=== PATIENT | female | born 1945 | race Caucasian/White ===

== ENCOUNTER → 2017-05-26 09:46 | Outpatient (CLI) | payer SELFPAY ==
[2017-05-26 12:04] LABS: Absolute Lymphocyte Count 2.91 X10^3/ul (0.83-4.51); Absolute Neutrophil Count 4.9 X10^3/uL (2.0-7.7); Basophil# 0.02 X10^3/uL; Basophil% 0.2 % (0-1); Eosinophil# 0.17 X10^3/uL; Hematocrit 36.2 % (37-47); Hemoglobin 11.6 g/dl (12.0-15.0); Lymphocyte # 2.91 X10^3/ul (4.0); Lymphocyte % 33.4 % (19-41); Mean Corpuscular Hgb 28.1 pg (27.0-32.0); Mean Corpuscular Volume 87.7 fL (81-99); Mean Platelet Vol. 11.2 fl (6.2-12.0); Monocyte# 0.65 X10^3/uL; Monocyte% 7.5 % (0-10); Neutrophil # 4.94 X10^3/uL (2.7-7.7); Neutrophil % 56.8 % (47-70); Platelet Count 274 K/mm3 (150-450); RBC Distribution Width CV 14.6 % (11.6-14.6); RBC Distribution Width SD 46.4 fl (35.1-43.9); Red Blood Count 4.13 M/mm3 (4.2-5.4); White Blood Count 8.7 K/mm3 (4.4-11.0)
[2017-05-26 12:21] LABS: POSITIVE COUNT NO; POSITIVE DIFFERENTIAL NO; POSITIVE MORPHOLOGY NO
[2017-05-26 12:23] LABS: Vitamin B12 834 pg/mL (211-911); Vitamin D,25 Hydroxy 16.8 ng/mL (29.95-100.01)
[2017-05-26 12:29] LABS: AST(SGOT) 24 U/L (15-37); Alanine Aminotransfer ALT/SGPT 29 U/L (13-56); Alkaline Phosphatase 101 U/L (45-117); Anion Gap 9 (5-15); BUN 17 mg/dL (7-18); BUN/Creat Ratio 18.8 RATIO (10-20); CRP < 2.90 mg/L (0.0-3.0); Calcium,Total 9.2 mg/dL (8.5-10.1); Chloride 105 mmol/L (98-107); EST Glomerular Filtration Rate 66 mL/min (>60); Est Glom Filt Rate - Afr Amer 79 mL/min (>60); Ferritin 76 ng/mL (8-252); Glucose 90 mg/dL (74-106); Magnesium 2.1 mg/dL (1.6-2.6); Potassium 4.5 mmol/L (3.5-5.1); Sodium Level 138 mmol/L (136-145); Thyroid Stim Hormone (TSH) 0.72 uIU/mL (0.358-3.74)
== END ==
PROVIDERS: Family Provider Family Medicine; PCP Family Medicine; Visit Provider Family Medicine
DX: K50.80 Crohn's disease of both small and large intestine without complications (principal); D53.9 Nutritional anemia, unspecified
CPT/HCPCS: 36415; 80053; 82306; 82607; 82728; 82746; 83735; 84443; 85025; 86140

== ENCOUNTER → 2017-08-26 10:00 | Outpatient (CLI) | payer MEDICARE, BC, SELFPAY ==
[2017-08-26 12:04] LABS: Absolute Lymphocyte Count 1.75 X10^3/ul (0.83-4.51); Absolute Neutrophil Count 4.5 X10^3/uL (2.0-7.7); Basophil# 0.02 X10^3/uL; Basophil% 0.3 % (0-1); Eosinophils% 2.9 % (0-5); Hematocrit 36.2 % (37-47); Hemoglobin 11.3 g/dl (12.0-15.0); Lymphocyte # 1.75 X10^3/ul (4.0); Lymphocyte % 25.7 % (19-41); Mean Corp Hgb Conc 31.2 g/gl (32-36); Mean Corpuscular Volume 89.6 fL (81-99); Mean Platelet Vol. 11.1 fl (6.2-12.0); Monocyte# 0.33 X10^3/uL; Monocyte% 4.9 % (0-10); Neutrophil # 4.49 X10^3/uL (2.7-7.7); Neutrophil % 66.1 % (47-70); Platelet Count 257 K/mm3 (150-450); RBC Distribution Width CV 13.7 % (11.6-14.6); RBC Distribution Width SD 45.4 fl (35.1-43.9); Red Blood Count 4.04 M/mm3 (4.2-5.4); White Blood Count 6.8 K/mm3 (4.4-11.0)
[2017-08-26 12:06] LABS: POSITIVE COUNT NO; POSITIVE DIFFERENTIAL NO; POSITIVE MORPHOLOGY NO
[2017-08-26 12:30] LABS: AST(SGOT) 30 U/L (15-37); Alanine Aminotransfer ALT/SGPT 29 U/L (13-56); Alkaline Phosphatase 99 U/L (45-117); Anion Gap 7 (5-15); BUN 15 mg/dL (7-18); CRP 5.31 mg/L (0.0-3.0); Calcium,Total 9.1 mg/dL (8.5-10.1); Chloride 106 mmol/L (98-107); Creatinine, Serum 0.84 mg/dL (0.55-1.02); EST Glomerular Filtration Rate 72 mL/min (>60); Est Glom Filt Rate - Afr Amer 87 mL/min (>60); Ferritin 54 ng/mL (8-252); Glucose 100 mg/dL (74-106); Hemoglobin A1c 5.8 % (4.2-6.3); Magnesium 2.3 mg/dL (1.6-2.6); Potassium 4.4 mmol/L (3.5-5.1); Sodium Level 138 mmol/L (136-145)
== END ==
PROVIDERS: Family Provider Family Medicine; PCP Family Medicine; Visit Provider Family Medicine
DX: K50.80 Crohn's disease of both small and large intestine without complications (principal); E11.9 Type 2 diabetes mellitus without complications; M79.7 Fibromyalgia
CPT/HCPCS: 36415; 80053; 82728; 83036; 83735; 85025; 86140

== ENCOUNTER → 2018-01-03 09:41 | Outpatient (CLI) | payer MEDICARE, BC, SELFPAY ==
--- NOTE | 2018-01-03 09:43 | ECHOD_ITS ---
Reason For Study: MURMUR Procedure This was a 2D Doppler, Color Flow transthoracic echocardiogram. Exam performed in department. Left Ventricle Normal LV size. Left ventricular systolic function is normal. The estimated ejection fraction is 68 %. Stage 1 diastolic dysfunction. No regional wall motion abnormalities noted. Right Ventricle Normal RV size. Normal systolic function. Atria Normal left atrium. Normal right atrium. Mitral Valve There is mild mitral annular calcification. Tricuspid Valve Normal tricuspid valve. Aortic Valve Trisinus/trileaflet aortic valve. Mild focal aortic valve calcification. Mild to moderate aortic stenosis. Peak aortic valve gradient 29 mmHg. Mean aortic valve gradient 18 mmHg. Calculated aortic valve area (continuity equation) is 1.1 cm2. Pulmonic Valve Normal pulmonic valve. Great Vessels Normal aortic root. The pulmonary artery is normal size. Normal inferior vena cava. Pericardium/Pleural No pericardial effusion. MMode/2D Measurements & Calculations LVIDd: 4.1 cm IVSd: 1.2 cm LVOT diam: 2.0 cm LVIDs: 2.9 cm LVPWd: 1.1 cm LVOT area: 3.1 cm2 RVDd: 3.1 cm FS: 30.5 % Ao root diam: 3.3 cm LAV(MOD-bp): 41.4 ml LVAd ap4: 24.8 cm2 LA dimension: 4.0 cm LAV(MOD-bp) Indexed: 21.9 ml/m2 EDV(MOD-sp4): 61.4 ml LAV(MOD-sp2): 46.8 ml EDV(sp4-el): 64.8 ml LAV(MOD-sp4): 32.9 ml LVAs ap4: 11.3 cm2 ESV(MOD-sp4): 18.3 ml ESV(sp4-el): 18.2 ml EF(MOD-sp4): 70.2 % EF(sp4-el): 71.9 % SV(MOD-sp4): 43.1 ml SV(sp4-el): 46.6 ml Aortic Valve Planimetry: 1.2 cm2 LA A4 area: 13.2 cm2 LA dimension(2D): 4.0 cm RA A4 area: 9.9 cm2 Time Measurements MV dec time: 0.24 sec Doppler Measurements & Calculations MV E max garret: 99.9 cm/sec Lat Peak E' Garret: 7.4 cm/sec Med Peak E' Garret: 7.9 cm/sec MV A max garret: 119.8 cm/sec E/E' lat: 13.5 E/E' med: 12.6 MV E/A: 0.83 MV V2 max: 125.7 cm/sec Ao V2 max: 271.9 cm/sec LV V1 max: 101.1 cm/sec MV max P.3 mmHg Ao max P.6 mmHg LV V1 max P.1 mmHg MV V2 mean: 78.1 cm/sec Ao V2 mean: 201.2 cm/sec LV V1 mean P.2 mmHg MV mean P.7 mmHg Ao mean P.8 mmHg LV V1 mean: 70.4 cm/sec MV V2 VTI: 32.1 cm Ao V2 VTI: 57.4 cm LV V1 VTI: 22.9 cm MVA(VTI): 2.2 cm2 KAMLESH(I,D): 1.2 cm2 KAMLESH(V,D): 1.1 cm2 SV(LVOT): 70.0 ml PA V2 max: 119.6 cm/sec TR max garret: 203.6 cm/sec TR max P.6 mmHg MV P1/2t-pr_phl: 78.1 msec Interpretation Summary Normal LV size. Left ventricular systolic function is normal. The estimated ejection fraction is 68 %. Stage 1 diastolic dysfunction. Mild to moderate aortic stenosis. Calculated aortic valve area (continuity equation) is 1.1 cm2. Ordering Physician: Shaun Del Valle Referring Physician: JAMIE FUENTES Performed By: Ghazala Espinoza, LORRIE, RVT
== END ==
PROVIDERS: Family Provider Family Medicine; PCP Family Medicine; Referring Provider Internal Medicine Cardiovascular Disease; Visit Provider Internal Medicine Cardiovascular Disease
DX: I35.0 Nonrheumatic aortic (valve) stenosis (principal)
CPT/HCPCS: 93306

== ENCOUNTER → 2018-01-05 08:52 | Outpatient (CLI) | payer MEDICARE, BC, SELFPAY ==
[2018-01-05 10:19] LABS: Absolute Lymphocyte Count 1.62 X10^3/ul (0.83-4.51); Absolute Neutrophil Count 3.8 X10^3/uL (2.0-7.7); Basophil# 0.02 X10^3/uL; Basophil% 0.3 % (0-1); Eosinophil# 0.17 X10^3/uL; Eosinophils% 2.8 % (0-5); Hematocrit 35.3 % (37-47); Lymphocyte # 1.62 X10^3/ul (4.0); Lymphocyte % 26.9 % (19-41); Mean Corp Hgb Conc 31.2 g/gl (32-36); Mean Corpuscular Hgb 27.2 pg (27.0-32.0); Mean Corpuscular Volume 87.2 fL (81-99); Mean Platelet Vol. 10.4 fl (6.2-12.0); Monocyte# 0.44 X10^3/uL; Monocyte% 7.3 % (0-10); Neutrophil # 3.77 X10^3/uL (2.7-7.7); Neutrophil % 62.5 % (47-70); Platelet Count 278 K/mm3 (150-450); RBC Distribution Width CV 15.1 % (11.6-14.6); RBC Distribution Width SD 48.6 fl (35.1-43.9); Red Blood Count 4.05 M/mm3 (4.2-5.4)
[2018-01-05 10:21] LABS: POSITIVE COUNT NO; POSITIVE DIFFERENTIAL NO; POSITIVE MORPHOLOGY NO
[2018-01-05 10:28] LABS: Erythrocyte Sedimentation Rate 41 mm/hr (0-30)
[2018-01-05 10:53] LABS: Ferritin 40 ng/mL (8-252); Thyroid Stim Hormone (TSH) 0.59 uIU/mL (0.358-3.74)
[2018-01-05 11:34] LABS: Vitamin D,25 Hydroxy 31.6 ng/mL (29.95-100.01)
[2018-01-06 11:12] LABS: Vitamin B12 441 pg/mL (211-911)
[2018-01-10 11:53] LABS: Zinc, Plasma or Serum 75 ug/dL (56-134)
== END ==
PROVIDERS: Family Provider Family Medicine; PCP Family Medicine; Visit Provider Family Medicine
DX: R53.83 Other fatigue (principal); K50.80 Crohn's disease of both small and large intestine without complications; E11.9 Type 2 diabetes mellitus without complications; K13.0 Diseases of lips
CPT/HCPCS: 36415; 82306; 82607; 82728; 82746; 84443; 84630; 85025; 85652

== ENCOUNTER → 2018-02-24 09:52 | Outpatient (CLI) | payer MEDICARE, BC, SELFPAY ==
[2018-02-24 12:22] LABS: Absolute Lymphocyte Count 1.76 X10^3/ul (0.83-4.51); Absolute Neutrophil Count 3.5 X10^3/uL (2.0-7.7); Basophil# 0.01 X10^3/uL; Basophil% 0.2 % (0-1); Eosinophil# 0.14 X10^3/uL; Eosinophils% 2.4 % (0-5); Hematocrit 36.3 % (37-47); Hemoglobin 11.4 g/dl (12.0-15.0); Lymphocyte # 1.76 X10^3/ul (4.0); Lymphocyte % 30.6 % (19-41); Mean Corp Hgb Conc 31.4 g/gl (32-36); Mean Corpuscular Hgb 26.7 pg (27.0-32.0); Mean Platelet Vol. 11.1 fl (6.2-12.0); Monocyte# 0.35 X10^3/uL; Monocyte% 6.1 % (0-10); Neutrophil % 60.7 % (47-70); Platelet Count 229 K/mm3 (150-450); RBC Distribution Width CV 14.4 % (11.6-14.6); RBC Distribution Width SD 44.5 fl (35.1-43.9); Red Blood Count 4.27 M/mm3 (4.2-5.4); White Blood Count 5.8 K/mm3 (4.4-11.0)
[2018-02-24 12:27] LABS: POSITIVE COUNT NO; POSITIVE DIFFERENTIAL NO; POSITIVE MORPHOLOGY NO
[2018-02-24 12:40] LABS: Erythrocyte Sedimentation Rate 36 mm/hr (0-30)
[2018-02-24 12:41] LABS: Vitamin B12 478 pg/mL (211-911); Vitamin D,25 Hydroxy 25.9 ng/mL (29.95-100.01)
[2018-02-24 12:44] LABS: AST(SGOT) 29 U/L (15-37); Alanine Aminotransfer ALT/SGPT 32 U/L (13-56); Albumin, Serum 3.9 g/dL (3.2-5.0); Alkaline Phosphatase 103 U/L (45-117); Anion Gap 10 (5-15); BUN 12 mg/dL (7-18); BUN/Creat Ratio 15.1 RATIO (10-20); Calcium,Total 8.9 mg/dL (8.5-10.1); Chloride 106 mmol/L (98-107); EST Glomerular Filtration Rate 76 mL/min (>60); Est Glom Filt Rate - Afr Amer 92 mL/min (>60); Ferritin 36 ng/mL (8-252); Globulin 4.1 g/dL (2.2-4.2); Glucose 75 mg/dL (74-106); Magnesium 2.2 mg/dL (1.6-2.6); Potassium 4.1 mmol/L (3.5-5.1); Sodium Level 140 mmol/L (136-145); Thyroid Stim Hormone (TSH) 0.68 uIU/mL (0.358-3.74)
== END ==
PROVIDERS: Family Provider Family Medicine; PCP Family Medicine; Visit Provider Family Medicine
DX: K50.80 Crohn's disease of both small and large intestine without complications (principal)
CPT/HCPCS: 36415; 80053; 82306; 82607; 82728; 82746; 83735; 84443; 85025; 85652

== ENCOUNTER → 2018-03-29 08:09 | Outpatient (CLI) | payer MEDICARE, BC, SELFPAY ==
--- NOTE | 2018-03-29 08:14 | BI_ITS ---
MAMMOGRAPHY - BILATERAL SCREENING REASON FOR EXAM: Female, 72 years old. Routine annual screening examination. PERTINENT HISTORY: Non-contributory. TECHNIQUE: Digital bilateral breast joslyn (3D mammographic acquisition) in the CC and MLO projections. 2-D mediolateral oblique (MLO) and craniocaudad (CC) views of both breasts were obtained. CAD: Full Field Digital Mammography with Computer Added Detection was performed. COMPARISON: Comparison is made with prior study dated October 15, 2016 and April 17, 2015. FINDINGS: Breast Composition: The breasts are heterogeneously dense, which may obscure small masses. There are no dominant masses or suspicious calcifications. Stable benign-appearing bilateral axillary lymph nodes. No other significant abnormalities are identified. There has been no significant change since the prior study. BI/SCREENING MAMM (CAD), BILAT IMPRESSION: Stable bilateral screening mammogram. Yearly follow-up mammogram recommended. (A) ASSESSMENT CATEGORY: BIRADS Category 2: Benign. A letter regarding these results will be sent to the patient by the facility within 30 days. Approximately 10% of breast cancers are not detected by mammography. A normal mammogram should not delay biopsy of a clinically suspicious abnormality. [id number] Electronically Signed: Rohit Bryant MD at 9:51 EST Tel [phone], Service support ,
--- OUTSIDE RECORDS SUMMARY | 2018-05-31 08:49 | XMS RPT_ITS ---
:1945 Author Organization OHIP Support Name Relationship Address Phone DARNELL PENNINGTON Unavailable [address] + [place] [address] R Unavailable Unavailable Unavailable TRISTON DAVIS Unavailable [address] + [place] [address] GORGE, DARNELL Unavailable [address] + [place] [address] R Unavailable Unavailable Unavailable DAVISTRISTON Unavailable [address] + [place] [address] GORGE, DARNELL Unavailable [address] + [place] [address] R Unavailable Unavailable Unavailable TRISTON DAVIS Unavailable [address] + [place] [address] GORGE, DARNELL Unavailable [address] + [place] [address] R Unavailable Unavailable Unavailable TRISTON DAVIS Unavailable [address] + [place] [address] GORGE, DARNELL Unavailable [address] + [place] [address] R Unavailable Unavailable Unavailable TRISTON DAVIS Unavailable [address] + [place] [address] GORGE, DARNELL Unavailable [address] + [place] [address] R Unavailable Unavailable Unavailable DAVISTRISTON Unavailable [address] + [place] [address] GORGE, DARNELL Unavailable [address] + [place] [address] R Unavailable Unavailable Unavailable DAVISTRISTON Unavailable [address] + [place] [address] GORGE, DARNELL Unavailable [address] + [place] [address] R Unavailable Unavailable Unavailable TRISTON DAVIS Unavailable [address] + [place] [address] Care Team Providers Name Role Phone CORNELIUS, ESSENCE NABI Attending Unavailable CORNELIUS, ESSENCE NABI Referring Unavailable CORNELIUS, ESSENCE NABI Attending Unavailable CORNELIUS, ESSENCE NABI Referring Unavailable Ta, Jamie Attending Unavailable Ta, Jamie Primary Care Unavailable CORNELIUS, ESSENCE Consulting Unavailable Ta, Jamie Attending Unavailable Ta, Jamie Referring Unavailable Ta, Jamie Primary Care Unavailable Ta, Jamie Attending Unavailable Ta, Jamie Primary Care Unavailable CORNELIUS, ESSENCE Consulting Unavailable Ta, Jamie Attending Unavailable Ta, Jamie Primary Care Unavailable Eligio, Vinem[place] Attending Unavailable Ta, Jamie Referring Unavailable Eligio, Shaun Attending Unavailable Ta, Jamie Primary Care Unavailable Eligio, Shaun Referring Unavailable Eligio, Vinem[place] Attending Unavailable Eligio, [place] Referring Unavailable Ta, Jamie Primary Care Unavailable Eligio, [place] Consulting Unavailable Ta, Jamie Attending Unavailable Ta, Jamie Primary Care Unavailable PROBLEMS PROBLEMS DATE TYPE CONDITION / CODE ATTENDING STATUS SOURCE 02/24/2018 Unknown K50.80 - Crohn's Jamie Ta Active [place] disease of both Community small and large Hospital intestine without Repository complications / K50.80(ICD-10) 01/17/2018 Unknown R53.83 - Other Jamie Ta Active [place] fatigue / Community R53.83(ICD-10) Hospital Repository 01/05/2018 Unknown I35.0 - Eligio, Shaun Active [place] Nonrheumatic aortic Community (valve) stenosis / Hospital I35.0(ICD-10) Repository 12/23/2017 Unknown I10 - Essential Eligio, Shaun Active [place] (primary) Community hypertension / Hospital I10(ICD-10) Repository 08/26/2017 Unknown M79.7 - Jamie Ta Active [place] Fibromyalgia / Community M79.7(ICD-10) Hospital Repository PROCEDURES PROCEDURES No Procedure Records FoundRESULTS RESULTS SCREENING MAMM (CAD), Observed: 03/29/2018 Status: F Source: [place] 8:14 AM [facility] REPOSITORY [facility] Imaging Services [address] [place] [address] SCREENING MAMM (CAD), BILAT MR#: [id number] Acct: [id number] Name: FRANCINE DAVIS I Rep #: [id number] : 1945 F 72 From: Rohit Bryant MD PCP: Jamie Ta MD Status: REG CLI Study: SCREENING MAMM (CAD), BILAT Date of Exam: 03/29/18 Exam# [id number] Ordering Dr: Jamie Ta MD MAMMOGRAPHY - BILATERAL SCREENING REASON FOR EXAM: Female, 72 years old. Routine annual screening examination. PERTINENT HISTORY: Non-contributory. TECHNIQUE: Digital bilateral breast joslyn (3D mammographic acquisition) in the CC and MLO projections. 2-D mediolateral oblique (MLO) and craniocaudad (CC) views of both breasts were obtained. CAD: Full Field Digital Mammography with Computer Added Detection was performed. COMPARISON: Comparison is made with prior study dated October 15, 2016 and April 17, 2015. FINDINGS: Breast Composition: The breasts are heterogeneously dense, which may obscure small masses. There are no dominant masses or suspicious calcifications. Stable benign-appearing bilateral axillary lymph nodes. No other significant abnormalities are identified. There has been no significant change since the prior study. BI/SCREENING MAMM (CAD), BILAT IMPRESSION: Stable bilateral screening mammogram. Yearly follow-up mammogram recommended. (A) ASSESSMENT CATEGORY: BIRADS Category 2: Benign. A letter regarding these results will be sent to the patient by the facility within 30 days. Approximately 10% of breast cancers are not detected by mammography. A normal mammogram should not delay biopsy of a clinically suspicious abnormality. [id number] Electronically Signed: Rohit Bryant MD at 9:51 EST Tel [phone], Service support , CC: Jamie Ta MD Welder Machine Operator: Signed CBC W/DIFF, AUTOMATED Collected: 02/24/2018 Status: F Source: [place] 9:55 AM [facility] REPOSITORY TYPE CODE TESTS RESULT OUT OF RANGE REFERENCE UNITS LAB L100.1000 4.4-11.0 K/mm3 Normal WBC 5.8 LAB L100.1200 4.2-5.4 M/mm3 Normal RBC 4.27 LAB L100.1300 12.0-15.0 g/dl Low HGB 11.4 LAB L100.1400 37-47 % Low HCT 36.3 LAB L100.1500 81-99 fL Normal MCV 85.0 LAB L100.1600 27.0-32.0 pg Low MCH 26.7 LAB L100.1700 32-36 g/gl Low MCHC 31.4 LAB L100.1810 11.6-14.6 % Normal RDW CV 14.4 LAB L100.1820 35.1-43.9 fl High RDW SD 44.5 LAB L100.1900 150-450 K/mm3 Normal PLT 229 LAB L100.2000 6.2-12.0 fl Normal MPV 11.1 LAB L100.2100 47-70 % Normal NEUT% 60.7 LAB L100.2200 19-41 % Normal LY% 30.6 LAB L100.2300 0-10 % Normal MONO% 6.1 LAB L100.2400 0-5 % Normal EO% 2.4 LAB L100.2500 0-1 % Normal BASO% 0.2 LAB L100.2550 0.0-0.9 % Normal IM GRAN % 0.000 Result Comment: IG% - Immature Granulocytes (promyelocytes, myelocytes and metamyelocytes) > 1% indicates that a LEFT SHIFT is Present. LAB L100.2620 2.0-7.7 X10 3/uL Normal Absolute Neut 3.5 LAB L100.2720 0.83-4.51 X10 3/ul Normal Absolute Lymph 1.76 Performed By: #### L100.0100, L101.9900 #### [facility] [address] [place], [place], [id number] ERYTHROCYTE SED RATE Collected: 02/24/2018 Status: F Source: [place] 9:55 AM [facility] REPOSITORY TYPE CODE TESTS RESULT OUT OF RANGE REFERENCE UNITS LAB L102.0000 0-30 mm/hr High SED RATE 36 Performed By: #### L100.0100, L101.9900 #### [facility] [address] [place], [address] VITAMIN B12 Collected: 02/24/2018 Status: F Source: [place] 9:55 AM [facility] REPOSITORY TYPE CODE TESTS RESULT OUT OF RANGE REFERENCE UNITS LAB L503.0105 211-911 pg/mL Normal Vitamin B12 478 Performed By: #### L503.0105, L506.1000 #### [facility] [address] [place], [address] VITAMIN D,25 HYDROXY Collected: 02/24/2018 Status: F Source: [place] 9:55 AM [facility] REPOSITORY TYPE CODE TESTS RESULT OUT OF REFERENCE UNITS RANGE LAB L506.1000 29.95-100.01 ng/mL Low Vitamin D 25.9 25-OH Result Comment: Vitamin D 25(OH) Status Range Deficiency <20 ng/mL (50nmol/L) Insuffciency 20 - 30 ng/mL (50 - 75 nmol/L) Sufficiency 30 - 100 ng/mL (75 - 250 nmol/L) Toxicity >100 ng/mL (>250 nmol/L) Performed By: #### L503.0105, L506.1000 #### [facility] [address] [place], [address] COMPREHENSIVE METABOLIC Collected: 02/24/2018 Status: F Source: [facility] 9:55 AM [facility] REPOSITORY Order Comment: Is Patient Taking Vitamins or Folic Acid Supplements? N TYPE CODE TESTS RESULT OUT OF RANGE REFERENCE UNITS LAB L501.0100 74-106 mg/dL Normal GLU 75 Result Comment: Please note revised GLUCOSE reference range effective 2017. LAB L501.1000 7-18 mg/dL Normal BUN 12 LAB L501.1100 0.55-1.02 mg/dL Normal CREAT,SERUM 0.80 Result Comment: The validity of the calculated GFR AND GFRAA in patients over 70 years has not been determined. Clinical correlation is essential. LAB L501.1110 >60 mL/min Normal EST GFR 76 Result Comment: Non- GFR Calc LAB L501.1115 >60 mL/min Normal EST GFR - AA 92 Result Comment: GFR Calc LAB L501.1300 10-20 RATIO Normal BUN/CRE 15.1 LAB L501.1500 6.4-8.2 g/dL T Normal PROT 8.0 LAB L501.1800 3.2-5.0 g/dL Normal ALB 3.9 LAB L501.1950 2.2-4.2 g/dL Normal GLOB 4.1 LAB L501.2000 0.9-2.4 RATIO Normal A/G 1.0 LAB L501.2200 8.5-10.1 mg/dL CA Normal 8.9 LAB L501.4100 15-37 U/L Normal AST 29 LAB L501.4305 45-117 U/L Normal ALK P 103 LAB L501.4405 13-56 U/L Normal ALT 32 LAB L501.4600 0.20-1.00 mg/dL T Normal BILI 0.30 LAB L501.5300 136-145 mmol/L NA Normal 140 LAB L501.5600 3.5-5.1 mmol/L K Normal 4.1 LAB L501.5900 98-107 mmol/L CL Normal 106 LAB L501.6100 21.0-32.0 mmol/L Normal CO2 24.0 LAB L501.6200 5-15 Normal GAP 10 Performed By: #### L500.4050, L501.5200, L501.9520, L503.6550, L506.0250 #### [facility] [address] [facility] [place], [place], [address] MAGNESIUM Collected: 02/24/2018 Status: F Source: [place] 9:55 AM [facility] REPOSITORY Order Comment: Is Patient Taking Vitamins or Folic Acid Supplements? N TYPE CODE TESTS RESULT OUT OF RANGE REFERENCE UNITS LAB L501.5200 1.6-2.6 mg/dL Normal MG 2.2 Performed By: #### L500.4050, L501.5200, L501.9520, L503.6550, L506.0250 #### [facility] [address] [facility] [place], [address] THYROID STIM HORMONE Collected: 02/24/2018 Status: F Source: [place] ([place]) 9:55 AM [facility] REPOSITORY Order Comment: Is Patient Taking Vitamins or Folic Acid Supplements? N TYPE CODE TESTS RESULT OUT OF RANGE REFERENCE UNITS LAB L501.9520 0.358-3.74 uIU/mL Normal TSH 0.68 Performed By: #### L500.4050, L501.5200, L501.9520, L503.6550, L506.0250 #### [facility] [address] [place], [address] FERRITIN Collected: 02/24/2018 Status: F Source: [place] 9:55 AM [facility] REPOSITORY Order Comment: Is Patient Taking Vitamins or Folic Acid Supplements? N TYPE CODE TESTS RESULT OUT OF RANGE REFERENCE UNITS LAB L503.6550 8-252 ng/mL Normal FERRITIN 36 Performed By: #### L500.4050, L501.5200, L501.9520, L503.6550, L506.0250 #### [facility] [address] [place], [address] FOLATES, (FOLIC ACID) Collected: 02/24/2018 Status: F Source: [place] 9:55 AM [facility] REPOSITORY Order Comment: Is Patient Taking Vitamins or Folic Acid Supplements? N TYPE CODE TESTS RESULT OUT OF RANGE REFERENCE UNITS LAB L506.0250 3.1-55.4 ng/mL Normal FOLATES 16.70 Result Comment: Slight Hemolysis, Result may be falsely increased. Performed By: #### L500.4050, L501.5200, L501.9520, L503.6550, L506.0250 #### [facility] [address] [place], [address] CBC W/DIFF, AUTOMATED Collected: 01/05/2018 Status: F Source: [place] 8:55 AM [facility] REPOSITORY TYPE CODE TESTS RESULT OUT OF RANGE REFERENCE UNITS LAB L100.1000 4.4-11.0 K/mm3 Normal WBC 6.0 LAB L100.1200 4.2-5.4 M/mm3 Low RBC 4.05 LAB L100.1300 12.0-15.0 g/dl Low HGB 11.0 LAB L100.1400 37-47 % Low HCT 35.3 LAB L100.1500 81-99 fL Normal MCV 87.2 LAB L100.1600 27.0-32.0 pg Normal MCH 27.2 LAB L100.1700 32-36 g/gl Low MCHC 31.2 LAB L100.1810 11.6-14.6 % High RDW CV 15.1 LAB L100.1820 35.1-43.9 fl High RDW SD 48.6 LAB L100.1900 150-450 K/mm3 Normal PLT 278 LAB L100.2000 6.2-12.0 fl Normal MPV 10.4 LAB L100.2100 47-70 % Normal NEUT% 62.5 LAB L100.2200 19-41 % Normal LY% 26.9 LAB L100.2300 0-10 % Normal MONO% 7.3 LAB L100.2400 0-5 % Normal EO% 2.8 LAB L100.2500 0-1 % Normal BASO% 0.3 LAB L100.2550 0.0-0.9 % Normal IM GRAN % 0.200 Result Comment: IG% - Immature Granulocytes (promyelocytes, myelocytes and metamyelocytes) > 1% indicates that a LEFT [place]IFT is Present. LAB L100.2620 2.0-7.7 X10 3/uL Normal Absolute Neut 3.8 LAB L100.2720 0.83-4.51 X10 3/ul Normal Absolute Lymph 1.62 Performed By: #### L100.0100, L101.9900 #### [facility] [address] [facility] [place], [place], [address] ERYTHROCYTE SED RATE Collected: 01/05/2018 Status: F Source: [place] 8:55 AM [facility] REPOSITORY TYPE CODE TESTS RESULT OUT OF RANGE REFERENCE UNITS LAB L102.0000 0-30 mm/hr High SED RATE 41 Performed By: #### L100.0100, L101.9900 #### [facility] [address] [place], [place], [id number] THYROID STIM HORMONE Collected: 01/05/2018 Status: F Source: [place] ([place]) 8:55 AM [facility] REPOSITORY Order Comment: Comments: [id number] VIT A AND VIT E SERUM ROOM TEMP Is Patient Taking Vitamins or Folic Acid Supplements? N TYPE CODE TESTS RESULT OUT OF RANGE REFERENCE UNITS LAB L501.9520 0.358-3.74 uIU/mL Normal TSH 0.59 Performed By: #### L501.9520, L503.6550, L506.0250 #### [facility] [address] [place], [address] FERRITIN Collected: 01/05/2018 Status: F Source: [place] 8:55 AM [facility] REPOSITORY Order Comment: Comments: [id number] VIT A AND VIT E SERUM ROOM TEMP Is Patient Taking Vitamins or Folic Acid Supplements? N TYPE CODE TESTS RESULT OUT OF RANGE REFERENCE UNITS LAB L503.6550 8-252 ng/mL Normal FERRITIN 40 Performed By: #### L501.9520, L503.6550, L506.0250 #### [facility] [address] [place], [address] FOLATES, (FOLIC ACID) Collected: 01/05/2018 Status: F Source: [place] 8:55 AM [facility] REPOSITORY Order Comment: Comments: [id number] VIT A AND VIT E SERUM ROOM TEMP Is Patient Taking Vitamins or Folic Acid Supplements? N TYPE CODE TESTS RESULT OUT OF RANGE REFERENCE UNITS LAB L506.0250 3.1-55.4 ng/mL Normal FOLATES 14.50 Performed By: #### L501.9520, L503.6550, L506.0250 #### [facility] [address] [place], [place], [address] VITAMIN D,25 HYDROXY Collected: 01/05/2018 Status: F Source: [place] 8:55 AM [facility] REPOSITORY Order Comment: PLEASE ADD B12 TO BLOOD FROM 01-05-18 WG3 2 M TYPE CODE TESTS RESULT OUT OF RANGE REFERENCE UNITS LAB L506.1000 29.95-100.01 ng/mL Normal Vitamin D 31.6 25-OH Result Comment: Vitamin D 25(OH) Status Range Deficiency <20 ng/mL (50nmol/L) Insuffciency 20 - 30 ng/mL (50 - 75 nmol/L) Sufficiency 30 - 100 ng/mL (75 - 250 nmol/L) Toxicity >100 ng/mL (>250 nmol/L) Performed By: #### L506.1000, L503.0105 #### [facility] [address] [place], [address] VITAMIN B12 Collected: 01/05/2018 Status: F Source: [place] 8:55 AM [facility] REPOSITORY Order Comment: PLEASE ADD B12 TO BLOOD FROM 01-05-18 WG3 2 M TYPE CODE TESTS RESULT OUT OF RANGE REFERENCE UNITS LAB L503.0105 211-911 pg/mL Normal Vitamin B12 441 Performed By: #### L506.1000, L503.0105 #### [facility] [address] [facility] [place], [address] ZINC, PLASMA OR Collected: 01/05/2018 Status: F Source: [place] 8:55 AM [facility] REPOSITORY TYPE CODE TESTS RESULT OUT OF RANGE REFERENCE UNITS LAB L3300.9900 56-134 ug/dL Normal ZINC 75 Plasma/Ser Result Comment: Detection Limit = 5 Performed at: [facility] [address] [id number] Controller Mechanic: Danette Hodgson MD, Phone: [phone] Performed By: #### L3300.9900 #### [facility] (refer to report for specific site) refer to report for address and phone number MISCELLANEOUS LAB Collected: 01/05/2018 Status: F Source: [place]ED[place] 8:55 AM [facility] REPOSITORY Order Comment: Comments: [id number] VIT A AND VIT E SERUM ROOM TEMP Test(s) Ordered: [id number] VIT A AND VIT E SERUM ROOM TEMP TYPE CODE TESTS RESULT OUT OF RANGE REFERENCE UNITS LAB L801.1541 Normal [facility] LAB TEST Result Comment: TEST RESULT UNITS REFERENCE INTERVAL Vitamin A and E Vitamin A 39.8 ug/dL 36.4 - 108.0 Reference intervals for vitamin A determined from National Health and Nutrition Examination Survey, 5941-5168. Individuals with vitamin A less than 20 ug/dL are considered vitamin A deficient and those with serum concentrations less than 10 ug/dL are considered severely deficient. This test was developed and its performance characteristics determined by [facility]. It has not been cleared or approved by the Food and Drug Administration. Vitamin E(Alpha Tocopherol) 14.2 mg/L 9.0 - 29.0 Vitamin E(Gamma Tocopherol) 1.2 mg/L 0.5 - 4.9 Reference intervals for alpha and gamma-tocopherol determined from National Health and Nutrition Examination Survey, 5273-0779. Individuals with alpha-tocopherol levels less than 5.0 mg/L are considered vitamin E deficient. This test was developed and its performance characteristics determined by [facility]. It has not been cleared or approved by the Food and Drug Administration. TESTING PERFORMED AT [facility]. ORIGINAL REPORT ON FILE IN LAB CONTAINS ADDITIONAL TEST SITE INFORMATION. Performed By: #### L801.1541 #### [facility] [address] [facility] [place], [address] ECHOCARDIOGRAM COMPLETE Observed: 01/05/2018 Status: F Source: [place] 7:06 AM [facility] REPOSITORY [facility] Cardiovascular Services [address] [place] [address] Echo Complete 01/03/18 1001 MR#: [id number] Acct: [id number] Name: FRANCINE DAVIS I Rep #: [id number] : 1945 72 From: Shaun Del Valle MD Attending Dr: Shaun Del Valle MD Status: REG CLI Ordering Dr: Shaun Del Valle MD Date: 01/03/18 Location: [facility] Sex: F C Admitted: Reason For Study: MURMUR Procedure This was a 2D Doppler, Color Flow transthoracic echocardiogram. Exam performed in department. Left Ventricle Normal LV size. Left ventricular systolic function is normal. The estimated ejection fraction is 68 %. Stage 1 diastolic dysfunction. No regional wall motion abnormalities noted. Right Ventricle Normal RV size. Normal systolic function. Atria Normal left atrium. Normal right atrium. Mitral Valve There is mild mitral annular calcification. Tricuspid Valve Normal tricuspid valve. Aortic Valve Trisinus/trileaflet aortic valve. Mild focal aortic valve calcification. Mild to moderate aortic stenosis. Peak aortic valve gradient 29 mmHg. Mean aortic valve gradient 18 mmHg. Calculated aortic valve area (continuity equation) is 1.1 cm2. Pulmonic Valve Normal pulmonic valve. Great Vessels Normal aortic root. The pulmonary artery is normal size. Normal inferior vena cava. Pericardium/Pleural No pericardial effusion. MMode/2D Measurements AND Calculations LVIDd: 4.1 cm IVSd: 1.2 cm LVOT diam: 2.0 cm LVIDs: 2.9 cm LVPWd: 1.1 cm LVOT area: 3.1 cm2 RVDd: 3.1 cm FS: 30.5 % Ao root diam: 3.3 cm LAV(MOD-bp): 41.4 ml LVAd ap4: 24.8 cm2 LA dimension: 4.0 cm LAV(MOD-bp) Indexed: 21.9 ml/m2 EDV(MOD-sp4): 61.4 ml LAV(MOD-sp2): 46.8 ml EDV(sp4-el): 64.8 ml LAV(MOD-sp4): 32.9 ml LVAs ap4: 11.3 cm2 ESV(MOD-sp4): 18.3 ml ESV(sp4-el): 18.2 ml EF(MOD-sp4): 70.2 % EF(sp4-el): 71.9 % SV(MOD-sp4): 43.1 ml SV(sp4-el): 46.6 ml Aortic Valve Planimetry: 1.2 cm2 LA A4 area: 13.2 cm2 LA dimension(2D): 4.0 cm RA A4 area: 9.9 cm2 Time Measurements MV dec time: 0.24 sec Doppler Measurements AND Calculations MV E max garret: 99.9 cm/sec Lat Peak E' Garret: 7.4 cm/sec Med Peak E' Garret: 7.9 cm/sec MV A max garret: 119.8 cm/sec E/E' lat: 13.5 E/E' med: 12.6 MV E/A: 0.83 MV V2 max: 125.7 cm/sec Ao V2 max: 271.9 cm/sec LV V1 max: 101.1 cm/sec MV max P.3 mmHg Ao max P.6 mmHg LV V1 max P.1 mmHg MV V2 mean: 78.1 cm/sec Ao V2 mean: 201.2 cm/sec LV V1 mean P.2 mmHg MV mean P.7 mmHg Ao mean P.8 mmHg LV V1 mean: 70.4 cm/sec MV V2 VTI: 32.1 cm Ao V2 VTI: 57.4 cm LV V1 VTI: 22.9 cm MVA(VTI): 2.2 cm2 KAMLESH(I,D): 1.2 cm2 KAMLESH(V,D): 1.1 cm2 SV(LVOT): 70.0 ml PA V2 max: 119.6 cm/sec TR max garret: 203.6 cm/sec TR max P.6 mmHg MV P1/2t-pr_phl: 78.1 msec Interpretation Summary Normal LV size. Left ventricular systolic function is normal. The estimated ejection fraction is 68 %. Stage 1 diastolic dysfunction. Mild to moderate aortic stenosis. Calculated aortic valve area (continuity equation) is 1.1 cm2. Ordering Physician: Shaun Del Valle Referring Physician: JAMIE TA Performed By: Ghazala Espinoza, LORRIE, RVT 01/05/18 0705 Date Shaun Del Valle MD CC: Shaun Del Valle MD; Jamie Ta MD Date Dictated: 10/29/18 1001 Date Transcribed: 01/05/18704 Welder Machine Operator: Signed CARDIOLOGY VISIT Observed: 12/23/2017 Status: F Source: [place] REPORT 11:27 AM [facility] REPOSITORY [place] [facility] [address] [place] [address] OFFICE VISIT Date of Service: 12/23/17 MR#: [id number] Acct: [id number] Name: FRANCINE DAVIS I Rep #: [id number] : 1945 Provider: Shaun Del Valle MD Age/Sex: 72/F Location: [facility] Status: Signed HPI HPI Chief Complaint: Follow up Details: FRANCINE DAVIS, is a 72 F who presents to the office today for a follow-up visit. She is a pleasant lady with a history of aortic stenosis which is noted to be mild. She denies any chest pain or shortness breath or paroxysmal nocturnal dyspnea pedal edema she has not had any neck arm or jaw discomfort to suggest angina. She is been compliant with her medications. She says she had a knee replacement which was uneventful. She denies any dizziness near syncope or syncope. Her physical exam demonstrates clear lung gonzalez regular rate and rhythm, a 2/6 systolic harsh murmur noted left sternal border radiating to the carotids no pedal edema is noted her blood pressure is under excellent control. Intake Vital Signs12/23/17 Height 5 ft 6 in 12/23/17 Weight: 179 lb 12/23/17 Body Mass Index (BMI) 28.8 12/23/17 Blood Pressure 118/60 12/23/17 Respiratory Rate 18 12/23/17 Pulse Rate 76 Intake Visit Reasons: 1 Y FU Allergies azathioprine [From Azasan] Allergy (Verified 02/24/17 13:10) Anaphylaxis codeine Adverse Reaction (Verified 02/24/17 13:10) Vomiting naproxen [From Naprosyn] Adverse Reaction (Verified 02/24/17 13:10) Upset Stomach Medications Cholecalciferol (Vitamin D3) [Vitamin D3] 1 tab PO QHS 02/26/13 [History Confirmed 12/23/17] Fluticasone 0.05% [Flonase Nasal [place]] 1 spray NASAL DAILY PRN 02/26/13 [History Confirmed 12/23/17] Ipratropium [place] 0.06% [ATROVENT NASAL SPRAY] 2 spray NASAL 4X/DAY PRN 02/26/13 [History Confirmed 12/23/17] Levothyroxine [Synthroid] 150 mcg PO QHS 02/26/13 [History Confirmed 12/23/17] Metformin HCl [Glucophage] 1,000 mg PO QHS 02/26/13 [History Confirmed 12/23/17] Sertraline HCl [Zoloft] 75 mg PO QHS 02/26/13 [History Confirmed 02/24/17] Insulin Detemir [Levemir FlexPen] 30 units SUBCUT QHS 07/05/13 [History Confirmed 12/23/17] Lansoprazole [Prevacid] 30 mg PO QHS 03/04/15 [History Confirmed 12/23/17] Liraglutide [Victoza] 1.2 mg SQ DAILY 03/04/15 [History Confirmed 12/23/17] Magnesium Oxide [Mag-Ox 400] 400 mg PO QHS 03/04/15 [History Confirmed 12/23/17] Pioglitazone [Actos] 30 mg PO QHS 03/04/15 [History Confirmed 12/23/17] Mesalamine [Apriso] 4 tab PO DAILY 02/24/17 [History Confirmed 12/23/17] Acetaminophen [Tylenol] 1,000 mg PO Q8 #90 tab 03/11/17 [Rx Confirmed 12/23/17] Senna/Docusate Sodium [Senokot-S] 2 tab PO BID #20 tab 03/11/17 [Rx] losartan 100 mg tablet 100 mg PO DAILY 12/23/17 [History Confirmed 12/23/17] metronidazole 500 mg tablet 500 mg PO TID 12/23/17 [History Confirmed 12/23/17] PFSH Medical History Non-rheumatic aortic stenosis (Chronic) Diabetes mellitus, type II (Chronic) Anemia (Chronic) Anxiety and depression (Chronic) Crohn disease (Chronic) GI bleed (Chronic 03/10/17) Hypothyroidism (Chronic) Obstructive sleep apnea (Chronic) Osteoarthritis (Chronic) Surgical History History of knee replacement, total (Suspected) History of cataract surgery (Resolved) History of hysterectomy (Resolved) Hx of cholecystectomy (Resolved) Family History Mother CAD (coronary artery disease) Father CAD (coronary artery disease) Hypertension Cancer Social History Smoking Status: Never smoker ROS Const Const: Positive for fatigue (GI Bleed in March. Now feels fatigue and weak) and weakness; negative for night sweats, excessive sweating, frequent falls, headache(s) or daytime sleepiness Eyes Eyes: Negative for loss of peripheral vision, transient loss of vision, blind spots, double vision or blurry vision ENT ENT: Positive for dizziness (Last 2 weeks, resolved with prednisone); negative for headache(s), balance problems, Nosebleed/epistaxis, tongue swelling or lip swelling Cardio Chest Pain: No Palpitations: No Edema: None Muscle aches with walking: None Resp Respiratory: Negative for SOB at rest, SOB orthopnea\SOB lying down, Cough, paroxysmal nocturnal dyspnea or SOB with activity GI GI: Negative nausea, vomiting, heartburn, black,tarry stools or bright, red blood in stools : Negative for hematuria Musc Musc: Positive for joint pain (Knee pain); negative for balance problems, muscle aches/ myalgia or muscle weakness Skin Skin: Negative non-healing lesions, unusual bruising or rash Neuro Neuro: Positive for weakness and dizziness (Last 2 weeks, resolved with prednisone); negative for frequent falls, headache(s), double vision, lightheadedness, orthostatic symptoms, blurry vision or lack of coordination José Miguel Hematologic/Lymphatic: Negative for easy bruising or easy bleeding Endo Endo: Positive for fatigue (GI Bleed in March. Now feels fatigue and weak); negative for excessive sweating, cold intolerance, heat intolerance, increased thirst/drinking or hair loss Psych Psych: Negative for anxiety or depression Allergy Allergy/Immunology: Negative for throat swelling, Negative for tongue swelling, Negative for hives, Negative for rash, Negative for lip swelling Cardiology Exam Const Appearance: cooperative, healthy appearing, well developed, well groomed and no acute distress Nutritional Appearance: well nourished and average body habitus Orientation: alert, awake and oriented x3 Head Head: normal to inspection, normocephalic and atraumatic Ears: hearing grossly normal bilaterally and external ears normal Nose: external nose normal, nasal mucous membranes and turbinates normal, nares normal, septum normal, no nasal discharge Face and Sinus: face symmetric Mouth: oral mucosae normal, tongue normal, oropharynx normal and moist mucous membranes Teeth and gingiva: dentition normal Throat: posterior oropharynx normal, tonsils normal and uvula midline Eyes General: appearance normal, both eyes and all related structures Eyelids: eyelids normal Conjunctivae: conjunctivae normal Pupils: PERRL, normal by confrontation and accommodation normal EOM: EOM intact bilaterally Neck Neck: normal visual inspection, trachea midline and no JVD JVD: +5 Carotids: normal carotid upstroke and bounding pulses Chest Chest inspection: normal inspection of the chest, symmetric chest movement and normal respiratory effort Auscultation: Bilateral: Clear to Auscultation Cardio Palpation: normal PMI Rate: regular rate Rhythm: regular rhythm Heart sounds: S1 normal and S2 normal Murmur: Grade 2/6, early systolic and LLSB GI GI: normal to inspection, soft, no hepatosplenomegaly and bowel sounds present Neuro General: alert, awake, oriented x3, no focal sensory deficit, gait normal and moves all extremities Skin Skin: no rashes or lesions noted Extremities Pulses: Normal: Right Femoral Pulse, Left Femoral Pulse, Right Dorsalis Pedis Pulse, Left Dorsalis Pedis Pulse, Right Posterior Tibial Pulse, Left Posterior Tibial Pulse, Right Radial Pulse, Left Radial Pulse Lower Extremity Edema: None: Bilateral Musculoskel Musculoskeletal: No joint tenderness Psych Psychological: normal affect Assessment AND Plan 1. Non-rheumatic aortic stenosis I35.0 Plan She has a history of aortic stenosis we does not appear to be significant at this time and is asymptomatic. My recommendation is to continue observing her and obtain an echocardiogram to assess her left ventricular function. We will also measure the gradient across the aortic valve. No further recommendations will be made regarding the above. Orders Orders: 2. Essential hypertension I10 Plan She does have a history of benign essential hypertension which is under good control. She did have some diastolic dysfunction as well. She complains of lack of energy and says that she would be requesting a blood work profile through your outfit. With regard to her medications I would not suggest any changes at this time. Thank you for allowing me to participate in the care of your patient. 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) Coding Level of Care Code Off vis,est,level 3 Diagnoses Non-rheumatic aortic stenosis I35.0 Essential hypertension I10 Hypertension type: essential hypertension Coding Level of Care Code Off vis,est,level 3 Diagnoses Non-rheumatic aortic stenosis I35.0 Essential hypertension I10 Hypertension type: essential hypertension 12/23/17 1127 <Electronically signed by Shaun Del Valle MD> Date Shaun Del Valle MD Cosigner Signature: Date (if applicable) CC: Jamie Ta MD PROGRESS Observed: 10/04/2017 Status: COMPLETED Source: [place] 2:29 PM [facility] [place] REPOSITORY HNO ID: [id number] Author: Essence Shields Service: (none) Author Type: Physician Type: Progress Notes Filed: 10/04/2017 3:20 PM Note Text: Crohn's disease HPI Francine Davis is a 72 year old female here today for Crohn's disease. Feeling extremely tired, wanting to sleep all day. Diarrhea is better, only once evie while.- usually one or two a day. Not losing wt. Rt. Knee replaced and doing well. Hgb-11.3, WBC-6.8 k, plat-257, Heptic And renal tests are normal, CRP=5.3 Ferritin-54 Hgb A1c-5.8 Current Outpatient Prescriptions: RESTASIS MULTIDOSE 0.05 % drop Use 1 Drop in both eyes twice daily. Ipratropium Tuttle (ATROVENT) 0.03 % nasal spray Cholecalciferol, Vitamin D3, (VITAMIN D-3) 2,000 unit cap Take by mouth. promethazine (PHENERGAN) 12.5 mg tablet Take 12.5 mg by mouth every 6 hours as needed. MORPHINE SULFATE/PF (MORPHINE, PF, ORAL) Take by mouth. HUMIRA PEN 40 mg/0.8 mL pnkt LEVEMIR FLEXTOUCH 100 unit/mL (3 mL) inpn injection lansoprazole (PREVACID) 30 mg capsule VICTOZA 2-PRETTY 0.6 mg/0.1 mL (18 mg/3 mL) pnij losartan (COZAAR) 50 mg tablet magnesium oxide (MAG-OX) 400 mg tablet metFORMIN ER (FORTAMET) 1,000 mg 24 hr tablet 800 mg. EASY TOUCH 32 gauge x 16 ndle pioglitazone (ACTOS) 30 mg tablet 15 mg. sertraline (ZOLOFT) 50 mg tablet Take 1 tablet by mouth once daily. levothyroxine (LEVOXYL) 150 mcg tablet Take 1 tablet by mouth once daily. fluticasone 50 mcg/actuation NASAL nasal spray Use 2 Sprays in each nostril twice daily. blood sugar diagnostic (ASCENSIA MICROFILL) Misc test strip Use as instructedTest blood sugar three times daily . Dx. 250.00 Contour. TYLENOL 325MG CAPLET as necessary No current facility-administered medications for this visit. 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 - Cancer (HCC) - Crohn's disease (HCC) - Delayed gastric emptying - Depression - Diabetes mellitus without mention of complication Diabetes mellitus - Diarrhea - Esophageal reflux Gastroesophageal reflux - Hemorrhage of gastrointestinal tract, unspecified - Insomnia with sleep apnea, unspecified CPAP - Iron deficiency anemia, unspecified - Myalgia and myositis, unspecified - Obesity, unspecified - Obstructive sleep apnea - Regional enteritis of large intestine (HCC) - Regional enteritis of small intestine with large intestine (HCC) - Sarcoidosis (HCC) - Unspecified hypothyroidism Hypothyroidism PAST SURGICAL HISTORY Procedure Laterality Date - COLONOSCOPY 06/24/2015 Dr. Essence Shields- mild diverticulosis, results/biopsy compatible with Crohn's disease - COLONOSCOPY 05/25/2012 Dr. Essence Shields- inflammatory polyp, colon results compatible with Crohn's disease - COLONOSCOPY 10/31/2009 Dr. Frederick Bowden- diverticulosis, sm internal hemorrhoids, chronic active colitis - COLONOSCOPY 07/16/2003 Dr. David Cardona- results compatible with Crohn's disease - EGD 08/21/2009 Dr. Andrea Keane- Gastritis, polyps - EGD 07/16/2003 Dr. David Cardona- small gastric nodularties - LIGATE FALLOPIAN TUBE Tubal ligation - PAST SURGICAL HISTORY OF right knee replacment - REMOVAL GALLBLADDER Cholecystectomy - TOTAL ABDOM HYSTERECTOMY 04/12/1979 Hysterectomy, DEEP - carcinoma in situ FAMILY HISTORY Problem Relation Age of Onset - Thyroid Mother - Ischemic Heart Disease Mother - Heart Mother - Ischemic Heart Disease Father - Heart Father - Cancer Sister - Diabetes Maternal Grandfather - Ischemic Heart Disease Brother REVIEW OF SYSTEMS Review of Systems Constitutional: Positive for chills and fatigue. HENT: Positive for hearing loss. Respiratory: Positive for apnea. Gastrointestinal: Gas PHYSICAL EXAM BP 134/70 Pulse 74 Ht 5' 5 (1.65m) Wt 183 lb (83.0kg) SpO2 99% BMI 30.45 kg/(m2). Physical Exam Constitutional: She is oriented to person, place, and time. She appears well-developed and well-nourished. HENT: Head: Normocephalic and atraumatic. Right Ear: External ear normal. Left Ear: External ear normal. Nose: Nose normal. Mouth/Throat: Oropharynx is clear and moist. Eyes: Conjunctivae and EOM are normal. Pupils are equal, round, and reactive to light. Neck: Normal range of motion. Neck supple. Cardiovascular: Normal rate, regular rhythm, normal heart sounds and intact distal pulses. Pulmonary/Chest: Effort normal and breath sounds normal. Abdominal: Soft. Bowel sounds are normal. Musculoskeletal: Normal range of motion. Neurological: She is alert and oriented to person, place, and time. She has normal reflexes. Skin: Skin is warm and dry. Psychiatric: She has a normal mood and affect. Her behavior is normal. Judgment and thought content normal. I have confirmed and edited as necessary, the PFSH, HPI and ROS obtained by others. ASSESSMENT: Crohn's disease of small intestine without complication (hcc) (primary encounter diagnosis) Crohn's disease of both small and large intestine without complication (hcc) Chronic fatigue syndrome PLAN: No orders found for this visit on 10/04/17. Return in about 6 months (around 04/06/2018). Essence Shields MD DATE: 10/04/17 TIME: 2:29 PM CNOV Observed: 10/04/2017 Status: COMPLETED Source: [place] 2:15 PM [facility] REPOSITORY Office Visit ([facility]) FRANCINE DAVIS I ([id number]) 1945 F Date Time Provider Department 10/04/17 2:15 PM ESSENCE SHIELDS [facility] During your visit today, we recorded the following information about you: Pulse Blood pressure Weight Height 74/minute 134/70 83 kg 1.651 m Essence Shields MD 10/04/2017 3:20 PM Signed Crohn's disease HPI Francine Davis is a 72 year old female here today for Crohn's disease. Feeling extremely tired, wanting to sleep all day. Diarrhea is better, only once evie while.- usually one or two a day. Not losing wt. Rt. Knee replaced and doing well. Hgb-11.3, WBC-6.8 k, plat-257, Heptic And renal tests are normal, CRP=5.3 Ferritin-54 Hgb A1c-5.8 Current Outpatient Prescriptions: RESTASIS MULTIDOSE 0.05 % drop Use 1 Drop in both eyes twice daily. Ipratropium Tuttle (ATROVENT) 0.03 % nasal spray Cholecalciferol, Vitamin D3, (VITAMIN D-3) 2,000 unit cap Take by mouth. promethazine (PHENERGAN) 12.5 mg tablet Take 12.5 mg by mouth every 6 hours as needed. MORPHINE SULFATE/PF (MORPHINE, PF, ORAL) Take by mouth. HUMIRA PEN 40 mg/0.8 mL pnkt LEVEMIR FLEXTOUCH 100 unit/mL (3 mL) inpn injection lansoprazole (PREVACID) 30 mg capsule VICTOZA 2-PRETTY 0.6 mg/0.1 mL (18 mg/3 mL) pnij losartan (COZAAR) 50 mg tablet magnesium oxide (MAG-OX) 400 mg tablet metFORMIN ER (FORTAMET) 1,000 mg 24 hr tablet 800 mg. EASY TOUCH 32 gauge x /16 ndle pioglitazone (ACTOS) 30 mg tablet 15 mg. sertraline (ZOLOFT) 50 mg tablet Take 1 tablet by mouth once daily. levothyroxine (LEVOXYL) 150 mcg tablet Take 1 tablet by mouth once daily. fluticasone 50 mcg/actuation NASAL nasal spray Use 2 Sprays in each nostril twice daily. blood sugar diagnostic (ASCENSIA MICROFILL) Misc test strip Use as instructedTest blood sugar three times daily . Dx. 250.00 Contour. TYLENOL 325MG CAPLET as necessary No current facility-administered medications for this visit. 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 - Cancer (HCC) - Crohn's disease (HCC) - Delayed gastric emptying - Depression - Diabetes mellitus without mention of complication Diabetes mellitus - Diarrhea - Esophageal reflux Gastroesophageal reflux - Hemorrhage of gastrointestinal tract, unspecified - Insomnia with sleep apnea, unspecified CPAP - Iron deficiency anemia, unspecified - Myalgia and myositis, unspecified - Obesity, unspecified - Obstructive sleep apnea - Regional enteritis of large intestine (HCC) - Regional enteritis of small intestine with large intestine (HCC) - Sarcoidosis (HCC) - Unspecified hypothyroidism Hypothyroidism PAST SURGICAL HISTORY Procedure Laterality Date - COLONOSCOPY 06/24/2015 Dr. Essence Shields- mild diverticulosis, results/biopsy compatible with Crohn's disease - COLONOSCOPY 05/25/2012 Dr. Essence Shields- inflammatory polyp, colon results compatible with Crohn's disease - COLONOSCOPY 10/31/2009 Dr. Frederick Bowden- diverticulosis, sm internal hemorrhoids, chronic active colitis - COLONOSCOPY 07/16/2003 Dr. David Cardona- results compatible with Crohn's disease - EGD 08/21/2009 Dr. Andrea Keane- Gastritis, polyps - EGD 07/16/2003 Dr. David Cardona- small gastric nodularties - LIGATE FALLOPIAN TUBE Tubal ligation - PAST SURGICAL HISTORY OF right knee replacment - REMOVAL GALLBLADDER Cholecystectomy - TOTAL ABDOM HYSTERECTOMY 04/12/1979 Hysterectomy, DEEP - carcinoma in situ FAMILY HISTORY Problem Relation Age of Onset - Thyroid Mother - Ischemic Heart Disease Mother - Heart Mother - Ischemic Heart Disease Father - Heart Father - Cancer Sister - Diabetes Maternal Grandfather - Ischemic Heart Disease Brother REVIEW OF SYSTEMS Review of Systems Constitutional: Positive for chills and fatigue. HENT: Positive for hearing loss. Respiratory: Positive for apnea. Gastrointestinal: Gas PHYSICAL EXAM BP 134/70 Pulse 74 Ht 5' 5 (1.65m) Wt 183 lb (83.0kg) SpO2 99% BMI 30.45 kg/(m2). Physical Exam Constitutional: She is oriented to person, place, and time. She appears well-developed and well-nourished. HENT: Head: Normocephalic and atraumatic. Right Ear: External ear normal. Left Ear: External ear normal. Nose: Nose normal. Mouth/Throat: Oropharynx is clear and moist. Eyes: Conjunctivae and EOM are normal. Pupils are equal, round, and reactive to light. Neck: Normal range of motion. Neck supple. Cardiovascular: Normal rate, regular rhythm, normal heart sounds and intact distal pulses. Pulmonary/Chest: Effort normal and breath sounds normal. Abdominal: Soft. Bowel sounds are normal. Musculoskeletal: Normal range of motion. Neurological: She is alert and oriented to person, place, and time. She has normal reflexes. Skin: Skin is warm and dry. Psychiatric: She has a normal mood and affect. Her behavior is normal. Judgment and thought content normal. I have confirmed and edited as necessary, the PFSH, HPI and ROS obtained by others. ASSESSMENT: Crohn's disease of small intestine without complication (hcc) (primary encounter diagnosis) Crohn's disease of both small and large intestine without complication (hcc) Chronic fatigue syndrome PLAN: No orders found for this visit on 10/04/17. Return in about 6 months (around 04/06/2018). Essence Shields MD DATE: 10/04/17 TIME: 2:29 PM Referring Provider: ESSENCE SHIELDS [[id number]] Allergies As of Date: 10/04/2017 Noted Allergy Reaction AZATHIOPRINE 08/13/2003 CODEINE 08/13/2003 NSAIDS (NON-STEROIDAL ANTI-INFLAM*08/13/2003 Comments: naprosyn Date Reviewed: 10/04/2017 Reviewed by: Essence Shields - Fully Assessed Reason for Visit: Crohns [292] Primary Visit Diagnosis:Crohn's disease of small intestine without complication (HCC) [K50.00] Other Visit Diagnoses:Crohn's disease of both small and large intestine without complication (HCC) [K50.80] Chronic fatigue syndrome [R53.82] Prescriptions as of 10/04/2017 Sig: RESTASIS MULTIDOSE 0.05 % EYE* Use 1 Drop in both eyes twice* IPRATROPIUM BROMIDE 0.03 % NA* CHOLECALCIFEROL (VITAMIN D3) * Take by mouth. PROMETHAZINE 12.5 MG TABLET Take 12.5 mg by mouth every 6* MORPHINE (PF) ORAL Take by mouth. HUMIRA PEN 40 MG/0.8 ML SUBCU* LEVEMIR FLEXTOUCH U-100 INSUL* LANSOPRAZOLE 30 MG CAPSULE,DE* VICTOZA 2-PRETTY 0.6 MG/0.1 ML (* LOSARTAN 50 MG TABLET MAGNESIUM OXIDE 400 MG TABLET METFORMIN ER 1,000 MG TABLET,* 800 mg. EASY TOUCH 32 GAUGE X 3/16 N* PIOGLITAZONE 30 MG TABLET 15 mg. * SERTRALINE 50 MG TABLET Take 1 tablet by mouth once d* * LEVOTHYROXINE 150 MCG TABLET Take 1 tablet by mouth once d* * FLUTICASONE 50 MCG/ACTUATION * Use 2 Sprays in each nostril * * BLOOD SUGAR DIAGNOSTIC STRIPS Use as instructedTest blood s* * TYLENOL 325 MG TABLET as necessary Problem List As Of Date 10/04/2017 Noted Resolved Regional enteritis of large intestine [K50.10] INVALID FOR* More... CONSTIPATION [564.0] INVALID FOR* ABDOMINAL PAIN UNSPEC SITE [R10.9] INVALID FOR* SARCOIDOSIS [D86.9] INVALID FOR* DIABETES MELLITUS TYPE II-UNCOMPL [E11.9] INVALID FOR* More... OVERWEIGHT [E66.9] ESOPHAGEAL REFLUX [K21.9] More... INSOMNIA W SLEEP APNEA NOS [G47.00, G47.30] More... HYPOTHYROIDISM NOS [E03.9] More... MYALGIA AND MYOSITIS NOS [TKL9301] Benign Neoplasm of Colon [D12.6] More... NONINFEC GASTROENTERIT NEC [K52.9] More... INT HEMORRHOID W/O COMPL [K64.8] HYPERLIPIDEMIA NEC/NOS [E78.5] INVALID FOR* ANEMIA NOS [D64.9] INVALID FOR* More... PERSONAL HISTORY OF MALIGNANCY- CERVIX [Z85.41] INVALID FOR* More... Allergy, Unspecified not Elsewhere Classified [*INVALID FOR* Family History of Malignant Neoplasm of Gastroi*INVALID FOR* Regional Enteritis of Unspecified Site [K50.90] INVALID FOR* Depression [F32.9] INVALID FOR* Insomnia [G47.00] INVALID FOR* Iron Deficiency Anemia [D50.9] INVALID FOR* Acute Gastritis without Mention of Hemorrhage [*INVALID FOR* Delayed Gastric Emptying [K30] INVALID FOR* Unspecified Iron Deficiency Anemia [D50.9] INVALID FOR* Diarrhea [R19.7] INVALID FOR* Unspecified, Hemorrhage of Gastrointestinal Tra*INVALID FOR* Crohn's colitis [K50.10] INVALID FOR* Diabetes mellitus [E11.9] INVALID FOR* Medications Discontinued During This Encounter mesalamine ER (APRISO) 0.375 gram ca* 60 c* 0 04/08/2017 10/04/2017 Route: ORAL Sig: Take 1 capsule by mouth once daily. Patient not taking: Reported on 10/04/2017 Disc: Course of therapy completed mesalamine ER (APRISO) 0.375 gram ca* 120 * 3 04/08/2017 10/04/2017 Sig: Take 4 capsules by mouth in the morning with or without food Patient not taking: Reported on 10/04/2017 Disc: Changing Therapy/Dosage Form rivaroxaban (XARELTO) 10 mg tablet 30 t* 1 03/12/2017 10/04/2017 Route: ORAL Sig: Take 1 tablet by mouth once daily. Patient not taking: Reported on 10/04/2017 Disc: Erroneous entry ketoconazole (NIZORAL) 2 % cream 09/12/2016 10/04/2017 Class: Historical Med Sig: Disc: Discontinued by Patient VITAMIN B COMP AND VIT C NO.6 (VITAM* 10/04/2017 Class: Historical Med Route: ORAL Sig: Take by mouth. Disc: Discontinued by Patient B Complex Vitamins capsule 10/04/2017 Class: Historical Med Route: ORAL Sig: Take 1 capsule by mouth once daily. Disc: Discontinued by Patient oxyCODONE IR (ROXICODONE) 5 mg immed* 03/26/2017 10/04/2017 Class: Historical Med Sig: Disc: Discontinued by another Health Care Provider meclizine (ANTIVERT) 25 mg tab 10/04/2017 Class: Historical Med Route: ORAL Sig: Take 25 mg by mouth three times daily. Disc: Course of therapy completed rivaroxaban (XARELTO) 10 mg tablet 30 t* 0 04/08/2017 10/04/2017 Route: ORAL Sig: Take 1 tablet by mouth once daily. Patient not taking: Reported on 10/04/2017 Disc: Erroneous entry zolpidem (AMBIEN) 10 mg Tab 30 t* 6 07/22/2011 10/04/2017 Class: Print RX Route: ORAL Sig: Take 1 tablet by mouth daily at bedtime. FOR SLEEP Patient not taking: Reported on 10/04/2017 Disc: Discontinued by Patient Disposition: Return in about 6 months (around 04/06/2018). Follow-up and Disposition History Recorded Encounter Status:Closed by ESSENCE SHIELDS MD on 10/04/17 CBC W/DIFF, AUTOMATED Collected: 08/26/2017 Status: F Source: [place] 10:01 AM [facility] [place] REPOSITORY Order Comment: PLEASE SEND COPIES TO [phone] TYPE CODE TESTS RESULT OUT OF RANGE REFERENCE UNITS LAB L100.1000 4.4-11.0 K/mm3 Normal WBC 6.8 LAB L100.1200 4.2-5.4 M/mm3 Low RBC 4.04 LAB L100.1300 12.0-15.0 g/dl Low HGB 11.3 LAB L100.1400 37-47 % Low HCT 36.2 LAB L100.1500 81-99 fL Normal MCV 89.6 LAB L100.1600 27.0-32.0 pg Normal MCH 28.0 LAB L100.1700 32-36 g/gl Low MCHC 31.2 LAB L100.1810 11.6-14.6 % Normal RDW CV 13.7 LAB L100.1820 35.1-43.9 fl High RDW SD 45.4 LAB L100.1900 150-450 K/mm3 Normal PLT 257 LAB L100.2000 6.2-12.0 fl Normal MPV 11.1 LAB L100.2100 47-70 % Normal NEUT% 66.1 LAB L100.2200 19-41 % Normal LY% 25.7 LAB L100.2300 0-10 % Normal MONO% 4.9 LAB L100.2400 0-5 % Normal EO% 2.9 LAB L100.2500 0-1 % Normal BASO% 0.3 LAB L100.2550 0.0-0.9 % Normal IM GRAN % 0.100 Result Comment: IG% - Immature Granulocytes (promyelocytes, myelocytes and metamyelocytes) > 1% indicates that a LEFT SHIFT is Present. LAB L100.2620 2.0-7.7 X10 3/uL Normal Absolute Neut 4.5 LAB L100.2720 0.83-4.51 X10 3/ul Normal Absolute Lymph 1.75 Performed By: #### L100.0100 #### [facility] [address] [place], [address] COMPREHENSIVE METABOLIC Collected: 08/26/2017 Status: F Source: [facility] 10:01 AM [facility] REPOSITORY Order Comment: PLEASE SEND COPIES TO [phone] TYPE CODE TESTS RESULT OUT OF RANGE REFERENCE UNITS LAB L501.0100 74-106 mg/dL Normal GLU 100 Result Comment: Fasting Glucose result from 100 to 125 mg/dL suggests IMPAIRED HOMEOSTASIS per A.D.A. criteria. Please note revised GLUCOSE reference range effective 2017. LAB L501.1000 7-18 mg/dL Normal BUN 15 LAB L501.1100 0.55-1.02 mg/dL Normal CREAT,SERUM 0.84 Result Comment: The validity of the calculated GFR AND GFRAA in patients over 70 years has not been determined. Clinical correlation is essential. LAB L501.1110 >60 mL/min Normal EST GFR 72 Result Comment: Non- GFR Calc LAB L501.1115 >60 mL/min Normal EST GFR - AA 87 Result Comment: GFR Calc LAB L501.1300 10-20 RATIO Normal BUN/CRE 18.0 LAB L501.1500 6.4-8.2 g/dL T Normal PROT 8.0 LAB L501.1800 3.2-5.0 g/dL Normal ALB 4.0 LAB L501.1950 2.2-4.2 g/dL Normal GLOB 4.0 LAB L501.2000 0.9-2.4 RATIO Normal A/G 1.0 LAB L501.2200 8.5-10.1 mg/dL CA Normal 9.1 LAB L501.4100 15-37 U/L Normal AST 30 LAB L501.4305 45-117 U/L Normal ALK P 99 LAB L501.4405 13-56 U/L Normal ALT 29 LAB L501.4600 0.20-1.00 mg/dL T Normal BILI 0.40 LAB L501.5300 136-145 mmol/L NA Normal 138 LAB L501.5600 3.5-5.1 mmol/L K Normal 4.4 LAB L501.5900 98-107 mmol/L CL Normal 106 LAB L501.6100 21.0-32.0 mmol/L Normal CO2 25.0 LAB L501.6200 5-15 Normal GAP 7 Performed By: #### L500.4050, L501.5200, L501.6710, L503.6550 #### [facility] [address] [place], [address] MAGNESIUM Collected: 08/26/2017 Status: F Source: [place] 10:01 [facility] REPOSITORY Order Comment: PLEASE SEND COPIES TO [phone] TYPE CODE TESTS RESULT OUT OF RANGE REFERENCE UNITS LAB L501.5200 1.6-2.6 mg/dL Normal MG 2.3 Performed By: #### L500.4050, L501.5200, L501.6710, L503.6550 #### [facility] [address] [place], [place], [address] CRP Collected: 08/26/2017 Status: F Source: [place] 10:01 [facility] REPOSITORY Order Comment: PLEASE SEND COPIES TO [phone] TYPE CODE TESTS RESULT OUT OF RANGE REFERENCE UNITS LAB L501.6710 0.0-3.0 mg/L High 5.31 C-REACTIVE PROT Result Comment: C-Reactive Protein (CRP) provides useful information for the diagnosis, therapy and monitoring of inflammatory processes and associated diseases. For the evaluation of Relative Risk for Cardiovascular Disease, a High Sensitivity CRP (HSCRP) should be ordered. Performed By: #### L500.4050, L501.5200, L501.6710, L503.6550 #### [facility] [address] [place], [address] FERRITIN Collected: 08/26/2017 Status: F Source: [place] 10:01 AM [facility] REPOSITORY Order Comment: PLEASE SEND COPIES TO [phone] TYPE CODE TESTS RESULT OUT OF RANGE REFERENCE UNITS LAB L503.6550 8-252 ng/mL Normal F[place] 54 Performed By: #### L500.4050, L501.5200, L501.6710, L503.6550 #### [facility] [address] [place], [place], [address] HEMOGLOBIN A1C Collected: 08/26/2017 Status: F Source: [place] 10:01 AM [facility] REPOSITORY Order Comment: PLEASE SEND COPIES TO [phone] TYPE CODE TESTS RESULT OUT OF RANGE REFERENCE UNITS LAB L501.9985 4.2-6.3 % Normal HGB A1C 5.8 Performed By: #### L501.9985 #### [facility] [address] [place], [address] CBC W/DIFF, AUTOMATED Collected: 05/26/2017 Status: F Source: [place] 9:47 AM [facility] REPOSITORY TYPE CODE TESTS RESULT OUT OF RANGE REFERENCE UNITS LAB L100.1000 4.4-11.0 K/mm3 Normal WBC 8.7 LAB L100.1200 4.2-5.4 M/mm3 Low RBC 4.13 LAB L100.1300 12.0-15.0 g/dl Low HGB 11.6 LAB L100.1400 37-47 % Low HCT 36.2 LAB L100.1500 81-99 fL Normal MCV 87.7 LAB L100.1600 27.0-32.0 pg Normal MCH 28.1 LAB L100.1700 32-36 g/gl Normal MCHC 32.0 LAB L100.1810 11.6-14.6 % Normal RDW CV 14.6 LAB L100.1820 35.1-43.9 fl High RDW SD 46.4 LAB L100.1900 150-450 K/mm3 Normal PLT 274 LAB L100.2000 6.2-12.0 fl Normal MPV 11.2 LAB L100.2100 47-70 % Normal NEUT% 56.8 LAB L100.2200 19-41 % Normal LY% 33.4 LAB L100.2300 0-10 % Normal MONO% 7.5 LAB L100.2400 0-5 % Normal EO% 2.0 LAB L100.2500 0-1 % Normal BASO% 0.2 LAB L100.2550 0.0-0.9 % Normal IM GRAN % 0.100 Result Comment: IG% - Immature Granulocytes (promyelocytes, myelocytes and metamyelocytes) > 1% indicates that a LEFT SHIFT is Present. LAB L100.2620 2.0-7.7 X10 3/uL Normal Absolute Neut 4.9 LAB L100.2720 0.83-4.51 X10 3/ul Normal Absolute Lymph 2.91 Performed By: #### L100.0100 #### [facility] [address] [place], [place], [address] VITAMIN B12 Collected: 05/26/2017 Status: F Source: [place] 9:47 AM [facility] REPOSITORY TYPE CODE TESTS RESULT OUT OF RANGE REFERENCE UNITS LAB L503.0105 211-911 pg/mL Normal Vitamin B12 834 Performed By: #### L503.0105, L506.1000 #### [facility] [address] [place], [place], [address] VITAMIN D,25 HYDROXY Collected: 05/26/2017 Status: F Source: [place] 9:47 AM [facility] REPOSITORY TYPE CODE TESTS RESULT OUT OF REFERENCE UNITS RANGE LAB L506.1000 29.95-100.01 ng/mL Low Vitamin D 16.8 25-OH Result Comment: Vitamin D 25(OH) Status Range Deficiency <20 ng/mL (50nmol/L) Insuffciency 20 - 30 ng/mL (50 - 75 nmol/L) Sufficiency 30 - 100 ng/mL (75 - 250 nmol/L) Toxicity >100 ng/mL (>250 nmol/L) Performed By: #### L503.0105, L506.1000 #### [facility] [address] [place], [place], [address] COMPREHENSIVE METABOLIC Collected: 05/26/2017 Status: F Source: [place] 9:47 AM [facility] REPOSITORY Order Comment: Is Patient Taking Vitamins or Folic Acid Supplements? N TYPE CODE TESTS RESULT OUT OF RANGE REFERENCE UNITS LAB L501.0100 74-106 mg/dL Normal GLU 90 Result Comment: Please note revised GLUCOSE reference range effective 2017. LAB L501.1000 7-18 mg/dL Normal BUN 17 LAB L501.1100 0.55-1.02 mg/dL Normal CREAT,SERUM 0.90 Result Comment: The validity of the calculated GFR AND GFRAA in patients over 70 years has not been determined. Clinical correlation is essential. LAB L501.1110 >60 mL/min Normal EST GFR 66 Result Comment: Non- GFR Calc LAB L501.1115 >60 mL/min Normal EST GFR - AA 79 Result Comment: GFR Calc LAB L501.1300 10-20 RATIO Normal BUN/CRE 18.8 LAB L501.1500 6.4-8.2 g/dL T Normal PROT 8.0 LAB L501.1800 3.2-5.0 g/dL Normal ALB 4.0 LAB L501.1950 2.2-4.2 g/dL Normal GLOB 4.0 LAB L501.2000 0.9-2.4 RATIO Normal A/G 1.0 LAB L501.2200 8.5-10.1 mg/dL CA Normal 9.2 LAB L501.4100 15-37 U/L Normal AST 24 LAB L501.4305 45-117 U/L Normal ALK P 101 LAB L501.4405 13-56 U/L Normal ALT 29 Result Comment: Please note revised ALT reference range effective 2017. LAB L501.4600 0.20-1.00 mg/dL Normal T BILI 0.40 LAB L501.5300 136-145 mmol/L Normal NA 138 LAB L501.5600 3.5-5.1 mmol/L Normal K 4.5 LAB L501.5900 98-107 mmol/L Normal CL 105 LAB L501.6100 21.0-32.0 mmol/L Normal CO2 24.0 LAB L501.6200 5-15 Normal GAP 9 Performed By: #### L500.4050, L501.5200, L501.6710, L501.9520, L503.6550, L506.0250 #### [facility] [address] [place], [place], [address] MAGNESIUM Collected: 05/26/2017 Status: F Source: [place] 9:47 AM [facility] REPOSITORY Order Comment: Is Patient Taking Vitamins or Folic Acid Supplements? N TYPE CODE TESTS RESULT OUT OF RANGE REFERENCE UNITS LAB L501.5200 1.6-2.6 mg/dL Normal MG 2.1 Result Comment: Please note revised Magnesium reference range effective 2017. Performed By: #### L500.4050, L501.5200, L501.6710, L501.9520, L503.6550, L506.0250 #### [facility] [address] [place], [place], [address] CRP Collected: 05/26/2017 Status: F Source: [place] 9:47 AM [facility] REPOSITORY Order Comment: Is Patient Taking Vitamins or Folic Acid Supplements? N TYPE CODE TESTS RESULT OUT OF RANGE REFERENCE UNITS LAB L501.6710 0.0-3.0 mg/L Normal < 2.90 C-REACTIVE PROT Result Comment: C-Reactive Protein (CRP) provides useful information for the diagnosis, therapy and monitoring of inflammatory processes and associated diseases. For the evaluation of Relative Risk for Cardiovascular Disease, a High Sensitivity CRP (HSCRP) should be ordered. Performed By: #### L500.4050, L501.5200, L501.6710, L501.9520, L503.6550, L506.0250 #### [facility] [address] [place], [address] THYROID STIM HORMONE Collected: 05/26/2017 Status: F Source: [place] (TSH) 9:47 AM [facility] REPOSITORY Order Comment: Is Patient Taking Vitamins or Folic Acid Supplements? N TYPE CODE TESTS RESULT OUT OF RANGE REFERENCE UNITS LAB L501.9520 0.358-3.74 uIU/mL Normal TSH 0.72 Performed By: #### L500.4050, L501.5200, L501.6710, L501.9520, L503.6550, L506.0250 #### [facility] [address] [place], [address] FERRITIN Collected: 05/26/2017 Status: F Source: [place] 9:47 AM [facility] REPOSITORY Order Comment: Is Patient Taking Vitamins or Folic Acid Supplements? N TYPE CODE TESTS RESULT OUT OF RANGE REFERENCE UNITS LAB L503.6550 8-252 ng/mL Normal FERRITIN 76 Performed By: #### L500.4050, L501.5200, L501.6710, L501.9520, L503.6550, L506.0250 #### [facility] [address] [place], [address] FOLATES, (FOLIC ACID) Collected: 05/26/2017 Status: F Source: [place] 9:47 AM [facility] REPOSITORY Order Comment: Is Patient Taking Vitamins or Folic Acid Supplements? N TYPE CODE TESTS RESULT OUT OF RANGE REFERENCE UNITS LAB L506.0250 3.1-55.4 ng/mL Normal FOLATES 8.80 Performed By: #### L500.4050, L501.5200, L501.6710, L501.9520, L503.6550, L506.0250 #### [facility] [address] [place], [address] PROGRESS Observed: 04/08/2017 Status: COMPLETED Source: [place] 2:32 PM [facility] REPOSITORY HNO ID: [id number] Author: Essence Shields Service: (none) Author Type: Physician Type: Progress Notes Filed: 04/08/2017 3:07 PM Note Text: Crohns HPI:Francine Davis is a 71 year old female who presents for Crohns. Patient states she has been off the Humira since Jan due to knee surgery that she had on Mar 09. She complains of intermittent LLQ abdominal cramping with constipation symptoms followed by diarrhea since she has been taking oxycodone for pain. She complains of nausea prior to BM's at times. She states she had bloody diarrhea while she was hospitalized that has subsided. She complains of being very fatigued. No further GI bleeding or diarrhea. Takes oxycontin for post- op pain for Rt. Knee replacement. Pain slowly improving. Hgb-8 gm on 03/11/17. 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 - Cancer (HCC) - Crohn's disease (HCC) - Delayed gastric emptying - Depression - Diabetes mellitus without mention of complication Diabetes mellitus - Diarrhea - Esophageal reflux Gastroesophageal reflux - Hemorrhage of gastrointestinal tract, unspecified - Insomnia with sleep apnea, unspecified CPAP - Iron deficiency anemia, unspecified - Myalgia and myositis, unspecified - Obesity, unspecified - Obstructive sleep apnea - Regional enteritis of large intestine (HCC) - Regional enteritis of small intestine with large intestine (HCC) - Sarcoidosis (HCC) - Unspecified hypothyroidism Hypothyroidism PAST SURGICAL HISTORY Procedure Laterality Date - COLONOSCOP W/ OR W/O [facility] SPEC 04/11, 07/09, 12/14/2003 Colonoscopy w/ bx. - COLONOSCOP W/ OR W/O [facility] SPEC 11/22/08 Colonoscopy - COLONOSCOPY W/BX 10/30/09 - EGD W/O [facility] SPECIMEN W/BX 08/21/09 Gastritis, polyps, retained food - LIGATE FALLOPIAN TUBE Tubal ligation - REMOVAL GALLBLADDER Cholecystectomy - TOTAL ABDOM HYSTERECTOMY 04/12/1979 Hysterectomy, DEEP - carcinoma in situ Allergies: ALLERGIES Allergen Reactions - Azathioprine - Codeine - Nsaids (Non-Steroid* naprosyn Medications: Ipratropium [place] (ATROVENT) 0.03 % nasal spray oxyCODONE IR (ROXICODONE) 5 mg immediate release tablet Cholecalciferol, Vitamin D3, (VITAMIN D-3) 2,000 unit cap Take by mouth. meclizine (ANTIVERT) 25 mg tab Take 25 mg by mouth three times daily. promethazine (PHENERGAN) 12.5 mg tablet Take 12.5 mg by mouth every 6 hours as needed. MORPHINE SULFATE/PF (MORPHINE, PF, ORAL) Take by mouth. mesalamine ER (APRISO) 0.375 gram capsule Take 4 capsules by mouth in the morning with or without food rivaroxaban (XARELTO) 10 mg tablet Take 1 tablet by mouth once daily. HUMIRA PEN 40 mg/0.8 mL pnkt VITAMIN B COMP AND VIT C NO.6 (VITAMIN B COMP WITH VIT C NO.6 ORAL) Take by mouth. B Complex Vitamins capsule Take 1 capsule by mouth once daily. LEVEMIR FLEXTOUCH 100 unit/mL (3 mL) inpn injection ketoconazole (NIZORAL) 2 % cream lansoprazole (PREVACID) 30 mg capsule VICTOZA 2-PRETTY 0.6 mg/0.1 mL (18 mg/3 mL) pnij losartan (COZAAR) 50 mg tablet magnesium oxide (MAG-OX) 400 mg tablet metFORMIN ER (FORTAMET) 1,000 mg 24 hr tablet EASY TOUCH 32 gauge x 3/16 ndle pioglitazone (ACTOS) 30 mg tablet zolpidem (AMBIEN) 10 mg Tab Take 1 tablet by mouth daily at bedtime. FOR SLEEP sertraline (ZOLOFT) 50 mg tablet Take 1 tablet by mouth once daily. levothyroxine (LEVOXYL) 150 mcg tablet Take 1 tablet by mouth once daily. fluticasone 50 mcg/actuation NASAL nasal spray Use 2 Sprays in each nostril twice daily. blood sugar diagnostic (ASCENSIA MICROFILL) Misc test strip Use as instructedTest blood sugar three times daily . Dx. 250.00 Contour. TYLENOL 325MG CAPLET as necessary mesalamine ER (APRISO) 0.375 gram capsule Take 1 capsule by mouth once daily. rivaroxaban (XARELTO) 10 mg tablet Take 1 tablet by mouth once daily. FAMILY HISTORY Problem Relation Age of Onset - Thyroid Mother - Ischemic Heart Disease Mother - Heart Mother - Ischemic Heart Disease Father - Heart Father - Cancer Sister - Diabetes Maternal Grandfather - Ischemic Heart Disease Brother Employer And Job Title: [employer] (No job title specified) Years Of Education Completed: Not specified Marital Status: to [place] with 2 children Social History Substance Use Topics - Smoking status: Never Smoker - Smokeless tobacco: Never Used - Alcohol use No Review of Systems: Review of Systems Constitutional: Positive for appetite change, fatigue and unexpected weight change. HENT: Positive for rhinorrhea. Gastrointestinal: Change in bowel habits Musculoskeletal: Positive for arthralgias. Joint deformity All other systems reviewed and are negative. Physical Examination: BP 138/62 Pulse 87 Ht 5' 5 (1.65m) Wt 173 lb 8 oz (78.7kg) SpO2 97% BMI 28.87 kg/(m2). Physical Exam Constitutional: She is oriented to person, place, and time. She appears well-developed and well-nourished. HENT: Head: Normocephalic and atraumatic. Right Ear: External ear normal. Left Ear: External ear normal. Nose: Nose normal. Mouth/Throat: Oropharynx is clear and moist. Eyes: Conjunctivae and EOM are normal. Pupils are equal, round, and reactive to light. Neck: Normal range of motion. Neck supple. Cardiovascular: Normal rate, regular rhythm, normal heart sounds and intact distal pulses. Pulmonary/Chest: Effort normal and breath sounds normal. Abdominal: Soft. Bowel sounds are normal. Musculoskeletal: Normal range of motion. Rt. Knee healing well . Neurological: She is alert and oriented to person, place, and time. She has normal reflexes. Skin: Skin is warm and dry. Psychiatric: She has a normal mood and affect. Her behavior is normal. Judgment and thought content normal. ASSESSMENT: Crohn's disease of large intestine without complication (hcc) (primary encounter diagnosis) PLAN: No orders found for this visit on 04/08/17. Return in about 6 months (around 10/06/2017). To start back on kirk Shields MD DATE: 04/08/17 TIME: 3:07 PM ALLERGIES ALLERGIES DATE TYPE / NAME / CODE REACTION SEVERITY SOURCE CODE 02/24/2017 Drug codeine/[id number] Vomiting Unknown [place] Allergy/41 (RXNORM) [facility] [id number]([facility]) Repository 02/24/2017 Drug naproxen/[id number] Upset Stomach Unknown [place] Allergy/41 0(RXNORM) [facility] [id number]([facility]) Repository 02/24/2017 Drug azathioprine/F0060 Anaphylaxis Unknown [place] Allergy/41 67194(RXNORM) [facility] [id number]([facility]) Repository 08/13/2003 DRUG AZATHIOPRINE [place] [address] [address] 3785187([facility] OMED CT) 08/13/2003 DRUG CODEINE [place] [address] [facility]/2003 Drug NSAIDS [facility] Class/4195 (NON-STEROIDAL [place] [address]([facility] ANTI-INFLAMMATORY Repository ED CT) DRUG) ENCOUNTERS ENCOUNTERS ADMIT/DISCHARGE ACCOUNT ADMITTING ENCOUNTER LOCATION SOURCE NUMBER CLASS 03/29/2018 [id number] Ambulatory [facility] ing:OPBI Repository 02/24/2018 [id number] Ambulatory [facility] ing:MFPLAB Repository 01/05/2018 [id number] Ambulatory [facility] ing:MFPLAB Repository 01/03/2018 [id number] Ambulatory BMSBuilding:[place].[facility] Repository 01/03/2018 [id number] Ambulatory [facility] ing:[facility] Repository 12/23/2017/12/24/19 [id number] Ambulatory BMSBuilding:B [place] [address] MS.[facility] Repository 10/04/2017/10/05/19 [id number] Ambulatory [address] Repository 08/26/2017 [id number] Ambulatory [facility] ing:MFPLAB Repository 05/26/2017 [id number] Ambulatory [facility] ing:MFPLAB Repository 04/08/2017/04/08/19 [id number] Ambulatory [address] Repository PAYERS PAYERS ENCOUNTER GUARANTOR PAYER SUBSCRIBER SOURCE 03/29/2018 FRANCINE I Primary FRANCINE Kulkarni [id number] Insurance:MEDICARE WOODWARDDOB: [facility] ELIZABETH DUMONT, PART A BPolicy [id number] [address]Fqk: Number: Repository [id number] (HP) Date:2018-02-04 03/29/2018 Secondary [place] T [place] Insurance:ANTHEMPolic WoodwardDOB: Community y Number: [id number] Hospital [id number] Repository Date:[id number] [address]YZ: 03/29/2018 Tertiary NOT GIVENUNK [place] Insurance:SELF PAY [facility] Number: Effective Repository Date:2018-02-04 02/24/2018 FRANCINE I Primary FRANCINE [id number] Insurance:MEDICARE WOODWARDDOB: [facility] TIM, PART A [facility] [id number] Medical Center [address]Omp: Number: Repository [id number] (HP) Date:2018-02-24 02/24/2018 Secondary [place] T [place] Insurance:ANTHEMPolic WoodwardDOB: Community y Number: [id number] Hospital [id number] Repository Date:3693-86-69BK [address] [place] [address]NO: 02/24/2018 Tertiary NOT GIVENUNK [place] Insurance:SELF PAY [facility] Number: Effective Repository Date:2018-02-24 01/05/2018 FRANCINE I Primary FRANCINE I [place] [id number] Insurance:MEDICARE WOODWARDDOB: Community [facility], PART A [facility] [id number] Medical Center [address]Pso: Number: Repository [id number] (HP) Date:2018-01-05 01/05/2018 Secondary [place] T [place] Insurance:ANTHEMPolic WoodwardDOB: Community y Number: [id number] Hospital [id number] Repository Date:[id number] [address] [place] [address]NA: 01/05/2018 Tertiary NOT GIVENUNK [place] Insurance:SELF PAY [facility] Number: Effective Repository Date:2018-01-05 01/03/2018 FRANCINE I Primary FRANCINE I [place] [id number] Insurance:MEDICARE WOODWARDDOB[facility] [id number] Medical Center [address]Vcl: Number: Repository [id number] (HP) Date:2017-12-23 01/03/2018 Secondary [place] T [place] Insurance:ANTHEMPolic WoodwardDOB: Community y Number: [id number] Hospital [id number] Repository Date:[id number] [address] [place] [address] [place] [address]TF: 01/03/2018 Tertiary NOT GIVENUNK [place] Insurance:SELF PAY [facility] Number: Effective Repository Date:2018-01-03 01/03/2018 FRANCINE I Primary FRANCINE I [place] [id number] Insurance:MEDICARE WOODWARDDOB: Community [place] TIM, PART A [facility] [id number] Medical Center [address]Rhh: Number: Repository [id number] (HP) Date:2017-12-23 01/03/2018 Secondary [place] T [place] Insurance:ANTHEMPolic WoodwardDOB: Community y Number: [id number] Hospital [id number] Repository Date:[id number] [address] [place] [address]TU: 01/03/2018 Tertiary NOT GIVENUNK [place] Insurance:SELF PAY [facility] Number: Effective Repository Date:2017-12-23 12/23/2017 FRANCINE I Primary FRANCINE I [place] [id number] Insurance:MEDICARE WOODWARDDOB: [facility] [id number] Medical Center [address]Rug: Number: Repository [id number] (HP) Date:2017-02-16 12/23/2017 Secondary [place] T [place] Insurance:ANTHEMPolic WoodwardDOB: Community y Number: [id number] Hospital [id number] Repository Date:9362-27-33OA [address] [place] [address]BY: 12/23/2017 Tertiary NOT GIVENUNK [place] Insurance:SELF PAY [facility] Number: Effective Repository Date:2017-04-21 08/26/2017 FRANCINE I Primary FRANCINE I [place] [id number] Insurance:MEDICARE WOODWARDDOB: [facility] TIM, PART A [facility] [id number] Medical Center [address]Fzv: Number: Repository [id number] (HP) Date:2017-08-26 08/26/2017 Secondary [place] T [place] Insurance:ANTHEMPolic WoodwardDOB: Community y Number: [id number] Hospital [id number] Repository Date:[id number]DSCT[address], [place] [address]ER: 08/26/2017 Tertiary NOT GIVENUNK [place] Insurance:SELF PAY [facility] Number: Effective Repository Date:2017-08-26 05/26/2017 FRANCINE [place] Primary NOT GIVENUNK [place] [id number] Insurance:SELF PAY [facility]Br[facility] [address]Ylu: Number: Effective Repository Date:2017-05-26 ()
== END ==
PROVIDERS: Family Provider Family Medicine; PCP Family Medicine; Referring Provider Family Medicine; Visit Provider Family Medicine
DX: Z12.31 Encounter for screening mammogram for malignant neoplasm of breast (principal)
CPT/HCPCS: 77063; 77067

== ENCOUNTER → 2018-04-19 08:11 | Outpatient (CLI) | payer MEDICARE, BC, SELFPAY ==
[2018-04-05 09:11] VITALS: BMI 28.8
--- NOTE | 2018-04-19 08:13 | CT_ITS ---
STUDY: CT CHEST WITH CONTRAST REASON FOR EXAM: Female, 72 years old. Wheezing. Sarcoidosis. RADIATION DOSAGE (If Supplied By Facility): CTDIvol = ( 14.28 ) mGy, DLP = ( 590.26 ) mGycm TECHNIQUE: Transaxial imaging was performed following intravenous administration of 100 ml of Isovue 300 contrast material. Individualized dose optimization techniques were used for this CT. COMPARISON: None. FINDINGS: The lungs are normal. There is no demonstrated pleural abnormality. Normal heart and pericardium. There are calcifications of the coronary arteries. Normal mediastinum. Normal hilar regions. Normal enhanced pulmonary arteries. There is atherosclerotic calcification of the aortic arch with tortuosity and elongation of the aortic arch and descending thoracic aorta. Normal osseous structures. There is no demonstrated abnormality of the visualized upper abdomen. CT/Chest WITH Contrast IMPRESSION: No acute chest disease. Electronically Signed: Bebo Lion MD at 22:10 EST , Service support ,
[2018-04-19 08:30] LABS: CREATININE FINGERSTICK 1.2 mg/dL (0.55-1.02)
--- NOTE | 2018-04-19 14:22 | PFT ---
INTRODUCTION: The patient is a 72-year-old female that presents for pulmonary function studies secondary to a diagnosis of sarcoidosis. Respiratory therapy reports good patient effort. Bronchodilators were used during testing. INTERPRETATION: Forced expiration spirometry demonstrates no evidence of a large airways obstructive ventilatory defect. There was no significant response to aerosolized bronchodilators, based upon strict ATS criteria. Spirograms are of good quality and plateau gradually. Body plethysmography was performed and reveals lung volumes to be within normal limits. Diffusing capacity by single breath CO is within normal limits at 81% of predicted. IMPRESSION: Grossly normal pulmonary function studies.
== END ==
PROVIDERS: Family Provider Family Medicine; PCP Family Medicine; Referring Provider Internal Medicine Critical Care Medicine; Visit Provider Internal Medicine Critical Care Medicine
DX: D86.9 Sarcoidosis, unspecified (principal)
CPT/HCPCS: 71260; 94060; 94726; 94729; Q9967

== ENCOUNTER → 2018-04-27 19:59 | Outpatient (CLI) | payer MEDICARE, BC, SELFPAY ==
[2018-04-05 09:11] VITALS: BMI 28.8
== END ==
PROVIDERS: Family Provider Family Medicine; PCP Family Medicine; Referring Provider Internal Medicine Critical Care Medicine; Visit Provider Internal Medicine Critical Care Medicine
DX: G47.33 Obstructive sleep apnea (adult) (pediatric) (principal)
CPT/HCPCS: 95811; 96360; 96361

== ENCOUNTER → 2018-05-25 09:19 | Outpatient (CLI) | payer MEDICARE, BC, SELFPAY ==
[2018-04-05 09:11] VITALS: BMI 28.8
[2018-05-25 09:24] LABS: Lyme Ab Screen Interpretation REF LAB
[2018-05-25 10:19] LABS: Erythrocyte Sedimentation Rate 42 mm/hr (0-30)
[2018-05-25 10:31] LABS: ALB/GLOB Ratio 0.8 RATIO (0.9-2.4); AST(SGOT) 24 U/L (15-37); Alanine Aminotransfer ALT/SGPT 19 U/L (13-56); Albumin, Serum 3.6 g/dL (3.2-5.0); Alkaline Phosphatase 96 U/L (45-117); Anion Gap 6 (5-15); BUN 12 mg/dL (7-18); BUN/Creat Ratio 14.4 RATIO (10-20); CPK Total, Creatine Kinase 39 U/L (26-192); Calcium,Total 8.9 mg/dL (8.5-10.1); Chloride 104 mmol/L (98-107); Creatinine, Serum 0.83 mg/dL (0.55-1.02); EST Glomerular Filtration Rate 72 mL/min (>60); Est Glom Filt Rate - Afr Amer 87 mL/min (>60); Globulin 4.3 g/dL (2.2-4.2); Glucose 87 mg/dL (74-106); Magnesium 2.6 mg/dL (1.6-2.6); Potassium 4.1 mmol/L (3.5-5.1); Protein, Total 7.9 g/dL (6.4-8.2); Sodium Level 138 mmol/L (136-145); Thyroid Stim Hormone (TSH) 0.87 uIU/mL (0.358-3.74)
[2018-05-25 10:41] LABS: Absolute Lymphocyte Count 1.71 X10^3/ul (0.83-4.51); Absolute Neutrophil Count 5.6 X10^3/uL (2.0-7.7); Basophil# 0.03 X10^3/uL; Basophil% 0.4 % (0-1); Eosinophil# 0.25 X10^3/uL; Eosinophils% 3.1 % (0-5); Hematocrit 34.5 % (37-47); Lymphocyte # 1.71 X10^3/ul (4.0); Lymphocyte % 21.2 % (19-41); Mean Corp Hgb Conc 31.9 g/gl (32-36); Mean Corpuscular Volume 84.6 fL (81-99); Mean Platelet Vol. 10.3 fl (6.2-12.0); Monocyte# 0.46 X10^3/uL; Monocyte% 5.7 % (0-10); Neutrophil # 5.59 X10^3/uL (2.7-7.7); Neutrophil % 69.4 % (47-70); Platelet Count 322 K/mm3 (150-450); RBC Distribution Width CV 15.1 % (11.6-14.6); RBC Distribution Width SD 46.6 fl (35.1-43.9); Red Blood Count 4.08 M/mm3 (4.2-5.4); White Blood Count 8.1 K/mm3 (4.4-11.0)
[2018-05-25 10:42] LABS: POSITIVE COUNT NO; POSITIVE DIFFERENTIAL NO; POSITIVE MORPHOLOGY NO
[2018-05-26 12:07] LABS: Anti-Centromere B Ab <0.2 AI (0.0-0.9); Anti-Chromatin <0.2 AI (0.0-0.9); Anti-Jo <0.2 AI (0.0-0.9); Anti-Scleroderma-70 AB <0.2 AI (0.0-0.9); RNP Ab <0.2 AI (0.0-0.9); SJOGREN'S Anti-SS-A test < 0.2 AI (0.0-0.9); SJOGREN'S Anti-SS-B test < 0.2 AI (0.0-0.9); Smith Ab <0.2 AI (0.0-0.9)
[2018-05-26 15:36] LABS: Anti-dsDNA Ab 1 IU/mL (0-9)
[2018-05-27 13:07] LABS: Aldolase 2.4 U/L (3.3-10.3); Lyme Scn Total Ab w/Rflx <0.91 ISR (0.00-0.90)
== END ==
PROVIDERS: Family Provider Family Medicine; PCP Family Medicine; Referring Provider Family Medicine; Visit Provider Family Medicine
DX: K50.90 Crohn's disease, unspecified, without complications (principal); M79.10 Myalgia, unspecified site
CPT/HCPCS: 36415; 80053; 82085; 82550; 83735; 83970; 84443; 85025; 85652; 86140; 86225; 86235; 86618

== ENCOUNTER → 2018-06-01 16:10 | Outpatient (CLI) | payer MEDICARE, BC, SELFPAY ==
[2018-04-05 09:11] VITALS: BMI 28.8
[2018-06-01 17:38] LABS: Erythrocyte Sedimentation Rate 43 mm/hr (0-30)
[2018-06-01 18:06] LABS: CRP < 2.90 mg/L (0.0-3.0)
== END ==
PROVIDERS: Family Provider Family Medicine; PCP Family Medicine; Referring Provider Family Medicine; Visit Provider Family Medicine
DX: M79.10 Myalgia, unspecified site (principal)
CPT/HCPCS: 36415; 85652; 86140

== ENCOUNTER → 2018-06-22 10:35 | Outpatient (CLI) | payer MEDICARE, BC, SELFPAY ==
[2018-04-05 09:11] VITALS: BMI 28.8
[2018-06-22 12:51] LABS: Erythrocyte Sedimentation Rate 21 mm/hr (0-30)
[2018-06-22 13:25] LABS: CRP 8.75 mg/L (0.0-3.0)
== END ==
PROVIDERS: Family Provider Family Medicine; PCP Family Medicine; Referring Provider Family Medicine; Visit Provider Family Medicine
DX: M79.10 Myalgia, unspecified site (principal)
CPT/HCPCS: 36415; 85652; 86140

== ENCOUNTER → 2018-08-29 | Outpatient (CLI) | payer MEDICARE, BC, SELFPAY ==
--- NOTE | 2018-08-29 09:40 | RAD_ITS ---
STUDY: X-RAY - ABDOMEN/PELVIS REASON FOR EXAM: Female, 72 years old. History of Crohn's disease, constipation, no diarrhea TECHNIQUE: 3 views of the abdomen were performed COMPARISON: For March 2017 FINDINGS: Normal visualized lung bases. There is an unremarkable bowel gas pattern. There is no demonstrated free abdominal air. The visualized liver, spleen and kidneys are grossly normal in size and morphology. Normal soft tissue structures. Normal visualized osseous structures. RAD/Abd Inc Decub and/or Erect IMPRESSION: Normal x-ray examination of the abdomen and pelvis. Electronically Signed: Loren Plunkett, at 17:34 EDT Tel , Service support ,
== END | disposition home or self-care (01) ==
LOC: MTRAD 09:38
PROVIDERS: Family Provider Family Medicine; PCP Family Medicine; Referring Provider Family Medicine; Visit Provider Family Medicine
DX: R10.84 Generalized abdominal pain (principal)
CPT/HCPCS: 74019

== ENCOUNTER → 2018-09-06 | Outpatient (CLI) | payer MEDICARE, BC, SELFPAY ==
[2018-09-06 15:41] LABS: Absolute Lymphocyte Count 2.47 X10^3/ul (0.83-4.51); Absolute Neutrophil Count 5.8 X10^3/uL (2.0-7.7); Basophil# 0.02 X10^3/uL; Basophil% 0.2 % (0-1); Eosinophil# 0.22 X10^3/uL; Eosinophils% 2.4 % (0-5); Hematocrit 30.7 % (37-47); Hemoglobin 9.7 g/dl (12.0-15.0); Immature Platelet Fraction 2.1 % (1.0-7.9); Lymphocyte # 2.47 X10^3/ul (4.0); Lymphocyte % 27.4 % (19-41); Mean Corp Hgb Conc 31.6 g/gl (32-36); Mean Corpuscular Hgb 25.6 pg (27.0-32.0); Mean Platelet Vol. 10.3 fl (6.2-12.0); Monocyte# 0.47 X10^3/uL; Monocyte% 5.2 % (0-10); Neutrophil % 64.4 % (47-70); Platelet Count 370 K/mm3 (150-450); RBC Distribution Width CV 14.8 % (11.6-14.6); RBC Distribution Width SD 43.7 fl (35.1-43.9); RET-HE 23.8 pg (30-35); Red Blood Count 3.79 M/mm3 (4.2-5.4); Reticulocyte Count 1.63 % (0.5-1.5)
[2018-09-06 15:54] LABS: POSITIVE COUNT NO; POSITIVE DIFFERENTIAL NO; POSITIVE MORPHOLOGY NO
[2018-09-06 16:17] LABS: Erythrocyte Sedimentation Rate 45 mm/hr (0-30)
[2018-09-06 16:18] LABS: ALB/GLOB Ratio 0.8 RATIO (0.9-2.4); AST(SGOT) 20 U/L (15-37); Alanine Aminotransfer ALT/SGPT 16 U/L (13-56); Albumin, Serum 3.3 g/dL (3.2-5.0); Alkaline Phosphatase 83 U/L (45-117); Anion Gap 11 (5-15); BUN 10 mg/dL (7-18); BUN/Creat Ratio 12.7 RATIO (10-20); Chloride 104 mmol/L (98-107); Creatinine, Serum 0.78 mg/dL (0.55-1.02); EST Glomerular Filtration Rate 77 mL/min (>60); Est Glom Filt Rate - Afr Amer 93 mL/min (>60); Glucose 140 mg/dL (74-106); Iron 29 ug/dL (50-170); Iron Binding Capacity,Total 371 ug/dL (250-450); Potassium 4.2 mmol/L (3.5-5.1); Protein, Total 7.3 g/dL (6.4-8.2); Sodium Level 140 mmol/L (136-145)
== END | disposition home or self-care (01) ==
LOC: MFPLAB 13:34
PROVIDERS: Family Provider Family Medicine; PCP Family Medicine; Referring Provider Family Medicine; Visit Provider Family Medicine
DX: K50.80 Crohn's disease of both small and large intestine without complications (principal)
CPT/HCPCS: 36415; 80053; 83540; 83550; 85025; 85045; 85652; 86140

== ENCOUNTER → 2018-09-09 | Outpatient (CLI) | payer MEDICARE, BC, SELFPAY ==
--- NOTE | 2018-09-09 08:19 | CT_ITS ---
STUDY: CT ABDOMEN AND PELVIS WITHOUT CONTRAST REASON FOR EXAM: Female, 73 years old. History of Crohn's and ulcerative colitis, RADIATION DOSAGE (If Supplied By Facility): CTDIvol = ( 9.74 ) mGy, DLP = ( 513.46 ) mGycm TECHNIQUE: Transaxial images were obtained from the dome of the diaphragm to the symphysis pubis without oral contrast, and without intravenous contrast. Sagittal and coronal images were reconstructed. Individualized dose optimization techniques were used for this CT. COMPARISON: 11 March 2017 FINDINGS: Examination is moderately limited due to lack of IV contrast. Detection of inflammatory and/or acute pathology is limited. Evaluation of the gastrointestinal tract is limited due to lack of cleansing and distention and presence of stool making evaluation of bowel wall and lumen not possible. Some diagnostic information is available. There is severe aortic valve stenosis. There is severe coronary artery disease. Cardiac chambers are normal in size and shape. There is calcific degeneration of the mitral annulus. Pericardium is normal. Lung bases are clear. There is no intra-abdominal free gas. Liver, spleen adrenals pancreas and kidneys are normal. There is cholecystectomy without biliary dilation. There is no intestinal obstruction. There are ill defined infiltrative changes in the right greater than left pericolic peritoneum and mesentery which were present in 2018 but are less extensive. The uterus is surgically removed. Bladder is normal. Limited spine is intact and aligned. Mineralization is heterogeneously decreased. 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 CT/Abdomen/Pelvis without Cont IMPRESSION: 1. Limited examination. 2. Mild pericolonic inflammatory changes, also present in 2018. It is unknown whether these are chronic postinflammatory change or recurrent inflammatory disease. 3. If definitive evaluation of the gastrointestinal tract is desired a dedicated protocol CT or MR enterography can be performed after bowel prep. 4. Extensive cardiac disease. Cardiology referral advised. Electronically Signed: Loren Plunkett, at 17:11 EDT Tel , Service support ,
== END | disposition home or self-care (01) ==
PROVIDERS: Family Provider Family Medicine; PCP Family Medicine; Referring Provider Family Medicine; Visit Provider Family Medicine
DX: K52.9 Noninfective gastroenteritis and colitis, unspecified (principal)
CPT/HCPCS: 74176; 87506

== ENCOUNTER → 2018-11-03 | Outpatient (CLI) | payer MEDICARE, BC, SELFPAY ==
[2018-09-19 08:57] VITALS: BMI 29.0
[2018-11-03 11:24] LABS: Absolute Lymphocyte Count 2.67 X10^3/uL (0.83-4.51); Basophil# 0.03 X10^3/uL; Basophil% 0.4 % (0-1); Eosinophil# 0.27 X10^3/uL; Eosinophils% 3.2 % (0-5); Hematocrit 34.6 % (37-47); Hemoglobin 10.4 g/dL (12.0-15.0); Lymphocyte # 2.67 X10^3/ul (4.0); Lymphocyte % 31.2 % (19-41); Mean Corp Hgb Conc 30.1 g/dL (32-36); Mean Corpuscular Hgb 24.9 pg (27.0-32.0); Mean Corpuscular Volume 82.8 fL (81-99); Mean Platelet Vol. 10.8 fl (6.2-12.0); NRBC Flagged by Analyzer 0 % (0-5); Neutrophil # 4.95 X10^3/uL (2.7-7.7); Neutrophil % 57.7 % (47-70); Platelet Count 291 K/mm3 (150-450); RBC Distribution Width CV 15.6 % (11.6-14.6); Red Blood Count 4.18 M/mm3 (4.2-5.4); White Blood Count 8.6 K/mm3 (4.4-11.0)
[2018-11-03 11:48] LABS: ALB/GLOB Ratio 0.8 RATIO (0.9-2.4); AST(SGOT) 28 U/L (15-37); Alanine Aminotransfer ALT/SGPT 23 U/L (13-56); Albumin, Serum 3.5 g/dL (3.2-5.0); Alkaline Phosphatase 88 U/L (45-117); Anion Gap 6 (5-15); BUN 11 mg/dL (7-18); CRP 4.15 mg/L (0.0-3.0); Calcium,Total 9.1 mg/dL (8.5-10.1); Chloride 105 mmol/L (98-107); Creatinine, Serum 0.79 mg/dL (0.55-1.02); EST Glomerular Filtration Rate 77 mL/min (>60); Est Glom Filt Rate - Afr Amer 93 mL/min (>60); Globulin 4.4 g/dL (2.2-4.2); Glucose 109 mg/dL (74-106); Potassium 4.2 mmol/L (3.5-5.1); Protein, Total 7.9 g/dL (6.4-8.2); Sodium Level 138 mmol/L (136-145)
== END | disposition home or self-care (01) ==
PROVIDERS: Family Provider Family Medicine; PCP Family Medicine
DX: K50.90 Crohn's disease, unspecified, without complications (principal)
CPT/HCPCS: 36415; 80053; 85025; 86140

== ENCOUNTER → 2018-12-16 11:40 | Outpatient (CLI) | payer MEDICARE, BC, SELFPAY ==
[2018-09-19 08:57] VITALS: BMI 29.0
[2018-12-16 15:39] LABS: Absolute Lymphocyte Count 3.34 X10^3/uL (0.83-4.51); Absolute Neutrophil Count 3.9 X10^3/uL (2.0-7.7); Basophil# 0.03 X10^3/uL; Basophil% 0.4 % (0-1); Eosinophils% 2.5 % (0-5); Hematocrit 35.5 % (37-47); Hemoglobin 10.9 g/dL (12.0-15.0); Lymphocyte # 3.34 X10^3/ul (4.0); Lymphocyte % 41.4 % (19-41); Mean Corp Hgb Conc 30.7 g/dL (32-36); Mean Corpuscular Hgb 25.2 pg (27.0-32.0); Mean Corpuscular Volume 82.2 fL (81-99); Mean Platelet Vol. 11.7 fl (6.2-12.0); Monocyte# 0.56 X10^3/uL; Monocyte% 6.9 % (0-10); NRBC Flagged by Analyzer 0 % (0-5); Neutrophil # 3.91 X10^3/uL (2.7-7.7); Neutrophil % 48.6 % (47-70); Platelet Count 251 K/mm3 (150-450); RBC Distribution Width CV 16.3 % (11.6-14.6); RBC Distribution Width SD 49.1 fl (35.1-43.9); Red Blood Count 4.32 M/mm3 (4.2-5.4); White Blood Count 8.1 K/mm3 (4.4-11.0)
== END ==
PROVIDERS: Family Provider Family Medicine; PCP Family Medicine; Referring Provider Family Medicine
DX: K57.30 Diverticulosis of large intestine without perforation or abscess without bleeding (principal); K50.10 Crohn's disease of large intestine without complications
CPT/HCPCS: 36415; 85025

== ENCOUNTER → 2019-02-03 11:02 | Outpatient (CLI) | payer MEDICARE, BC, SELFPAY ==
[2018-12-29 10:30] VITALS: BMI 29.7
[2019-02-03 11:27] LABS: Absolute Lymphocyte Count 3.33 X10^3/uL (0.83-4.51); Absolute Neutrophil Count 4.8 X10^3/uL (2.0-7.7); Basophil# 0.03 X10^3/uL; Basophil% 0.3 % (0-1); Eosinophil# 0.33 X10^3/uL; Eosinophils% 3.7 % (0-5); Hematocrit 35.4 % (37-47); Hemoglobin 11.1 g/dL (12.0-15.0); Lymphocyte # 3.33 X10^3/ul (4.0); Mean Corp Hgb Conc 31.4 g/dL (32-36); Mean Corpuscular Hgb 25.9 pg (27.0-32.0); Mean Corpuscular Volume 82.7 fL (81-99); Mean Platelet Vol. 10.8 fl (6.2-12.0); Monocyte# 0.54 X10^3/uL; NRBC Flagged by Analyzer 0 % (0-5); Neutrophil # 4.75 X10^3/uL (2.7-7.7); Neutrophil % 52.7 % (47-70); Platelet Count 263 K/mm3 (150-450); RBC Distribution Width CV 15.5 % (11.6-14.6); RBC Distribution Width SD 46.8 fl (35.1-43.9); Red Blood Count 4.28 M/mm3 (4.2-5.4)
[2019-02-03 11:55] LABS: CRP 3.89 mg/L (0.0-3.0); Ferritin 8 ng/mL (8-252); Iron 45 ug/dL (50-170); Iron Binding Capacity,Total 467 ug/dL (250-450); PERCENT IRON SATURATION 9.6 % (15.0-55.0)
[2019-02-03 15:17] LABS: Vitamin B12 432 pg/mL (211-911)
== END ==
PROVIDERS: Family Provider Family Medicine; PCP Family Medicine
DX: K50.10 Crohn's disease of large intestine without complications (principal)
CPT/HCPCS: 36415; 82607; 82728; 82746; 83540; 83550; 85025; 86140

== ENCOUNTER → 2019-03-16 08:36 | Outpatient (CLI) | payer MEDICARE, BC, SELFPAY ==
[2018-12-29 10:30] VITALS: BMI 29.7
[2019-03-16 10:02] LABS: Hematocrit 32.6 % (37-47); Hemoglobin 10.1 g/dL (12.0-15.0); Mean Corpuscular Hgb 25.3 pg (27.0-32.0); Mean Corpuscular Volume 81.7 fL (81-99); Mean Platelet Vol. 11.7 fl (6.2-12.0); Platelet Count 222 K/mm3 (150-450); RBC Distribution Width CV 14.8 % (11.6-14.6); RBC Distribution Width SD 44.3 fl (35.1-43.9); Red Blood Count 3.99 M/mm3 (4.2-5.4); White Blood Count 7.2 K/mm3 (4.4-11.0)
[2019-03-16 10:52] LABS: ALB/GLOB Ratio 0.9 RATIO (0.9-2.4); AST(SGOT) 30 U/L (15-37); Alanine Aminotransfer ALT/SGPT 27 U/L (13-56); Albumin, Serum 3.6 g/dL (3.2-5.0); Alkaline Phosphatase 84 U/L (45-117); Anion Gap 7 (5-15); BUN 17 mg/dL (7-18); BUN/Creat Ratio 16.7 RATIO (10-20); CRP < 2.90 mg/L (0.0-3.0); Calcium,Total 9.2 mg/dL (8.5-10.1); Chloride 107 mmol/L (98-107); Creatinine, Serum 1.02 mg/dL (0.55-1.02); EST Glomerular Filtration Rate 57 mL/min (>60); Est Glom Filt Rate - Afr Amer 69 mL/min (>60); Ferritin 4 ng/mL (8-252); Globulin 4.1 g/dL (2.2-4.2); Glucose 142 mg/dL (74-106); Iron 41 ug/dL (50-170); Iron Binding Capacity,Total 512 ug/dL (250-450); Potassium 4.1 mmol/L (3.5-5.1); Protein, Total 7.7 g/dL (6.4-8.2); Sodium Level 138 mmol/L (136-145)
[2019-03-18 20:07] LABS: QNTFERON TB Mitogen Value > 10.00 IU/mL (.); QNTFERON TB Nil Value 0.36 IU/mL (.); QNTFERON TB1+ Ag Value 0.28 IU/mL (.); QNTFERON TB2+ Ag Value 0.32 IU/mL (.)
[2019-03-19 14:08] LABS: QNTIFERON TB Positive Criteria Negative (Negative)
== END ==
PROVIDERS: Family Provider Family Medicine; PCP Family Medicine; Referring Provider Family Medicine
DX: K50.10 Crohn's disease of large intestine without complications (principal)
CPT/HCPCS: 36415; 80053; 82728; 83540; 83550; 85027; 86140; 86480

== ENCOUNTER → 2019-03-22 10:26 | Outpatient (CLI) | payer MEDICARE, BC, SELFPAY ==
[2018-12-29 10:30] VITALS: BMI 29.7
--- NOTE | 2019-03-22 10:31 | RAD_ITS ---
STUDY: X-RAY - CERVICAL SPINE REASON FOR EXAM: Female, 73 years old. Right shoulder pain. TECHNIQUE: 5 view(s) of the cervical spine were obtained. COMPARISON: None FINDINGS: Osteopenia. Normal anterior atlantoaxial articulation. Normal odontoid process. Normal cervical lordosis. Normal vertebral bodies and endplates. Intervertebral disc space narrowing at C3-4, C5-6 and C6-7 with osteophyte formation most marked at C5-6. Anterior bony neural foraminal department at C3-4, C5-6 and C6-7 bilaterally. Diffuse uncovertebral and facet sclerosis. The soft tissue structures are unremarkable. RAD/Cerv Spine 4 or 5 Views IMPRESSION: Osteopenia with cervical spondylosis as described. Electronically Signed: Nicholas Hogan MD at 17:46 EST , Service support ,
--- NOTE | 2019-03-22 10:31 | RAD_ITS ---
STUDY: X-RAY - RIGHT SHOULDER REASON FOR EXAM: Female, 73 years old. Right shoulder pain. No injury. TECHNIQUE: 2 view(s) of the shoulder on 4 images. COMPARISON: None. FINDINGS: Osteopenia. Mild arthrosis of the glenohumeral joint. Mild arthrosis of the acromioclavicular joint. Normal acromion. Sclerosis and cystic change of the greater tuberosity of the humeral head. The soft tissue structures are unremarkable. Normal visualized pulmonary apex. RAD/Shoulder min 2 Views IMPRESSION: Osteopenia with osteoarthritic changes as described. No acute finding. Electronically Signed: Nicholas Hogan MD at 17:49 EST , Service support ,
== END ==
PROVIDERS: Family Provider Family Medicine; PCP Family Medicine; Referring Provider Family Medicine; Visit Provider Family Medicine
DX: M79.601 Pain in right arm (principal)
CPT/HCPCS: 72050; 73030

== ENCOUNTER → 2019-03-28 12:20 | Outpatient (CLI) | payer MEDICARE, BC, SELFPAY ==
[2018-12-29 10:30] VITALS: BMI 29.7
[2019-03-28 12:27] VITALS: BP 147/65; PULSE 73; RESP 18; TEMP 36.2; BMI 28.3
[2019-03-28 13:21] VITALS: BP 126/60; RESP 18; TEMP 36.5
== END ==
PROVIDERS: Family Provider Family Medicine; PCP Family Medicine
DX: K90.9 Intestinal malabsorption, unspecified (principal); D50.0 Iron deficiency anemia secondary to blood loss (chronic); K50.10 Crohn's disease of large intestine without complications; M79.601 Pain in right arm
CPT/HCPCS: 96365; 97161; J1756; A4216

== ENCOUNTER → 2019-03-31 10:32 | Outpatient (CLI) | payer MEDICARE, BC, SELFPAY ==
[2018-12-29 10:30] VITALS: BMI 29.7
[2019-03-28 12:27] VITALS: BMI 28.3
--- NOTE | 2019-03-31 10:55 | BI_ITS ---
MAMMOGRAPHY - BILATERAL SCREENING REASON FOR EXAM: Female, 73 years old. Routine annual screening examination. PERTINENT HISTORY: Non-contributory. TECHNIQUE: Digital bilateral breast ladonna (3D mammographic acquisition) in the CC and MLO projections. 2-D mediolateral oblique (MLO) and craniocaudad (CC) views of both breasts were obtained. CAD: Full Field Digital Mammography with Computer Added Detection was performed. COMPARISON: Comparison is made with prior examination dated September 26, 2018 and October 15, 2016. FINDINGS: Breast Composition: The breasts are heterogeneously dense, which may obscure small masses. There are no dominant masses or suspicious calcifications. Stable benign appearing bilateral axillary lymph nodes. No other significant abnormalities are identified. There has been no significant change since the prior study. BI/SCREEN MAMM (CAD) W/LADONNA BILAT IMPRESSION: Stable bilateral screening mammogram. Yearly follow-up mammogram recommended. (A) ASSESSMENT CATEGORY: BIRADS Category 2: Benign. A letter regarding these results will be sent to the patient by the facility within 30 days. Approximately 10% of breast cancers are not detected by mammography. A normal mammogram should not delay biopsy of a clinically suspicious abnormality. [id number] Electronically Signed: Rohit Bryant, at 12:23 EST , Service support ,
== END ==
PROVIDERS: Family Provider Family Medicine; PCP Family Medicine; Referring Provider Family Medicine; Visit Provider Family Medicine
DX: Z12.31 Encounter for screening mammogram for malignant neoplasm of breast (principal)
CPT/HCPCS: 77063; 77067

== ENCOUNTER 2019-04-03 09:30 | Outpatient (RCR) | payer MEDICARE, BC, SELFPAY ==
[2018-12-29 10:30] VITALS: BMI 29.7
--- NOTE | 2019-04-03 12:57 | HP.PTEVAL_ITS ---
Patient's Visit Information ISABELLA CHAPMAN is a 73 year old F referred to Physical Therapy by Star Ta MD with a diagnosis of R UE pain, suspected DDD of cervical spine. Date of Evaluation: 03/28/19 Physical Therapist: Ramo Leon DPT - Visit Plan Frequency: 1-2x /Week Duration: 4-6 Weeks Plan: Start with cervical ROM, postural strengthening. May use modalities as needed. - Subjective Findings: Pt. is here today for her initial evaluation with diagnosis of R UE pain, suspected DDD. Pt. reports having increased R arm pain, deltoid region. Pt. reports some spasming and pain, no N/T in either UE. Pt. reports no neck pain. Pt. is also dealing with Crohn's disease and low iron levels. Pt. is to be getting infusion next week. Pt. has not had PT for this region previously. Pt. reports having no mech of injury as well. Pt. has intermittent pain, without reason. Increased pain: lifting over head, lifting, reaching, ADLs. Pt. would benefit from PT to increase ROM, decrease pain and progress strength. Pt. is hopeful to reduce symptoms in order to get back to all recreational activities without limitations. - Pain R deltoid region Pain Intensity (Out of 10): 5 Pain Intensity Range: 3, 8 - Objective POSTURE: Pt. has FH posture, increased thoracic kyphosis. Pt. is able to improve, but not fully correct. PALPATION: pt. had tenderness in UT and deltoid regon, mostly in UT though. No cervical spine pain with palpation. NEURO: normal with sensation of BUE and normal DTR of bilateral UEs. ROM: Cervical spine: flexion nil loss NE, exten mod loss mild increase NW, roation min loss NE bilat, SB min loss NE bilat. R shoulder- flexon 175deg NE, abd 160deg increase NW, functional ER C1 increase NW, functional IR L5 increase NW. MMT: Pt. has 4/5 strength throughout BUEs without increase in symptoms. - Special Tests C/S Radiculapathy - Left Upper limb tension test: Negative C/S Radiculapathy - Right Upper limb tension test: Negative C/S Radiculapathy - Left Spurlings: Negative C/S Radiculapathy - Right Spurlings: Negative C/S Radiculapathy - Left Cervical distraction: Negative C/S Radiculapathy - Right Cervical distraction: Negative C/S Radiculapathy - Left Relief test: Negative C/S Radiculapathy - Right Relief test: Negative C/S Radiculapathy - Valsalva: Negative Cervical Sitting: Protrusion - Mechanical Response: No effect Cervical Sitting: Protrusion - Symptoms During Testing: Increases Cervical Sitting: Protrusion - Symptoms After Testing: No worse Cervical Sitting: Retraction - Mechanical Response: No effect Cervical Sitting: Retraction - Symptoms During Testing: Increases Cervical Sitting: Retraction - Symptoms After Testing: No worse Cervical Lying: Retraction - Mechanical Response: No effect Cervical Lying: Retraction - Symptoms During Testing: Increases Cervical Lying: Retraction - Symptoms After Testing: No worse Cervical Lying: Extension - Mechanical Response: No effect Cervical Lying: Extension - Symptoms During Testing: Increases Cervical Lying: Extension - Symptoms After Testing: No worse R Shoulder Drop Sign - IS Test: Negative R Shoulder Empty Can - SS: Negative R Shoulder Belly Press - SupScap: Negative R Shoulder Neer - Impingement: Negative R Shoulder Jones Jeremy - Impingement: Negative R Shoulder Biceps Load Test - Labrum: Negative R Shoulder Apprehension Test - Anterior Instability: Negative R Shoulder Speeds Test - Labrum/Biceps: Negative - Goals Goal 1:: LTG: Pt. to be I with HEP. Goal Time Frame: 4-6 Weeks Goal 2:: STG: Pt. to have decreased pain with 0-2/10 pain in R UE at rest. Goal Time Frame: 2-4 Weeks Goal 3:: LTG: Pt. to have full R shoulder ROM without increase in symptoms. Goal Time Frame: 4-6 Weeks Goal 4:: STG: Pt. to have increased cervical ROM by 25% in all directions. Goal Time Frame: 2-4 Weeks Goal 5:: STG: Pt. to sleep throughout the night without increase in symptoms. Goal Time Frame: 2-4 Weeks Goal 6:: LTG: Pt. to complete all ADLs and houshold work without increase in symptoms. Goal Time Frame: 4-6 Weeks - Rehabilitation Potential Physical Therapy Diagnosis: Pt. has increaed pain in R UE. Pt. reprots increased pain with any lifting. Pt. has poor posture of her cervical spine and shoulders, unable to fully improve. Pt. had increasd symptoms with cervical extension and retraction as well. No radicular symptoms provoked with cervical testing this date. Pt. would benefit from PT to incerase cervical ROM, progress UE ROM and decrease shoulder pain. Rehabilitation Potential: Good - Anticipated Interventions Patient/Client Instruction: Educate patient on: Condition, Plan of Care, Risk Factors, Benefits of Fitness Program For the Purpose of:: To improve decision making, To facilitate caregiver knowledge, To improve self management, To prevent re-injury, To improve ability to perform tasks related to life management, To improve tolerance to ADL's Therapeutic Exercise to Include: Strength training, Power training, Endurance training, Postural training, Flexibilty training, Passive ROM, Active ROM, Avery Exercises, Scapular Strength/Stabilization For the Purpose of:: To decrease pain, To increase ROM, To improve nutrient delivery to tissue, To increase oxygenation perfusion, To improve muscle performance and motor function, To improve ability to perform ADL's, To increase tolerance to activity/condition/position, To improve health of tissue, To decrease soft tissue restriction, To increase flexibility/ROM Manual Therapy Techniques to Include: Mobilization, Passive ROM, Soft tissue mobilization For the Purpose of:: To decrease pain, To decrease swelling/inflammation, To increase ROM, To improve nutrient delivery to tissue Cryotherapy (ice pack, ice massage): Yes Thermo therapy (hot pack): Yes Ultrasound (thermal/non thermal): Yes For the Purpose of:: To decrease pain, To decrease swelling/inflammation, To increase ROM Thank you for the opportunity to evaluate your patient. For Medicare and Medicare HMO plans, please review the plan of care and approve it. It will need to be FAXED BACK to us at [phone] for Medicare purposes. For Medicare only, by signing this I certify the plan of care. Please let me know if there are questions or concerns regarding this plan of care. Physician Signature: ___Date:
--- NOTE | 2019-09-05 12:46 | HP.PT.NRP ---
ISABELLA CHAPMAN was seen in my office for initial evaluation on 03/28/19. The following Plan of Care was established for this patient: Initial Frequency: 1-2x /Week Initial Duration: 4-6 Weeks Patient/Client Instruction: Educate patient on: Condition, Plan of Care, Risk Factors, Benefits of Fitness Program For the Purpose of:: To improve decision making, To facilitate caregiver knowledge, To improve self management, To prevent re-injury, To improve ability to perform tasks related to life management, To improve tolerance to ADL's Therapeutic Exercise to Include: Strength training, Power training, Endurance training, Postural training, Flexibilty training, Passive ROM, Active ROM, Avery Exercises, Scapular Strength/Stabilization For the Purpose of:: To decrease pain, To increase ROM, To improve nutrient delivery to tissue, To increase oxygenation perfusion, To improve muscle performance and motor function, To improve ability to perform ADL's, To increase tolerance to activity/condition/position, To improve health of tissue, To decrease soft tissue restriction, To increase flexibility/ROM Manual Therapy Techniques to Include: Mobilization, Passive ROM, Soft tissue mobilization For the Purpose of:: To decrease pain, To decrease swelling/inflammation, To increase ROM, To improve nutrient delivery to tissue Cryotherapy (ice pack, ice massage): Yes Thermo therapy (hot pack): Yes Ultrasound (thermal/non thermal): Yes For the Purpose of:: To decrease pain, To decrease swelling/inflammation, To increase ROM This patient was last seen in our office 04/03/19. Pertinent comments regarding their Physical therapy will appear below: Pt. was seen in PT. At her last visit she was no longer having any symptoms. Pt. was to follow up with PT if needed. Pt. has not been seen in several months and will be DC from PT at this point intime. At this point I will be discontinuing this patient from physical therapy. I would be happy to see this patient again in the future if found appropriate by the physician. Thank you! Ramo Leon DPT
== END 2019-04-03 19:00 ==
LOC: PT 09:30
PROVIDERS: Family Provider Family Medicine; PCP Family Medicine; Referring Provider Family Medicine; Visit Provider Family Medicine
DX: M79.601 Pain in right arm (principal)
CPT/HCPCS: 97110; 97161

== ENCOUNTER → 2019-04-04 08:52 | Outpatient (CLI) | payer MEDICARE, BC, SELFPAY ==
[2018-12-29 10:30] VITALS: BMI 29.7
[2019-03-28 12:27] VITALS: BMI 28.3
[2019-04-04 09:12] VITALS: BP 123/55; PULSE 68; RESP 16; TEMP 36.6; O2SAT 99; BMI 29.0
[2019-04-04 10:16] VITALS: BP 122/54; PULSE 68; RESP 18; TEMP 36.4; O2SAT 93
== END ==
PROVIDERS: Family Provider Family Medicine; PCP Family Medicine
DX: K90.9 Intestinal malabsorption, unspecified (principal); D50.0 Iron deficiency anemia secondary to blood loss (chronic); K50.10 Crohn's disease of large intestine without complications
CPT/HCPCS: 96365; J1756; J7050; A4216

== ENCOUNTER → 2019-04-05 11:54 | Outpatient (CLI) | payer MEDICARE, BC, SELFPAY ==
[2019-03-28 12:27] VITALS: BMI 28.3
[2019-04-04 09:12] VITALS: BMI 29.0
[2019-04-05 12:00] VITALS: BP 140/72; PULSE 85; RESP 18; TEMP 36.6; O2SAT 100; BMI 29.0
[2019-04-05 13:11] VITALS: BP 123/52; PULSE 84; RESP 18; TEMP 36.2; O2SAT 93
== END ==
LOC: MEDOUTP 11:54
PROVIDERS: PCP Family Medicine
DX: K50.10 Crohn's disease of large intestine without complications (principal)
CPT/HCPCS: 96413; J7050; A4216; J3380

== ENCOUNTER → 2019-04-11 12:39 | Outpatient (CLI) | payer MEDICARE, BC, SELFPAY ==
[2019-03-28 12:27] VITALS: BMI 28.3
[2019-04-05 12:00] VITALS: BMI 29.0
[2019-04-11 12:56] VITALS: BP 139/51; PULSE 80; RESP 16; TEMP 36.6; O2SAT 99; BMI 29.0
[2019-04-11 14:02] VITALS: BP 120/43; PULSE 75; RESP 16
== END ==
PROVIDERS: PCP Family Medicine
DX: K90.9 Intestinal malabsorption, unspecified (principal); D50.0 Iron deficiency anemia secondary to blood loss (chronic); K50.10 Crohn's disease of large intestine without complications
CPT/HCPCS: 96365; J1756; J7050; A4216

== ENCOUNTER → 2019-04-18 13:17 | Outpatient (CLI) | payer MEDICARE, BC, SELFPAY ==
[2019-03-28 12:27] VITALS: BMI 28.3
[2019-04-11 12:56] VITALS: BMI 29.0
[2019-04-18 13:38] VITALS: BP 121/53; PULSE 82; RESP 16; TEMP 37; O2SAT 99; BMI 29.5
[2019-04-18 14:30] VITALS: BP 130/54; PULSE 82; RESP 16; TEMP 37; O2SAT 99
== END ==
PROVIDERS: PCP Family Medicine
DX: K90.9 Intestinal malabsorption, unspecified (principal); D50.0 Iron deficiency anemia secondary to blood loss (chronic); K50.10 Crohn's disease of large intestine without complications
CPT/HCPCS: 96365; J1756; J7050; A4216

== ENCOUNTER → 2019-04-19 11:45 | Outpatient (CLI) | payer MEDICARE, BC, SELFPAY ==
[2019-04-05 12:00] VITALS: BMI 29.0
[2019-04-18 13:38] VITALS: BMI 29.5
[2019-04-19 11:51] VITALS: BP 136/51; PULSE 76; RESP 18; TEMP 36.7; O2SAT 98; BMI 29.5
[2019-04-19 13:06] VITALS: BP 113/45; PULSE 74; RESP 16
== END ==
LOC: MEDOUTP 11:47
PROVIDERS: PCP Family Medicine
DX: K50.10 Crohn's disease of large intestine without complications (principal)
CPT/HCPCS: 96413; J7050; A4216; J3380

== ENCOUNTER → 2019-04-25 12:18 | Outpatient (CLI) | payer MEDICARE, BC, SELFPAY ==
[2019-03-28 12:27] VITALS: BMI 28.3
[2019-04-19 11:51] VITALS: BMI 29.5
[2019-04-25 12:39] VITALS: BP 134/63; PULSE 73; RESP 18; TEMP 36.2; O2SAT 99; BMI 29.5
== END ==
PROVIDERS: PCP Family Medicine
DX: K90.9 Intestinal malabsorption, unspecified (principal); K50.10 Crohn's disease of large intestine without complications; D50.0 Iron deficiency anemia secondary to blood loss (chronic)
CPT/HCPCS: 96365; J1756; J7050; A4216

== ENCOUNTER → 2019-05-16 10:57 | Outpatient (CLI) | payer MEDICARE, BC, SELFPAY ==
[2019-04-25 12:39] VITALS: BMI 29.5
[2019-05-16 12:24] LABS: Hemoglobin 11.4 g/dL (12.0-15.0); Mean Corp Hgb Conc 30.8 g/dL (32-36); Mean Corpuscular Hgb 26.7 pg (27.0-32.0); Mean Corpuscular Volume 86.7 fL (81-99); Mean Platelet Vol. 11.2 fl (6.2-12.0); Platelet Count 232 K/mm3 (150-450); RBC Distribution Width CV 17.5 % (11.6-14.6); RBC Distribution Width SD 55.9 fl (35.1-43.9); Red Blood Count 4.27 M/mm3 (4.2-5.4); White Blood Count 7.1 K/mm3 (4.4-11.0)
[2019-05-16 12:54] LABS: AST(SGOT) 27 U/L (15-37); Alanine Aminotransfer ALT/SGPT 30 U/L (13-56); Albumin, Serum 3.8 g/dL (3.2-5.0); Alkaline Phosphatase 88 U/L (45-117); Anion Gap 6 (5-15); BUN 14 mg/dL (7-18); BUN/Creat Ratio 16.8 RATIO (10-20); CRP < 2.90 mg/L (0.0-3.0); Chloride 106 mmol/L (98-107); Creatinine, Serum 0.83 mg/dL (0.55-1.02); EST Glomerular Filtration Rate 72 mL/min (>60); Est Glom Filt Rate - Afr Amer 87 mL/min (>60); Ferritin 141 ng/mL (8-252); Globulin 3.7 g/dL (2.2-4.2); Glucose 120 mg/dL (74-106); Iron 68 ug/dL (50-170); Iron Binding Capacity,Total 358 ug/dL (250-450); Potassium 4.3 mmol/L (3.5-5.1); Protein, Total 7.5 g/dL (6.4-8.2); Sodium Level 138 mmol/L (136-145)
== END ==
PROVIDERS: PCP Family Medicine; Referring Provider Family Medicine
DX: K50.10 Crohn's disease of large intestine without complications (principal); K57.30 Diverticulosis of large intestine without perforation or abscess without bleeding; D50.9 Iron deficiency anemia, unspecified
CPT/HCPCS: 36415; 80053; 82728; 83540; 83550; 85027; 86140

== ENCOUNTER → 2019-05-17 11:49 | Outpatient (CLI) | payer MEDICARE, BC, SELFPAY ==
[2019-04-05 12:00] VITALS: BMI 29.0
[2019-04-25 12:39] VITALS: BMI 29.5
[2019-05-17 12:07] VITALS: BP 126/55; PULSE 72; RESP 16; TEMP 36.4; O2SAT 97
[2019-05-17 13:16] VITALS: BP 122/55; PULSE 74; RESP 16
== END ==
LOC: MEDOUTP 11:49
PROVIDERS: PCP Family Medicine
DX: K50.10 Crohn's disease of large intestine without complications (principal)
CPT/HCPCS: 96413; J7050; A4216; J3380

== ENCOUNTER → 2019-07-12 11:55 | Outpatient (CLI) | payer MEDICARE, BC, SELFPAY ==
[2019-04-25 12:39] VITALS: BMI 29.5
[2019-07-12 12:13] VITALS: BP 162/66; PULSE 79; RESP 18; TEMP 37.1; O2SAT 99; BMI 30.1
[2019-07-12] MEDS: 0.9% NaCl Peripheral Flush Adult/Peds IV (12:13)
[2019-07-12] MEDS: 0.9% NaCl IVPB Med Flush (250 mL) 15 ML IV (12:31)
[2019-07-12 13:19] VITALS: BP 118/49; PULSE 72; RESP 16; TEMP 36.1; O2SAT 97
== END ==
PROVIDERS: PCP Family Medicine
DX: K50.10 Crohn's disease of large intestine without complications (principal); N39.0 Urinary tract infection, site not specified
CPT/HCPCS: 87077; 87086; 87088; 87186; 96413; J7050; A4216; J3380

== ENCOUNTER → 2019-07-17 13:10 | Outpatient (CLI) | payer MEDICARE, BC, SELFPAY ==
[2019-07-12 12:13] VITALS: BMI 30.1
[2019-07-17 14:52] LABS: Absolute Lymphocyte Count 2.05 X10^3/uL (0.83-4.51); Absolute Neutrophil Count 6.4 X10^3/uL (2.0-7.7); Basophil# 0.05 X10^3/uL; Basophil% 0.5 % (0-1); Eosinophil# 0.37 X10^3/uL; Eosinophils% 3.9 % (0-5); Hematocrit 38.4 % (37-47); Hemoglobin 12.3 g/dL (12.0-15.0); Lymphocyte # 2.05 X10^3/ul (4.0); Lymphocyte % 21.6 % (19-41); Mean Corpuscular Hgb 28.5 pg (27.0-32.0); Mean Corpuscular Volume 88.9 fL (81-99); Mean Platelet Vol. 10.5 fl (6.2-12.0); Monocyte# 0.58 X10^3/uL; Monocyte% 6.1 % (0-10); NRBC Flagged by Analyzer 0 % (0-5); Neutrophil # 6.41 X10^3/uL (2.7-7.7); Neutrophil % 67.6 % (47-70); Platelet Count 253 K/mm3 (150-450); RBC Distribution Width CV 13.4 % (11.6-14.6); RBC Distribution Width SD 43.8 fl (35.1-43.9); Red Blood Count 4.32 M/mm3 (4.2-5.4); White Blood Count 9.5 K/mm3 (4.4-11.0)
[2019-07-17 15:03] LABS: ALB/GLOB Ratio 0.9 RATIO (0.9-2.4); AST(SGOT) 27 U/L (15-37); Alanine Aminotransfer ALT/SGPT 27 U/L (13-56); Albumin, Serum 3.7 g/dL (3.2-5.0); Alkaline Phosphatase 90 U/L (45-117); Anion Gap 5 (5-15); BUN 12 mg/dL (7-18); BUN/Creat Ratio 13.1 RATIO (10-20); CRP 4.34 mg/L (0.0-3.0); Calcium,Total 9.1 mg/dL (8.5-10.1); Chloride 103 mmol/L (98-107); Creatinine, Serum 0.92 mg/dL (0.55-1.02); EST Glomerular Filtration Rate 64 mL/min (>60); Est Glom Filt Rate - Afr Amer 78 mL/min (>60); Globulin 4.1 g/dL (2.2-4.2); Glucose 148 mg/dL (74-106); Potassium 4.1 mmol/L (3.5-5.1); Protein, Total 7.8 g/dL (6.4-8.2); Sodium Level 135 mmol/L (136-145)
== END ==
PROVIDERS: PCP Family Medicine
DX: D50.9 Iron deficiency anemia, unspecified (principal); K50.10 Crohn's disease of large intestine without complications
CPT/HCPCS: 36415; 80053; 85025; 86140

== ENCOUNTER → 2019-08-30 10:33 | Outpatient (CLI) | payer MEDICARE, BC, SELFPAY ==
[2019-07-12 12:13] VITALS: BMI 30.1
== END ==
PROVIDERS: PCP Family Medicine; Visit Provider Family Medicine
DX: E03.9 Hypothyroidism, unspecified (principal)
CPT/HCPCS: 36415; 84443

== ENCOUNTER → 2019-09-06 11:30 | Outpatient (CLI) | payer MEDICARE, BC, SELFPAY ==
[2019-07-12 12:13] VITALS: BMI 30.1
[2019-09-06 11:41] VITALS: BP 143/54; PULSE 70; RESP 16; TEMP 37.1; O2SAT 97; BMI 29.7
[2019-09-06] MEDS: 0.9% NaCl Peripheral Flush Adult/Peds IV (11:51)
[2019-09-06] MEDS: 0.9% NaCl IVPB Med Flush (250 mL) 15 ML IV (11:51)
[2019-09-06 12:43] VITALS: BP 128/50; PULSE 70
== END ==
PROVIDERS: PCP Family Medicine
DX: D50.0 Iron deficiency anemia secondary to blood loss (chronic) (principal); K50.10 Crohn's disease of large intestine without complications; K90.9 Intestinal malabsorption, unspecified
CPT/HCPCS: 96365; 96413; J7050; A4216; J3380

== ENCOUNTER → 2019-09-20 10:54 | Outpatient (CLI) | payer MEDICARE, BC, SELFPAY ==
[2019-09-06 11:41] VITALS: BMI 29.7
[2019-09-20 12:51] LABS: Absolute Lymphocyte Count 2.31 X10^3/uL (0.83-4.51); Absolute Neutrophil Count 5.5 X10^3/uL (2.0-7.7); Basophil# 0.04 X10^3/uL; Basophil% 0.5 % (0-1); Eosinophil# 0.23 X10^3/uL; Eosinophils% 2.7 % (0-5); Hematocrit 37.2 % (37-47); Hemoglobin 11.9 g/dL (12.0-15.0); Lymphocyte # 2.31 X10^3/ul (4.0); Lymphocyte % 26.6 % (19-41); Mean Corpuscular Volume 90.7 fL (81-99); Mean Platelet Vol. 11.1 fl (6.2-12.0); Monocyte# 0.56 X10^3/uL; Monocyte% 6.5 % (0-10); NRBC Flagged by Analyzer 0 % (0-5); Neutrophil # 5.51 X10^3/uL (2.7-7.7); Neutrophil % 63.5 % (47-70); Platelet Count 260 K/mm3 (150-450); RBC Distribution Width CV 13.5 % (11.6-14.6); RBC Distribution Width SD 44.8 fl (35.1-43.9); White Blood Count 8.7 K/mm3 (4.4-11.0)
[2019-09-20 13:49] LABS: ALB/GLOB Ratio 0.9 RATIO (0.9-2.4); AST(SGOT) 29 U/L (15-37); Alanine Aminotransfer ALT/SGPT 32 U/L (13-56); Albumin, Serum 3.7 g/dL (3.2-5.0); Alkaline Phosphatase 101 U/L (45-117); Anion Gap 7 (5-15); BUN 16 mg/dL (7-18); BUN/Creat Ratio 18.7 RATIO (10-20); CRP 3.82 mg/L (0.0-3.0); Calcium,Total 8.7 mg/dL (8.5-10.1); Chloride 103 mmol/L (98-107); Creatinine, Serum 0.86 mg/dL (0.55-1.02); EST Glomerular Filtration Rate 69 mL/min (>60); Est Glom Filt Rate - Afr Amer 84 mL/min (>60); Globulin 4.2 g/dL (2.2-4.2); Glucose 131 mg/dL (74-106); Potassium 4.4 mmol/L (3.5-5.1); Protein, Total 7.9 g/dL (6.4-8.2); Sodium Level 135 mmol/L (136-145)
== END ==
PROVIDERS: PCP Family Medicine
DX: D50.9 Iron deficiency anemia, unspecified (principal); D50.0 Iron deficiency anemia secondary to blood loss (chronic); K90.9 Intestinal malabsorption, unspecified; K50.10 Crohn's disease of large intestine without complications
CPT/HCPCS: 36415; 80053; 85025; 86140

== ENCOUNTER → 2019-09-27 08:05 | Outpatient (CLI) | payer MEDICARE, BC, SELFPAY ==
[2019-09-06 11:41] VITALS: BMI 29.7
--- NOTE | 2019-09-27 08:19 | MRI_ITS ---
STUDY: MRI ABDOMEN WITH AND WITHOUT CONTRAST REASON FOR EXAM: Female, 74 years old. Crohn''s, abdominal bloating, MRI enterography. TECHNIQUE: Multisequence multiplanar MRI was performed of the abdomen and pelvis, enterography technique, without and with IV contrast. Imaging was performed in the prone position. Glucagon was administered during the examination. The quantity and type of IV contrast administered was not recorded on PACS. Please see permanent medical record/technologist notes. COMPARISON: CT abdomen and pelvis 09/09/2018, 03/11/2017, 02/22/2013 FINDINGS: On the CT scan of 09/09/2017 there was circumferential thickening of the wall of the descending and proximal sigmoid colon with hazy inflammatory induration in the adjacent fat, consistent with colitis. There is no apparent inflammation of the terminal ileum or duodenum. On the CT scan of 03/11/2017, there was circumferential thickening in the wall of the hepatic flexure with hyperemia and hazy induration in the adjacent fat, consistent with colitis, no apparent inflammation of the terminal ileum of the terminal ileum was mildly thick-walled. No apparent inflammation of the duodenum. No apparent inflammation the distal large bowel. On the CT scan of 02/22/2013 there was mild thickening of the wall of the ascending colon and hepatic flexure with slight hazy induration in the adjacent fat and mild thickening of the descending colon with mild hazy induration in the adjacent fat, features of mild colitis. There was no apparent inflammation of the terminal ileum or duodenum. MR ENTEROGRAPHY: Inferior chest including lung bases, distal esophagus and cardiac base exhibits no acute other malady. There is no cardiomegaly or pericardial effusion. Body wall soft tissues exhibit no acute process. Osseous structures exhibit no acute process. There is evidence of mild low lumbar spondylosis. Mild hepatomegaly craniocaudal right liver 18.5 cm. Gallbladder absent. Nondilated intrahepatic and extrahepatic biliary tree. Mild pancreatic atrophy. Normal spleen. Normal adrenal glands. Normal kidneys, collecting systems, ureters, urinary bladder. Uterus absent. No adnexal mass or cyst. The ovaries are not seen, probably surgically absent. Pelvic floor and sidewalls and retroperitoneum free of mass or lymphadenopathy. Normal vasculature. No mesenteric lymphadenopathy. Stomach: Normal. Duodenum: Normal. Jejunum: Normal. Ileum: Normal. There is no apparent wall thickening or inflammation of the terminal ileum. Large bowel: The ascending, transverse, descending, sigmoid colon, and rectum exhibit no acute inflammatory features. Moderate rectal stool ball, otherwise no significant stool burden of the large bowel. At the junction of the distal descending and proximal sigmoid colon there is a short segment of bowel narrowing present on all sequences over a length of about 2.8 cm. There is a short segment within the proximal to mid sigmoid colon of bowel narrowing measuring about 1.9 cm in length. Each of these segments relaxes after glucagon administration, no evidence of fixed stricture. There are no apparent suspicious masslike features of the large bowel. MRI/MRI Abd WITH and W/O Contrast IMPRESSION: 1. There is no evidence of acute small or large bowel inflammation on today''s examination. 2. There was evidence of colitis on each of the patient''s prior CT scans as far back as 2012. On each of those prior studies there was only colitis without duodenitis or ileitis. Neither the duodenum nor the terminal ileum exhibited inflammatory features. 3. Borderline/mild hepatomegaly. 4. No acute abdominopelvic process is otherwise evident. Electronically Signed: Andrea Mojica MD at 16:42 EDT Tel , Service support ,
[2019-09-27 08:47] VITALS: BP 171/61; PULSE 78; RESP 18; TEMP 36.8; O2SAT 95; BMI 30.7
[2019-09-27] MEDS: Glucagon 1 MG/ML Syringe IV (09:41)
[2019-09-27] MEDS: 0.9% Saline Lock 10 ML Syringe IV (09:41)
[2019-09-27 10:30] VITALS: BP 153/57; PULSE 82; RESP 18; TEMP 36.9
[2019-09-28 07:21] LABS: Bedside Glucose 116 mg/dL (70-110)
== END ==
PROVIDERS: PCP Family Medicine
DX: D50.0 Iron deficiency anemia secondary to blood loss (chronic) (principal); K90.9 Intestinal malabsorption, unspecified; K50.10 Crohn's disease of large intestine without complications; D50.9 Iron deficiency anemia, unspecified; Z79.899 Other long term (current) drug therapy
CPT/HCPCS: 74183; 82962; 96374; A9575; J1610

== ENCOUNTER → 2019-10-06 08:10 | Outpatient (CLI) | payer MEDICARE, BC, SELFPAY ==
[2019-09-27 08:47] VITALS: BMI 30.7
--- NOTE | 2019-10-06 08:40 | ART_ITS ---
Reason For Study: Cold skin Procedure A bilateral lower extremity continuous wave Doppler with analog waveform analysis and ankle brachial indexes. Left Segmental Pressures Left brachial= 126mmHg. Left posterior tibial artery = >254mmHg. Left dorsalis pedis artery = >254mmHg. Left digit = 112 mmHg. The left dorsalis pedis waveforms are triphasic. The left posterior tibial artery waveforms are triphasic. Right Segmental Pressures Right brachial= 132mmHg. Right posterior tibial artery = 160mmHg. Right dorsalis pedis artery = >254mmHg. The right dorsalis pedis waveforms are triphasic. The right posterior tibial artery waveforms are triphasic. Indices The right ankle brachial index by the dorsalis pedis is NC. The right ankle brachial index by the posterior tibial artery is 1.21. The right digital-brachial index is 0.54. The left ankle brachial index by the dorsalis pedis is NC. The left ankle brachial index by the posterior tibial artery is NC. The left digital-brachial index is 0.85. Interpretation Summary Triphasic Doppler waveforms are noted at ankle level bilaterally. The resting right ankle-brachial index is normal. The resting [id number] index could not be determined due to the non- compressibility of the vasculature. The right digital-brachial index is mildly diminished. The left digital-brachial index is normal. There is evidence of arterial calcification at ankle level on the left. Arterial flow appears normal at ankle level bilaterally, and at digital level on the left. There is evidence of mild, distal, small-vessel arterial occlusive disease at digital level on the right. Ordering Physician: Cathie Brenner Referring Physician: Star Ta MD Performed By: Daphne Freitas RVT and Student
[2019-10-06 09:17] LABS: Cholesterol 180 mg/dL (200); High Density Lipoprotein 36 mg/dL; Triglycerides 266 mg/dL; Very Low Density Lipoprotein 53 mg/dL (5-40)
== END ==
PROVIDERS: PCP Family Medicine; Referring Provider Nurse Practitioner Adult Health; Visit Provider Nurse Practitioner Adult Health
DX: R09.89 Other specified symptoms and signs involving the circulatory and respiratory systems (principal); E78.5 Hyperlipidemia, unspecified
CPT/HCPCS: 36415; 80061; 93922

== ENCOUNTER → 2019-10-31 10:56 | Outpatient (CLI) | payer MEDICARE, BC, SELFPAY ==
[2019-09-27 08:47] VITALS: BMI 30.7
[2019-10-31 12:18] LABS: Absolute Lymphocyte Count 1.97 X10^3/uL (0.83-4.51); Absolute Neutrophil Count 4.4 X10^3/uL (2.0-7.7); Basophil# 0.02 X10^3/uL; Basophil% 0.3 % (0-1); Eosinophil# 0.22 X10^3/uL; Eosinophils% 3.1 % (0-5); Hematocrit 37.3 % (37-47); Hemoglobin 11.7 g/dL (12.0-15.0); Lymphocyte # 1.97 X10^3/ul (4.0); Lymphocyte % 27.7 % (19-41); Mean Corp Hgb Conc 31.4 g/dL (32-36); Mean Corpuscular Volume 89.2 fL (81-99); Mean Platelet Vol. 11.3 fl (6.2-12.0); NRBC Flagged by Analyzer 0 % (0-5); Neutrophil # 4.39 X10^3/uL (2.7-7.7); Neutrophil % 61.6 % (47-70); Platelet Count 252 K/mm3 (150-450); RBC Distribution Width CV 13.8 % (11.6-14.6); RBC Distribution Width SD 45.1 fl (35.1-43.9); Red Blood Count 4.18 M/mm3 (4.2-5.4); White Blood Count 7.1 K/mm3 (4.4-11.0)
[2019-10-31 12:34] LABS: ALB/GLOB Ratio 0.9 RATIO (0.9-2.4); AST(SGOT) 29 U/L (15-37); Alanine Aminotransfer ALT/SGPT 31 U/L (13-56); Albumin, Serum 3.6 g/dL (3.2-5.0); Alkaline Phosphatase 87 U/L (45-117); Anion Gap 5 (5-15); BUN 11 mg/dL (7-18); BUN/Creat Ratio 12.7 RATIO (10-20); CRP 3.34 mg/L (0.0-3.0); Calcium,Total 8.7 mg/dL (8.5-10.1); Chloride 105 mmol/L (98-107); Creatinine, Serum 0.86 mg/dL (0.55-1.02); EST Glomerular Filtration Rate 69 mL/min (>60); Est Glom Filt Rate - Afr Amer 83 mL/min (>60); Ferritin 113 ng/mL (8-252); Globulin 3.9 g/dL (2.2-4.2); Glucose 86 mg/dL (74-106); Iron 63 ug/dL (50-170); Iron Binding Capacity,Total 376 ug/dL (250-450); PERCENT IRON SATURATION 16.8 % (15.0-55.0); Potassium 4.3 mmol/L (3.5-5.1); Protein, Total 7.5 g/dL (6.4-8.2); Sodium Level 136 mmol/L (136-145)
== END ==
PROVIDERS: PCP Family Medicine; Referring Provider Family Medicine
DX: K50.10 Crohn's disease of large intestine without complications (principal); K57.30 Diverticulosis of large intestine without perforation or abscess without bleeding
CPT/HCPCS: 36415; 80053; 82728; 83540; 83550; 85025; 86140

== ENCOUNTER → 2019-11-01 11:54 | Outpatient (CLI) | payer MEDICARE, BC, SELFPAY ==
[2019-07-12 12:13] VITALS: BMI 30.1
[2019-09-27 08:47] VITALS: BMI 30.7
[2019-11-01 12:27] VITALS: BP 140/65; PULSE 67; RESP 16; TEMP 36.4; O2SAT 98; BMI 30.7
[2019-11-01] MEDS: 0.9% NaCl Peripheral Flush Adult/Peds IV (12:27)
[2019-11-01] MEDS: 0.9% NaCl IVPB Med Flush (250 mL) 15 ML IV (12:27)
== END ==
PROVIDERS: PCP Family Medicine
DX: D50.0 Iron deficiency anemia secondary to blood loss (chronic) (principal); K50.10 Crohn's disease of large intestine without complications; K90.9 Intestinal malabsorption, unspecified
CPT/HCPCS: 96413; J7050; A4216; J3380

== ENCOUNTER → 2020-01-17 11:25 | Outpatient (CLI) | payer MEDICARE, BC, SELFPAY ==
[2020-01-10 09:30] VITALS: BMI 31.8
[2020-01-17 15:34] LABS: Absolute Lymphocyte Count 2.15 X10^3/uL (0.83-4.51); Basophil# 0.03 X10^3/uL; Basophil% 0.4 % (0-1); Eosinophil# 0.26 X10^3/uL; Eosinophils% 3.2 % (0-5); Hematocrit 37.9 % (37-47); Hemoglobin 11.7 g/dL (12.0-15.0); Lymphocyte # 2.15 X10^3/ul (4.0); Lymphocyte % 26.8 % (19-41); Mean Corp Hgb Conc 30.9 g/dL (32-36); Mean Corpuscular Volume 90.7 fL (81-99); Mean Platelet Vol. 11.5 fl (6.2-12.0); Monocyte# 0.52 X10^3/uL; Monocyte% 6.5 % (0-10); NRBC Flagged by Analyzer 0 % (0-5); Neutrophil # 5.03 X10^3/uL (2.7-7.7); Neutrophil % 62.7 % (47-70); Platelet Count 226 K/mm3 (150-450); RBC Distribution Width CV 13.6 % (11.6-14.6); RBC Distribution Width SD 45.6 fl (35.1-43.9); Red Blood Count 4.18 M/mm3 (4.2-5.4)
[2020-01-17 15:43] LABS: Vitamin B12 418 pg/mL (211-911)
[2020-01-17 15:50] LABS: ALB/GLOB Ratio 0.9 RATIO (0.9-2.4); AST(SGOT) 33 U/L (15-37); Alanine Aminotransfer ALT/SGPT 37 U/L (13-56); Albumin, Serum 3.6 g/dL (3.2-5.0); Alkaline Phosphatase 89 U/L (45-117); Anion Gap 6 (5-15); BUN 18 mg/dL (7-18); BUN/Creat Ratio 18.9 RATIO (10-20); CRP 3.39 mg/L (0.0-3.0); Calcium,Total 8.5 mg/dL (8.5-10.1); Chloride 104 mmol/L (98-107); Creatinine, Serum 0.95 mg/dL (0.55-1.02); EST Glomerular Filtration Rate 61 mL/min (>60); Est Glom Filt Rate - Afr Amer 74 mL/min (>60); Glucose 176 mg/dL (74-106); Potassium 4.4 mmol/L (3.5-5.1); Protein, Total 7.6 g/dL (6.4-8.2); Sodium Level 136 mmol/L (136-145); Thyroid Stim Hormone (TSH) 3.41 uIU/mL (0.358-3.74)
== END ==
PROVIDERS: PCP Family Medicine; Referring Provider Family Medicine
DX: K50.10 Crohn's disease of large intestine without complications (principal); D64.9 Anemia, unspecified
CPT/HCPCS: 36415; 80053; 82607; 84443; 85025; 86140

== ENCOUNTER → 2020-01-23 07:51 | Outpatient (CLI) | payer MEDICARE, BC, SELFPAY ==
[2020-01-10 09:30] VITALS: BMI 31.8
--- NOTE | 2020-01-23 07:53 | ECHOD_ITS ---
Reason For Study: DYSPNEA/SOB Procedure This was a 2D Doppler, Color Flow transthoracic echocardiogram. Exam performed in department. Left Ventricle Normal LV size. Left ventricular systolic function is normal. The estimated ejection fraction is 60 %. Stage 1 diastolic dysfunction. No regional wall motion abnormalities noted. Right Ventricle Normal RV size. Normal systolic function. Atria Normal left atrium. Normal right atrium. Mitral Valve There is mild mitral annular calcification. Mild (1+) mitral valve insufficiency. Aortic Valve Trisinus/trileaflet aortic valve. Peak aortic valve gradient 24 mmHg. Mean aortic valve gradient 12.3 mmHg. Mild aortic stenosis. Calculated aortic valve area (continuity equation) is 1.2 cm2. Great Vessels Normal aortic root. The pulmonary artery is normal size. Pericardium/Pleural No pericardial effusion. MMode/2D Measurements & Calculations LVIDd: 4.5 cm IVSd: 1.2 cm LVOT diam: 2.0 cm LVIDs: 3.0 cm LVPWd: 1.0 cm LVOT area: 3.1 cm2 RVDd: 2.9 cm FS: 32.0 % Ao root diam: 3.1 cm LAV(MOD-bp): 44.0 ml LA A4 area: 15.5 cm2 LAV(MOD-bp) Indexed: 22.7 ml/m2 LAV(MOD-sp2): 56.1 ml LAV(MOD-sp4): 34.6 ml LA dimension(2D): 3.7 cm RA A4 area: 13.1 cm2 Time Measurements MV dec time: 0.29 sec Doppler Measurements & Calculations MV E max garret: 82.8 cm/sec Lat Peak E' Garret: 6.3 cm/sec Med Peak E' Garret: 6.5 cm/sec MV A max garret: 119.6 cm/sec E/E' lat: 13.1 E/E' med: 12.8 MV E/A: 0.69 Ao V2 max: 244.0 cm/sec LV V1 max: 90.3 cm/sec SV(LVOT): 62.4 ml Ao max P.8 mmHg LV V1 max P.3 mmHg Ao V2 mean: 164.3 cm/sec LV V1 mean P.7 mmHg Ao mean P.3 mmHg LV V1 mean: 61.2 cm/sec Ao V2 VTI: 50.9 cm LV V1 VTI: 20.0 cm KAMLESH(I,D): 1.2 cm2 KAMLESH(V,D): 1.2 cm2 PA V2 max: 90.8 cm/sec Interpretation Summary Normal LV size. Left ventricular systolic function is normal. The estimated ejection fraction is 60 %. Peak aortic valve gradient 24 mmHg. Mean aortic valve gradient 12.3 mmHg. Stage 1 diastolic dysfunction. Ordering Physician: Leslee Ochoa Referring Physician: Star Ta Performed By: Ann Marie Crocker, LORRIE, RVT
== END ==
PROVIDERS: PCP Family Medicine; Referring Provider Physician Assistant Medical; Visit Provider Physician Assistant Medical
DX: I35.0 Nonrheumatic aortic (valve) stenosis (principal)
CPT/HCPCS: 93306

== ENCOUNTER → 2020-02-13 13:53 | Outpatient (CLI) | payer MEDICARE, BC, SELFPAY ==
[2020-01-10 09:30] VITALS: BMI 31.8
[2020-02-13 18:18] LABS: Hematocrit 38.5 % (37-47); Hemoglobin 12.3 g/dL (12.0-15.0); Mean Corp Hgb Conc 31.9 g/dL (32-36); Mean Corpuscular Hgb 28.8 pg (27.0-32.0); Mean Corpuscular Volume 90.2 fL (81-99); Mean Platelet Vol. 11.1 fl (6.2-12.0); Platelet Count 278 K/mm3 (150-450); RBC Distribution Width CV 13.6 % (11.6-14.6); RBC Distribution Width SD 44.6 fl (35.1-43.9); Red Blood Count 4.27 M/mm3 (4.2-5.4); White Blood Count 9.4 K/mm3 (4.4-11.0)
[2020-02-13 18:32] LABS: ALB/GLOB Ratio 0.9 RATIO (0.9-2.4); AST(SGOT) 25 U/L (15-37); Alanine Aminotransfer ALT/SGPT 30 U/L (13-56); Albumin, Serum 3.7 g/dL (3.2-5.0); Alkaline Phosphatase 87 U/L (45-117); Anion Gap 8 (5-15); BUN 11 mg/dL (7-18); BUN/Creat Ratio 12.2 RATIO (10-20); Chloride 103 mmol/L (98-107); EST Glomerular Filtration Rate 65 mL/min (>60); Est Glom Filt Rate - Afr Amer 79 mL/min (>60); Globulin 4.1 g/dL (2.2-4.2); Glucose 182 mg/dL (74-106); Potassium 3.8 mmol/L (3.5-5.1); Protein, Total 7.8 g/dL (6.4-8.2); Sodium Level 135 mmol/L (136-145)
[2020-02-14 08:47] LABS: Hepatitis B Surface Antibody Non-Reactive
[2020-02-14 14:09] LABS: Hepatitis B Surface Antigen Non-Reactive (Nonreactive)
[2020-02-16 03:07] LABS: QNTFERON TB Mitogen Value > 10.00 IU/mL (.); QNTFERON TB Nil Value 0.13 IU/mL (.); QNTFERON TB1+ Ag Value 0.11 IU/mL (.); QNTFERON TB2+ Ag Value 0.15 IU/mL (.)
[2020-02-16 06:08] LABS: Hepatitis B Core AB IgM Negative (Negative); QNTIFERON TB Positive Criteria Negative (Negative)
== END ==
PROVIDERS: PCP Family Medicine; Referring Provider Internal Medicine
DX: K50.10 Crohn's disease of large intestine without complications (principal)
CPT/HCPCS: 36415; 80053; 85027; 86480; 86705; 86706; 87340

== ENCOUNTER → 2020-02-14 | Outpatient (CLI) | payer MEDICARE, BC, SELFPAY ==
[2020-01-10 09:30] VITALS: BMI 31.8
[2020-02-21 06:28] LABS: Calprotectin, Stool 233 ug/g (0-120)
== END | disposition home or self-care (01) ==
PROVIDERS: PCP Family Medicine; Referring Provider Internal Medicine; Visit Provider Internal Medicine
DX: K50.10 Crohn's disease of large intestine without complications (principal)
CPT/HCPCS: 83993; 87493

== ENCOUNTER → 2020-04-16 09:54 | Outpatient (CLI) | payer MEDICARE, BC, SELFPAY ==
[2020-01-10 09:30] VITALS: BMI 31.8
[2020-04-16 13:06] LABS: Hematocrit 36.1 % (37-47); Hemoglobin 11.6 g/dL (12.0-15.0); Mean Corp Hgb Conc 32.1 g/dL (32-36); Mean Corpuscular Hgb 28.2 pg (27.0-32.0); Mean Corpuscular Volume 87.8 fL (81-99); Mean Platelet Vol. 11.6 fl (6.2-12.0); Platelet Count 217 K/mm3 (150-450); RBC Distribution Width CV 13.9 % (11.6-14.6); RBC Distribution Width SD 44.5 fl (35.1-43.9); Red Blood Count 4.11 M/mm3 (4.2-5.4)
[2020-04-16 13:21] LABS: ALB/GLOB Ratio 0.9 RATIO (0.9-2.4); AST(SGOT) 19 U/L (15-37); Alanine Aminotransfer ALT/SGPT 27 U/L (13-56); Albumin, Serum 3.4 g/dL (3.2-5.0); Alkaline Phosphatase 82 U/L (45-117); Anion Gap 7 (5-15); BUN 7 mg/dL (7-18); BUN/Creat Ratio 7.5 RATIO (10-20); Calcium,Total 9.2 mg/dL (8.5-10.1); Chloride 106 mmol/L (98-107); Creatinine, Serum 0.93 mg/dL (0.55-1.02); EST Glomerular Filtration Rate 63 mL/min (>60); Est Glom Filt Rate - Afr Amer 76 mL/min (>60); Globulin 3.8 g/dL (2.2-4.2); Glucose 228 mg/dL (74-106); Potassium 4.3 mmol/L (3.5-5.1); Protein, Total 7.2 g/dL (6.4-8.2); Sodium Level 137 mmol/L (136-145)
[2020-04-16 13:35] LABS: Hemoglobin A1c 11.5 % (3.8-5.6)
== END ==
PROVIDERS: PCP Family Medicine; Referring Provider Family Medicine; Visit Provider Family Medicine
DX: K50.80 Crohn's disease of both small and large intestine without complications (principal); E11.8 Type 2 diabetes mellitus with unspecified complications; N30.00 Acute cystitis without hematuria
CPT/HCPCS: 36415; 80053; 83036; 85027; 87077; 87086; 87088; 87186

== ENCOUNTER → 2020-08-09 11:17 | Outpatient (CLI) | payer MEDICARE, BC, SELFPAY ==
[2020-06-17 11:09] VITALS: BMI 29.6
[2020-08-09 12:22] LABS: Hematocrit 37.3 % (37-47); Hemoglobin 11.8 g/dL (12.0-15.0); Mean Corp Hgb Conc 31.6 g/dL (32-36); Mean Corpuscular Hgb 27.6 pg (27.0-32.0); Mean Corpuscular Volume 87.1 fL (81-99); Mean Platelet Vol. 11.2 fl (6.2-12.0); Platelet Count 225 K/mm3 (150-450); RBC Distribution Width CV 13.8 % (11.6-14.6); RBC Distribution Width SD 44.1 fl (35.1-43.9); Red Blood Count 4.28 M/mm3 (4.2-5.4); White Blood Count 6.7 K/mm3 (4.4-11.0)
[2020-08-09 12:38] LABS: ALB/GLOB Ratio 1.1 RATIO (0.9-2.4); AST(SGOT) 32 U/L (15-37); Alanine Aminotransfer ALT/SGPT 32 U/L (13-56); Albumin, Serum 3.9 g/dL (3.2-5.0); Alkaline Phosphatase 88 U/L (45-117); Anion Gap 8 (5-15); BUN 13 mg/dL (7-18); BUN/Creat Ratio 15.1 RATIO (10-20); Chloride 106 mmol/L (98-107); Creatinine, Serum 0.86 mg/dL (0.55-1.02); EST Glomerular Filtration Rate 69 mL/min (>60); Est Glom Filt Rate - Afr Amer 83 mL/min (>60); Globulin 3.6 g/dL (2.2-4.2); Glucose 121 mg/dL (74-106); Potassium 4.5 mmol/L (3.5-5.1); Protein, Total 7.5 g/dL (6.4-8.2); Sodium Level 140 mmol/L (136-145)
[2020-08-16 11:09] LABS: Calprotectin, Stool 48 ug/g (0-120)
== END ==
PROVIDERS: PCP Family Medicine; Referring Provider Family Medicine; Visit Provider Internal Medicine
DX: K50.10 Crohn's disease of large intestine without complications (principal)
CPT/HCPCS: 36415; 80053; 83993; 85027; 86140

== ENCOUNTER → 2020-09-18 08:51 | Outpatient (CLI) | payer MEDICARE, BC, SELFPAY ==
[2020-06-17 11:09] VITALS: BMI 29.6
--- NOTE | 2020-09-18 13:54 | NEURO ---
NCS and/or EMG Patient Report Ordering Doctor: Sherif Lee DATE OF SERVICE: 09/18/20 Francine presents for electrodiagnostic testing of the upper limbs. She reports numbness and tingling in both hands. Electrodiagnostic findings:Left median motor nerve demonstrates prolonged distal latency with normal amplitude and reduced conduction velocity. Right median motor nerve demonstrates normal distal latency and amplitude and reduced conduction velocity. Prolonged median sensory latency at the wrist is noted bilaterally. Prolonged median palmar latency on the right side. Normal ulnar and radial sensory responses. Normal median ulnar F waves. On needle EMG, 1+ fibrillations noted in the left pronator teres, left triceps and left lower cervical paraspinals Electrodiagnostic impression: This is an abnormal study in the upper limbs. 1. Electrodiagnostic findings demonstrate acute left-sided C7 radiculopathy. Recommend clinical correlation with cervical spine imaging. 2. Electrodiagnostic evidence demonstrates bilateral median mononeuropathy. This is consistent with a moderate bilateral carpal tunnel syndrome, slightly worse on the left side
== END ==
PROVIDERS: PCP Family Medicine; Referring Provider Orthopaedic Surgery; Visit Provider Orthopaedic Surgery
DX: M48.02 Spinal stenosis, cervical region (principal); R20.2 Paresthesia of skin
CPT/HCPCS: 95886; 95913

== ENCOUNTER → 2020-12-17 11:15 | Outpatient (CLI) | payer MEDICARE, BC, SELFPAY ==
[2020-12-17 15:01] LABS: Hematocrit 38.1 % (37-47); Hemoglobin 12.2 g/dL (12.0-15.0); Mean Corpuscular Hgb 28.4 pg (27.0-32.0); Mean Corpuscular Volume 88.6 fL (81-99); Mean Platelet Vol. 11.6 fl (6.2-12.0); Platelet Count 269 K/mm3 (150-450); RBC Distribution Width CV 13.4 % (11.6-14.6); RBC Distribution Width SD 43.7 fl (35.1-43.9); White Blood Count 9.6 K/mm3 (4.4-11.0)
[2020-12-17 15:54] LABS: ALB/GLOB Ratio 0.9 RATIO (0.9-2.4); AST(SGOT) 37 U/L (15-37); Alanine Aminotransfer ALT/SGPT 38 U/L (13-56); Albumin, Serum 3.9 g/dL (3.2-5.0); Alkaline Phosphatase 90 U/L (45-117); Anion Gap 7 (5-15); BUN 19 mg/dL (7-18); CRP < 2.90 mg/L (0.0-3.0); Calcium,Total 9.4 mg/dL (8.5-10.1); Chloride 103 mmol/L (98-107); Creatinine, Serum 0.86 mg/dL (0.55-1.02); EST Glomerular Filtration Rate 68 mL/min (>60); Est Glom Filt Rate - Afr Amer 83 mL/min (>60); Globulin 4.5 g/dL (2.2-4.2); Glucose 90 mg/dL (74-106); Magnesium 2.2 mg/dL (1.6-2.6); Potassium 4.4 mmol/L (3.5-5.1); Protein, Total 8.4 g/dL (6.4-8.2); Sodium Level 135 mmol/L (136-145); Thyroid Stim Hormone (TSH) 1.97 uIU/mL (0.358-3.74)
== END ==
PROVIDERS: PCP Family Medicine; Referring Provider Family Medicine; Visit Provider Family Medicine
DX: M50.30 Other cervical disc degeneration, unspecified cervical region (principal); R25.2 Cramp and spasm
CPT/HCPCS: 36415; 80053; 83735; 83970; 84443; 85027; 86140

== ENCOUNTER → 2020-12-26 08:36 | Outpatient (CLI) | payer MEDICARE, BC, SELFPAY ==
--- NOTE | 2020-12-26 08:58 | BD_ITS ---
STUDY: DUAL ENERGY X-RAY ABSORPTIOMETRY / DXA REASON FOR EXAM: Female, 75 years old. [id number] See Attached. Patient is postmenopausal. TECHNIQUE: Bone Mineral Density (BMD) measurements of lumbar spine and bilateral hips were obtained. COMPARISON: Comparison is made with prior study dated 04/24/2014. FINDINGS: Lumbar Spine (L1-L4): g/cm2 (1.085) / T-score (0.3) / Z-score (2.6) Findings are suggestive of normal bone density with a low fracture risk. Left Femur Total: g/cm2 (0.943) / T-score (0.0) / Z-score (1.7) Left Femoral Neck: g/cm2 (0.791) / T-score (-0.5) / Z-score (1.5) Right Femur Total: g/cm2 (0.961) / T-score (0.2) / Z-score (1.8) Right Femoral Neck: g/cm2 (0.818) / T-score (0.3) / Z-score (1.7) The T-Scores on the most recent prior examination were: Lumbar Spine (L1-L4): There has been worsening of bone density since the previous examination. Left Femur Total: which represents a worsening of 7.9%. Right Femur Total: which represents a worsening of 12.8%. BD/Dexa Bone Density Study IMPRESSION: The patient is considered normal as outlined below according to World Alex Organization (WHO) criteria with a low fracture risk. There has been worsening of bone density since the previous examination. Reference Information: The T-score is the number of standard deviations above or below the standard which is normal for young adults at their peak bone mineral density. The World Health Organization (WHO) interprets the T-scores as follows: Above -1 Normal bone density Between -1 and -2.5 Osteopenia Equal to / or below -2.5 Osteoporosis As a practical clinical guideline, osteopenia may be graded as follows: Mild -1 through -1.5 Moderate -1.6 through -2.0 Severe -2.1 through -2.4 The Z-score is the number of standard deviations above or below age-matched controls. A Z-score of less than -1.5 would be considered abnormal. References: 1. NIH Osteoporosis and Related Bone Diseases www osteo.org 2. International Society for Clinical Densitometry www iscd.org 3. National Osteoporosis Foundation www nof.org Electronically Signed: Rohit Bryant MD at 8:34 EDT , Service support ,
== END ==
PROVIDERS: PCP Family Medicine; Visit Provider Family Medicine
DX: Z91.89 Other specified personal risk factors, not elsewhere classified (principal); Z78.0 Asymptomatic menopausal state
CPT/HCPCS: 77080

== ENCOUNTER → 2021-02-13 11:36 | Outpatient (CLI) | payer MEDICARE, BC, SELFPAY ==
[2021-02-13 15:05] LABS: Hemoglobin 12.2 g/dL (12.0-15.0); Mean Corp Hgb Conc 32.1 g/dL (32-36); Mean Corpuscular Hgb 28.8 pg (27.0-32.0); Mean Corpuscular Volume 89.8 fL (81-99); Mean Platelet Vol. 11.5 fl (6.2-12.0); Platelet Count 267 K/mm3 (150-450); RBC Distribution Width SD 45.6 fl (35.1-43.9); Red Blood Count 4.23 M/mm3 (4.2-5.4); White Blood Count 8.2 K/mm3 (4.4-11.0)
[2021-02-13 15:15] LABS: ALB/GLOB Ratio 0.9 RATIO (0.9-2.4); AST(SGOT) 32 U/L (15-37); Alanine Aminotransfer ALT/SGPT 34 U/L (13-56); Albumin, Serum 3.7 g/dL (3.2-5.0); Alkaline Phosphatase 84 U/L (45-117); Anion Gap 6 (5-15); BUN 14 mg/dL (7-18); CRP 3.21 mg/L (0.0-3.0); Calcium,Total 9.4 mg/dL (8.5-10.1); Chloride 106 mmol/L (98-107); Creatinine, Serum 0.87 mg/dL (0.55-1.02); EST Glomerular Filtration Rate 67 mL/min (>60); Est Glom Filt Rate - Afr Amer 82 mL/min (>60); Globulin 4.3 g/dL (2.2-4.2); Glucose 127 mg/dL (74-106); Potassium 4.4 mmol/L (3.5-5.1); Sodium Level 138 mmol/L (136-145)
[2021-02-13 15:36] LABS: Hepatitis B Surface Antigen Non-Reactive (Nonreactive)
[2021-02-17 16:08] LABS: QNTFERON TB Mitogen Value > 10.00 IU/mL (.); QNTFERON TB Nil Value 0.14 IU/mL (.); QNTFERON TB1+ Ag Value 0.17 IU/mL (.); QNTFERON TB2+ Ag Value 0.14 IU/mL (.)
[2021-02-17 16:21] LABS: Hepatitis B Core AB IgM Negative (Negative); QNTIFERON TB Positive Criteria Negative (Negative)
== END ==
PROVIDERS: PCP Family Medicine; Referring Provider Family Medicine; Visit Provider Internal Medicine
DX: K50.10 Crohn's disease of large intestine without complications (principal)
CPT/HCPCS: 36415; 80053; 85027; 86140; 86480; 86705; 87340

== ENCOUNTER → 2021-02-14 11:21 | Outpatient (CLI) | payer MEDICARE, BC, SELFPAY ==
[2021-02-18 21:31] LABS: Calprotectin, Stool 38 ug/g (0-120)
== END ==
PROVIDERS: PCP Family Medicine; Referring Provider Family Medicine; Visit Provider Internal Medicine
DX: K50.10 Crohn's disease of large intestine without complications (principal)
CPT/HCPCS: 83993

== ENCOUNTER 2021-03-21 11:14 | Outpatient (CLI) | payer MEDICARE, BC, SELFPAY | END 2021-03-21 23:59 | disposition short-term general hospital (02) | PROVIDERS: PCP Family Medicine; Referring Provider Family Medicine; Visit Provider Family Medicine | DX: R19.7 Diarrhea, unspecified (principal) ==

== ENCOUNTER 2021-04-22 11:58 | Outpatient (CLI) | payer MEDICARE, BC, SELFPAY | END 2021-04-22 23:59 | disposition home or self-care (01) | LOC: LAB 12:08 | PROVIDERS: PCP Family Medicine; Visit Provider Internal Medicine | DX: K50.10 Crohn's disease of large intestine without complications (principal) | CPT/HCPCS: 36415 ==

== ENCOUNTER 2021-06-09 10:30 | Outpatient (CLI) | payer MEDICARE, BC, SELFPAY ==
[2021-06-09 12:10] LABS: Absolute Lymphocyte Count 4.97 X10^3/uL (0.83-4.51); Absolute Neutrophil Count 9.4 X10^3/uL (2.0-7.7); Basophil# 0.04 X10^3/uL; Basophil% 0.3 % (0-1); Eosinophil# 0.12 X10^3/uL; Eosinophils% 0.8 % (0-5); Hematocrit 38.6 % (37-47); Hemoglobin 12.2 g/dL (12.0-15.0); Lymphocyte # 4.97 X10^3/ul (0.83-4.51); Lymphocyte % 32.2 % (19-41); Mean Corp Hgb Conc 31.6 g/dL (32-36); Mean Corpuscular Hgb 28.1 pg (27.0-32.0); Mean Corpuscular Volume 88.9 fL (81-99); Mean Platelet Vol. 11.3 fl (6.2-12.0); Monocyte# 0.83 X10^3/uL; Monocyte% 5.4 % (0-10); NRBC Flagged by Analyzer 0 % (0-5); Neutrophil # 9.41 X10^3/uL (2.7-7.7); Neutrophil % 60.9 % (47-70); Platelet Count 318 K/mm3 (150-450); RBC Distribution Width CV 14.1 % (11.6-14.6); RBC Distribution Width SD 45.9 fl (35.1-43.9); RET-HE 32.9 pg (30-35); Red Blood Count 4.34 M/mm3 (4.2-5.4); Reticulocyte Count 1.64 % (0.5-1.5); White Blood Count 15.4 K/mm3 (4.4-11.0)
[2021-06-09 12:20] LABS: Vitamin B12 478 pg/mL (211-911)
[2021-06-09 12:30] LABS: AST(SGOT) 29 U/L (15-37); Alanine Aminotransfer ALT/SGPT 39 U/L (13-56); Albumin, Serum 3.8 g/dL (3.2-5.0); Alkaline Phosphatase 87 U/L (45-117); Anion Gap 8 (5-15); BUN 19 mg/dL (7-18); BUN/Creat Ratio 20.5 RATIO (10-20); Calcium,Total 8.9 mg/dL (8.5-10.1); Chloride 103 mmol/L (98-107); Creatinine, Serum 0.93 mg/dL (0.55-1.02); EST Glomerular Filtration Rate 63 mL/min (>60); Est Glom Filt Rate - Afr Amer 76 mL/min (>60); Ferritin 75 ng/mL (8-252); Globulin 3.9 g/dL (2.2-4.2); Glucose 131 mg/dL (74-106); Iron 85 ug/dL (50-170); Iron Binding Capacity,Total 375 ug/dL (250-450); PERCENT IRON SATURATION 22.7 % (15.0-55.0); Potassium 3.6 mmol/L (3.5-5.1); Protein, Total 7.7 g/dL (6.4-8.2); Sodium Level 137 mmol/L (136-145)
[2021-06-09 13:21] LABS: Hemoglobin A1c 5.9 % (3.8-5.6)
== END 2021-06-09 23:59 | disposition home or self-care (01) ==
PROVIDERS: PCP Family Medicine; Visit Provider Family Medicine
DX: E61.1 Iron deficiency (principal); K50.80 Crohn's disease of both small and large intestine without complications; E11.42 Type 2 diabetes mellitus with diabetic polyneuropathy; K92.2 Gastrointestinal hemorrhage, unspecified
CPT/HCPCS: 36415; 80053; 82607; 82728; 82746; 83036; 83540; 83550; 85025; 85045

== ENCOUNTER → 2021-07-03 | Outpatient (CLI) | payer MEDICARE, BC, SELFPAY | END | disposition home or self-care (01) | LOC: SL 11:25 | PROVIDERS: PCP Family Medicine; Visit Provider Internal Medicine Critical Care Medicine | DX: G47.33 Obstructive sleep apnea (adult) (pediatric) (principal) | CPT/HCPCS: 98960; G0463 ==

== ENCOUNTER → 2021-08-11 | Outpatient (CLI) | payer MEDICARE, BC, SELFPAY ==
[2021-08-11 15:29] LABS: Absolute Neutrophil Count 5.1 X10^3/uL (2.0-7.7); Basophil# 0.05 X10^3/uL; Basophil% 0.6 % (0-1); Eosinophil# 0.31 X10^3/uL; Eosinophils% 3.4 % (0-5); Hematocrit 37.5 % (37-47); Hemoglobin 11.9 g/dL (12.0-15.0); Lymphocyte % 32.2 % (19-41); Mean Corp Hgb Conc 31.7 g/dL (32-36); Mean Corpuscular Hgb 28.3 pg (27.0-32.0); Mean Corpuscular Volume 89.1 fL (81-99); Mean Platelet Vol. 11.9 fl (6.2-12.0); Monocyte% 6.7 % (0-10); NRBC Flagged by Analyzer 0 % (0-5); Neutrophil # 5.13 X10^3/uL (2.7-7.7); Neutrophil % 56.8 % (47-70); Platelet Count 268 K/mm3 (150-450); RBC Distribution Width CV 13.6 % (11.6-14.6); RBC Distribution Width SD 44.4 fl (35.1-43.9); Red Blood Count 4.21 M/mm3 (4.2-5.4)
[2021-08-11 16:27] LABS: Hemoglobin A1c 5.9 % (3.8-5.6)
[2021-08-11 16:30] LABS: AST(SGOT) 37 U/L (15-37); Alanine Aminotransfer ALT/SGPT 30 U/L (13-56); Alkaline Phosphatase 78 U/L (45-117); Anion Gap 8 (5-15); BUN 12 mg/dL (7-18); BUN/Creat Ratio 13.7 RATIO (10-20); Calcium,Total 9.7 mg/dL (8.5-10.1); Chloride 103 mmol/L (98-107); Creatinine, Serum 0.88 mg/dL (0.55-1.02); EST Glomerular Filtration Rate 67 mL/min (>60); Est Glom Filt Rate - Afr Amer 81 mL/min (>60); Ferritin 75 ng/mL (8-252); Glucose 100 mg/dL (74-106); Potassium 4.9 mmol/L (3.5-5.1); Sodium Level 136 mmol/L (136-145)
[2021-08-13 20:59] LABS: Fructosamine 282 umol/L (0-285)
== END | disposition home or self-care (01) ==
LOC: MFPLAB 11:40
PROVIDERS: PCP Family Medicine; Visit Provider Family Medicine
DX: E11.42 Type 2 diabetes mellitus with diabetic polyneuropathy (principal); K50.80 Crohn's disease of both small and large intestine without complications
CPT/HCPCS: 36415; 80053; 82728; 82985; 83036; 85025

== ENCOUNTER → 2021-08-14 | Outpatient (CLI) | payer MEDICARE, BC, SELFPAY | END | disposition home or self-care (01) | LOC: SL 12:04 | PROVIDERS: PCP Family Medicine; Visit Provider Internal Medicine Critical Care Medicine | DX: G47.33 Obstructive sleep apnea (adult) (pediatric) (principal) ==

== ENCOUNTER → 2021-08-20 | Outpatient (CLI) | payer MEDICARE, BC, SELFPAY ==
--- NOTE | 2021-08-20 10:57 | ECHOD_ITS ---
Reason For Study: Murmur Procedure This was a 2D Doppler, Color Flow transthoracic echocardiogram. Myocardial strain analysis was performed in this exam to aid in the assessment of cardiac function. Exam performed in department. Left Ventricle Normal LV size. Mild concentric left ventricular hypertrophy. Left ventricular systolic function is normal. The estimated ejection fraction is 60 %. Stage 1 diastolic dysfunction. No regional wall motion abnormalities noted. Right Ventricle Normal RV size. Normal systolic function. Mitral Valve There is mild to moderate mitral annular calcification. Tricuspid Valve Normal tricuspid valve. Aortic Valve Trisinus/trileaflet aortic valve. Mild focal aortic valve calcification. Peak aortic valve gradient 35 mmHg. Mean aortic valve gradient 20 mmHg. Moderate aortic stenosis. Pulmonic Valve Normal pulmonic valve. Great Vessels Normal aortic root. The pulmonary artery is normal size. Normal inferior vena cava. Pericardium/Pleural No pericardial effusion. MMode/2D Measurements & Calculations LVIDd: 4.2 cm IVSd: 1.2 cm LVOT diam: 2.0 cm LVIDs: 2.1 cm LVPWd: 1.4 cm LVOT area: 3.1 cm2 RVDd: 3.1 cm FS: 49.7 % LA dimension: 3.9 cm LAV(MOD-bp): 56.6 ml LA A4 area: 17.9 cm2 LAV(MOD-bp) Indexed: 30.4 ml/m2 LAV(MOD-sp2): 57.0 ml LAV(MOD-sp4): 53.3 ml RA A4 area: 11.5 cm2 Time Measurements MV dec time: 0.27 sec Doppler Measurements & Calculations MV E max garret: 95.7 cm/sec Lat Peak E' Garret: 5.9 cm/sec Med Peak E' Garret: 7.6 cm/sec MV A max garret: 123.7 cm/sec E/E' lat: 16.1 E/E' med: 12.7 MV E/A: 0.77 MV V2 max: 137.0 cm/sec MV P1/2t max garret: 114.9 cm/sec Ao V2 max: 295.0 cm/sec MV max P.5 mmHg MV P1/2t: 98.8 msec Ao max P.9 mmHg MV V2 mean: 74.4 cm/sec MV dec slope: 340.7 cm/sec2 Ao V2 mean: 211.5 cm/sec MV mean P.6 mmHg MVA(P1/2t): 2.2 cm2 Ao mean P.6 mmHg MV V2 VTI: 37.9 cm Ao V2 VTI: 71.2 cm MVA(VTI): 1.7 cm2 KAMLESH(I,D): 0.92 cm2 KAMLESH(V,D): 0.87 cm2 LV V1 max: 82.4 cm/sec SV(LVOT): 65.5 ml PA V2 max: 82.8 cm/sec LV V1 max P.7 mmHg LV V1 mean P.3 mmHg LV V1 mean: 53.4 cm/sec LV V1 VTI: 21.1 cm ECHO/Echo Complete Interpretation Summary Normal LV size. Mild concentric left ventricular hypertrophy. Left ventricular systolic function is normal. The estimated ejection fraction is 60 %. Stage 1 diastolic dysfunction. Peak aortic valve gradient 35 mmHg. Mean aortic valve gradient 20 mmHg. Moderate aortic stenosis. Ordering Physician: Shaun Del Valle Referring Physician: Star Ta Performed By: Sourav Schroeder RCS
== END | disposition home or self-care (01) ==
LOC: CVS 10:54
PROVIDERS: PCP Family Medicine; Referring Provider Internal Medicine Cardiovascular Disease; Visit Provider Internal Medicine Cardiovascular Disease
DX: I35.0 Nonrheumatic aortic (valve) stenosis (principal)
CPT/HCPCS: 93306

== ENCOUNTER 2021-09-05 15:49 | Outpatient (CLI) | payer MEDICARE, BC, SELFPAY ==
[2021-09-05 17:22] LABS: Color, Urine Yellow (Yellow); Glucose, Dipstick Normal (Normal); Ketone-Dipstick Negative (Negative); Leukocyte Esterase-Dipstick 100 /ul (Negative); Nitrite-Dipstick Negative (Negative); Occult Blood-Urine 250 /ul (Negative); Protein-Dipstick 500 mg/dl (Negative); Specific Gravity, Urine 1.025 (1.002-1.030); Urine Bilirubin Dipstick Negative (Negative); Urine Clarity Sl. Cloudy (Clear); Urine Urobilinogen Normal (Normal)
== END 2021-09-05 23:59 | disposition home or self-care (01) ==
PROVIDERS: PCP Family Medicine; Referring Provider Family Medicine; Visit Provider Family Medicine
DX: E11.9 Type 2 diabetes mellitus without complications (principal); Z48.815 Encounter for surgical aftercare following surgery on the digestive system
CPT/HCPCS: 81002; 87086; 87088

== ENCOUNTER → 2021-09-09 | Outpatient (CLI) | payer MEDICARE, BC, SELFPAY | END | disposition home or self-care (01) | LOC: MFPLAB 14:15 | PROVIDERS: PCP Family Medicine; Visit Provider Family Medicine | DX: R39.15 Urgency of urination (principal) | CPT/HCPCS: 87086; 87088 ==

== ENCOUNTER 2022-02-09 12:05 | Outpatient (CLI) | payer MEDICARE, BC, SELFPAY ==
[2022-02-09 15:15] LABS: Absolute Lymphocyte Count 2.31 X10^3/uL (0.83-4.51); Absolute Neutrophil Count 4.4 X10^3/uL (2.0-7.7); Basophil# 0.03 X10^3/uL; Basophil% 0.4 % (0-1); Eosinophil# 0.21 X10^3/uL; Eosinophils% 2.8 % (0-5); Hematocrit 31.7 % (37-47); Hemoglobin 10.5 g/dL (12.0-15.0); Lymphocyte # 2.31 X10^3/ul (0.83-4.51); Lymphocyte % 30.6 % (19-41); Mean Corp Hgb Conc 33.1 g/dL (32-36); Mean Corpuscular Hgb 29.6 pg (27.0-32.0); Mean Corpuscular Volume 89.3 fL (81-99); Mean Platelet Vol. 11.5 fl (6.2-12.0); Monocyte# 0.55 X10^3/uL; Monocyte% 7.3 % (0-10); NRBC Flagged by Analyzer 0 % (0-5); Neutrophil # 4.43 X10^3/uL (2.7-7.7); Neutrophil % 58.6 % (47-70); Platelet Count 181 K/mm3 (150-450); RBC Distribution Width SD 46.2 fl (35.1-43.9); Red Blood Count 3.55 M/mm3 (4.2-5.4); White Blood Count 7.6 K/mm3 (4.4-11.0)
[2022-02-09 15:40] LABS: Microalbumin:Creatinine Ratio 14.5 mg/g CRE (<30 mg/g CRE)
[2022-02-09 15:41] LABS: ALB/GLOB Ratio 1.2 RATIO (0.9-2.4); AST(SGOT) 24 U/L (15-37); Alanine Aminotransfer ALT/SGPT 31 U/L (13-56); Alkaline Phosphatase 86 U/L (45-117); Anion Gap 7 (5-15); BUN 23 mg/dL (7-18); BUN/Creat Ratio 25.4 RATIO (10-20); Chloride 112 mmol/L (98-107); EST Glomerular Filtration Rate 65 mL/min (>60); Est Glom Filt Rate - Afr Amer 78 mL/min (>60); Globulin 3.3 g/dL (2.2-4.2); Glucose 86 mg/dL (74-106); Potassium 4.3 mmol/L (3.5-5.1); Protein, Total 7.3 g/dL (6.4-8.2); Sodium Level 139 mmol/L (136-145)
== END 2022-02-09 23:59 | disposition home or self-care (01) ==
LOC: MFPLAB 12:06
PROVIDERS: PCP Family Medicine; Visit Provider Family Medicine
DX: E11.42 Type 2 diabetes mellitus with diabetic polyneuropathy (principal)
CPT/HCPCS: 36415; 80053; 82043; 82570; 83036; 84443; 85025

== ENCOUNTER → 2022-03-10 | Outpatient (CLI) | payer MEDICARE, BC, SELFPAY ==
[2022-03-10 12:56] LABS: T4 Free Direct 1.26 ng/dL (0.76-1.46); Thyroid Stim Hormone (TSH) 0.07 uIU/mL (0.358-3.74)
== END | disposition home or self-care (01) ==
LOC: MFPLAB 10:28
PROVIDERS: PCP Family Medicine; Referring Provider Family Medicine; Visit Provider Family Medicine
DX: E03.9 Hypothyroidism, unspecified (principal)
CPT/HCPCS: 36415; 84439; 84443

== ENCOUNTER → 2022-06-04 | Outpatient (CLI) | payer MEDICARE, BC, SELFPAY ==
[2022-06-04 14:04] LABS: Mucous, Urine 0 SEEN /hpf (<or=2+)
[2022-06-04 15:29] LABS: Color, Urine Yellow (Yellow); Glucose, Dipstick Normal (Normal); Ketone-Dipstick Negative (Negative); Leukocyte Esterase-Dipstick 500 /ul (Negative); Nitrite-Dipstick Negative (Negative); Occult Blood-Urine 10 /ul (Negative); Protein-Dipstick 15 mg/dl (Negative); Specific Gravity, Urine 1.015 (1.002-1.030); Urine Bilirubin Dipstick Negative (Negative); Urine Clarity Sl. Cloudy (Clear); Urine Urobilinogen Normal (Normal)
[2022-06-04 15:44] LABS: Red Blood Cells-Urine 0-5 SEEN /hpf (0-5); White Blood Cells 25-50 SEEN /hpf (0-5)
[2022-06-04 15:45] LABS: Bacteria RARE /hpf (None Seen); Squamous Epithelial Cells - UA 0-5 SEEN /hpf (5-10)
== END | disposition home or self-care (01) ==
LOC: LABSPEC 13:59
PROVIDERS: PCP Family Medicine; Visit Provider Nurse Practitioner Family
DX: N39.0 Urinary tract infection, site not specified (principal)
CPT/HCPCS: 81001; 87077; 87086; 87088; 87186

== ENCOUNTER → 2022-06-19 | Outpatient (CLI) | payer MEDICARE, BC, SELFPAY ==
[2022-06-19 15:03] LABS: Absolute Lymphocyte Count 1.79 X10^3/uL (0.83-4.51); Absolute Neutrophil Count 3.2 X10^3/uL (2.0-7.7); Basophil# 0.03 X10^3/uL; Basophil% 0.5 % (0-1); Eosinophil# 0.19 X10^3/uL; Eosinophils% 3.4 % (0-5); Hematocrit 32.9 % (37-47); Hemoglobin 10.6 g/dL (12.0-15.0); Lymphocyte # 1.79 X10^3/ul (0.83-4.51); Lymphocyte % 32.1 % (19-41); Mean Corp Hgb Conc 32.2 g/dL (32-36); Mean Corpuscular Hgb 28.8 pg (27.0-32.0); Mean Corpuscular Volume 89.4 fL (81-99); Mean Platelet Vol. 11.4 fl (6.2-12.0); Monocyte# 0.34 X10^3/uL; Monocyte% 6.1 % (0-10); NRBC Flagged by Analyzer 0 % (0-5); Neutrophil # 3.22 X10^3/uL (2.7-7.7); Neutrophil % 57.7 % (47-70); Platelet Count 189 K/mm3 (150-450); RBC Distribution Width SD 45.7 fl (35.1-43.9); Red Blood Count 3.68 M/mm3 (4.2-5.4); White Blood Count 5.6 K/mm3 (4.4-11.0)
[2022-06-19 15:26] LABS: Erythrocyte Sedimentation Rate 13 mm/hr (0-30)
[2022-06-19 16:06] LABS: AST(SGOT) 31 U/L (15-37); Alanine Aminotransfer ALT/SGPT 35 U/L (13-56); Albumin, Serum 3.7 g/dL (3.2-5.0); Alkaline Phosphatase 107 U/L (45-117); Anion Gap 8 (5-15); BUN 19 mg/dL (7-18); BUN/Creat Ratio 17.3 RATIO (10-20); CRP < 2.90 mg/L (0.0-3.0); Calcium,Total 9.1 mg/dL (8.5-10.1); Chloride 110 mmol/L (98-107); EST Glomerular Filtration Rate 52 mL/min (>60); Est Glom Filt Rate - Afr Amer 62 mL/min (>60); Globulin 3.6 g/dL (2.2-4.2); Glucose 181 mg/dL (74-106); Potassium 4.5 mmol/L (3.5-5.1); Protein, Total 7.3 g/dL (6.4-8.2); Sodium Level 136 mmol/L (136-145)
[2022-06-19 16:07] LABS: Microalbumin,Random Urine 16.2 mg/L (NO RANGE EST.)
[2022-06-19 17:14] LABS: Hemoglobin A1c 6.5 % (3.8-5.6)
== END | disposition home or self-care (01) ==
LOC: MFPLAB 11:35
PROVIDERS: PCP Family Medicine; Visit Provider Family Medicine
DX: E11.42 Type 2 diabetes mellitus with diabetic polyneuropathy (principal); K50.80 Crohn's disease of both small and large intestine without complications
CPT/HCPCS: 36415; 80053; 82043; 82570; 83036; 85025; 85652; 86140

== ENCOUNTER → 2022-08-04 | Outpatient (CLI) | payer MEDICARE, BC, SELFPAY ==
[2022-08-04 10:21] LABS: ALB/GLOB Ratio 0.9 RATIO (0.9-2.4); AST(SGOT) 24 U/L (15-37); Alanine Aminotransfer ALT/SGPT 34 U/L (13-56); Albumin, Serum 3.6 g/dL (3.2-5.0); Alkaline Phosphatase 103 U/L (45-117); BUN 22 mg/dL (7-18); Chloride 112 mmol/L (98-107); Cholesterol 156 mg/dL (200); EST Glomerular Filtration Rate 52 mL/min (>60); Est Glom Filt Rate - Afr Amer 62 mL/min (>60); Globulin 3.8 g/dL (2.2-4.2); Glucose 130 mg/dL (74-106); Potassium 4.7 mmol/L (3.5-5.1); Protein, Total 7.4 g/dL (6.4-8.2); Sodium Level 141 mmol/L (136-145); Triglycerides 324 mg/dL
[2022-08-04 10:22] LABS: Anion Gap 8 (5-15); Hemoglobin A1c 6.4 % (3.8-5.6); High Density Lipoprotein 34 mg/dL; Very Low Density Lipoprotein 65 mg/dL (5-40)
== END | disposition home or self-care (01) ==
LOC: MFPLAB 08:24
PROVIDERS: PCP Family Medicine; Visit Provider Family Medicine
DX: E11.42 Type 2 diabetes mellitus with diabetic polyneuropathy (principal)
CPT/HCPCS: 36415; 80053; 80061; 83036

== ENCOUNTER → 2023-01-22 | Outpatient (CLI) | payer MEDICARE, BC, SELFPAY ==
[2023-01-22 15:40] LABS: Absolute Lymphocyte Count 1.77 X10^3/uL (0.83-4.51); Absolute Neutrophil Count 5.5 X10^3/uL (2.0-7.7); Basophil# 0.05 X10^3/uL; Basophil% 0.6 % (0-1); Eosinophil# 0.18 X10^3/uL; Eosinophils% 2.3 % (0-5); Hematocrit 33.7 % (37-47); Hemoglobin 10.4 g/dL (12.0-15.0); Lymphocyte # 1.77 X10^3/ul (0.83-4.51); Lymphocyte % 22.3 % (19-41); Mean Corp Hgb Conc 30.9 g/dL (32-36); Mean Corpuscular Hgb 28.7 pg (27.0-32.0); Mean Corpuscular Volume 93.1 fL (81-99); Mean Platelet Vol. 11.8 fl (6.2-12.0); Monocyte# 0.43 X10^3/uL; Monocyte% 5.4 % (0-10); NRBC Flagged by Analyzer 0 % (0-5); Neutrophil # 5.49 X10^3/uL (2.7-7.7); Neutrophil % 69.1 % (47-70); Platelet Count 217 K/mm3 (150-450); RBC Distribution Width CV 13.4 % (11.6-14.6); RBC Distribution Width SD 45.7 fl (35.1-43.9); Red Blood Count 3.62 M/mm3 (4.2-5.4); White Blood Count 7.9 K/mm3 (4.4-11.0)
[2023-01-22 15:54] LABS: Hemoglobin A1c 6.8 % (3.8-5.6)
[2023-01-22 16:01] LABS: Erythrocyte Sedimentation Rate 21 mm/hr (0-30)
[2023-01-22 16:31] LABS: AST(SGOT) 28 U/L (15-37); Alanine Aminotransfer ALT/SGPT 32 U/L (13-56); Albumin, Serum 3.8 g/dL (3.2-5.0); Alkaline Phosphatase 101 U/L (45-117); Anion Gap 6 (5-15); BUN 22 mg/dL (7-18); BUN/Creat Ratio 19.5 RATIO (10-20); CRP < 2.90 mg/L (0.0-3.0); Calcium,Total 9.4 mg/dL (8.5-10.1); Chloride 109 mmol/L (98-107); Creatinine, Serum 1.13 mg/dL (0.55-1.02); EST Glomerular Filtration Rate 50 mL/min (>60); Est Glom Filt Rate - Afr Amer 60 mL/min (>60); Ferritin 75 ng/mL (8-252); Globulin 3.8 g/dL (2.2-4.2); Glucose 148 mg/dL (74-106); Iron Binding Capacity,Total 390 ug/dL (250-450); Magnesium 2.5 mg/dL (1.6-2.6); Potassium 4.7 mmol/L (3.5-5.1); Protein, Total 7.6 g/dL (6.4-8.2); Sodium Level 138 mmol/L (136-145); T4 Free Direct 1.07 ng/dL (0.76-1.46); Thyroid Stim Hormone (TSH) 1.87 uIU/mL (0.358-3.74)
[2023-01-25 09:48] LABS: PTHIN 22.1 pg/mL (18.4-80.1)
== END | disposition home or self-care (01) ==
LOC: MFPLAB 12:11
PROVIDERS: PCP Family Medicine; Visit Provider Family Medicine
DX: R25.2 Cramp and spasm (principal); K50.80 Crohn's disease of both small and large intestine without complications; E11.42 Type 2 diabetes mellitus with diabetic polyneuropathy; E03.9 Hypothyroidism, unspecified; D53.9 Nutritional anemia, unspecified
CPT/HCPCS: 36415; 80053; 82728; 83036; 83550; 83735; 83970; 84439; 84443; 85025; 85652; 86140

== ENCOUNTER → 2023-01-27 | Outpatient (CLI) | payer MEDICARE, BC, SELFPAY ==
--- NOTE | 2023-01-27 12:06 | BI_ITS ---
MAMMOGRAPHY - BILATERAL SCREENING REASON FOR EXAM: Female, 77 years old. Routine annual screening examination. PERTINENT HISTORY: Non-contributory. TECHNIQUE: Digital bilateral breast ladonna (3D mammographic acquisition) in the CC and MLO projections. 2-D mediolateral oblique (MLO) and craniocaudad (CC) views of both breasts were obtained. CAD: Full Field Digital Mammography with Computer Added Detection was performed. COMPARISON: Comparison is made with prior mammogram dated September 29, 2019 and March 29, 2018. FINDINGS: Breast Composition: The breasts are heterogeneously dense, which may obscure small masses. Microcalcifications are seen in the upper outer quadrant of the left breast. The patient will be recalled for magnification spot views. Stable benign-appearing bilateral axillary lymph nodes. No other significant abnormalities are identified. BI/SCRN MAMM (CAD)W/LADONNA BILAT IMPRESSION: Microcalcifications are seen in the upper outer quadrant of the left breast as described. The patient will be recalled for magnification spot views in the mediolateral oblique and craniocaudad projections. Recall Side: Left Breast ASSESSMENT CATEGORY: BIRADS Category 0: Incomplete. Need additional imaging evaluation. A letter regarding these results will be sent to the patient by the facility within 30 days. Approximately 10% of breast cancers are not detected by mammography. A normal mammogram should not delay biopsy of a clinically suspicious abnormality. [id number] Electronically Signed: Rohit Bryant MD at 15:11 EST ,
== END | disposition home or self-care (01) ==
LOC: OPBI 12:04
PROVIDERS: PCP Family Medicine; Referring Provider Family Medicine; Visit Provider Family Medicine
DX: Z12.31 Encounter for screening mammogram for malignant neoplasm of breast (principal); R39.15 Urgency of urination
CPT/HCPCS: 77063; 77067; 87077; 87086; 87088; 87186

== ENCOUNTER → 2023-02-04 | Outpatient (CLI) | payer MEDICARE, BC, SELFPAY ==
--- NOTE | 2023-02-04 08:56 | BI_ITS ---
MAMMOGRAPHY - UNILATERAL DIAGNOSTIC: LEFT BREAST REASON FOR EXAM: Female, 77 years old. Abnormal screening mammogram. PERTINENT HISTORY: Non-contributory. TECHNIQUE: Compression magnification views of the left breast were obtained. CAD: Full Field Digital Mammography with Computer Added Detection was performed. COMPARISON: Comparison is made with prior mammogram dated January 27, 2023. FINDINGS: Breast Composition: The breasts are heterogeneously dense, which may obscure small masses. Persistent microcalcifications in the upper outer quadrant of the left breast. Biopsy recommended. Stable appearance of the left axillary lymph nodes. No other significant abnormalities are identified. BI/DIAG MAMM W/CAD, UNILAT IMPRESSION: Persistent cluster microcalcification as described. Biopsy recommended. ASSESSMENT CATEGORY: BIRADS Category 4: Suspicious - Biopsy Should Be Considered. A letter regarding these results will be sent to the patient by the facility within 30 days. Approximately 10% of breast cancers are not detected by mammography. A normal mammogram should not delay biopsy of a clinically suspicious abnormality. Electronically Signed: Rohit Bryant MD at 12:32 EST ,
== END | disposition home or self-care (01) ==
LOC: OPBI 08:55
PROVIDERS: PCP Family Medicine; Referring Provider Family Medicine; Visit Provider Family Medicine
DX: R92.8 Other abnormal and inconclusive findings on diagnostic imaging of breast (principal)
CPT/HCPCS: 77065

== ENCOUNTER → 2023-02-08 | Outpatient (CLI) | payer MEDICARE, BC, SELFPAY | END | disposition home or self-care (01) | LOC: LABSPEC 10:41 | PROVIDERS: PCP Family Medicine; Visit Provider Nurse Practitioner Family | DX: R10.2 Pelvic and perineal pain (principal); N39.0 Urinary tract infection, site not specified | CPT/HCPCS: 87077; 87086; 87088; 87186 ==

== ENCOUNTER → 2023-02-11 | Outpatient (CLI) | payer MEDICARE, BC, SELFPAY ==
--- NOTE | 2023-02-11 | BRBX_PTH ---
PATIENT: ISABELLA CHAPMAN LOC: [facility] U#:[id number] AGE/SX: 77/F ROOM: RE02/11/[address]: Dr. Mindy Bullard MD : 1945 BED: DIS: 02/11/2023 SPEC #: [id number] RECD: 02/11/23 13:52 STATUS: MARKIE REQ #: [id number] CHANDANA: 02/11/23 00:[address]: Mindy Bullard DEPT: SURGICAL PATHOLOGY RECD BY: Dhruv Kevin ENTERED: 02/11/23 13:52 SP TYPE: BREAST BX OTHR DR: Dr. Star Ta MD Tissues: Left breast, NOS Procedures: Surgery Specimen Level IV HEADER OPERATION: Left breast stereotactic biopsy PRE-OP DIAGNOSIS: Left breast calcifications TISSUE SUBMITTED: Left breast core tissue MICROSCOPIC DIAGNOSIS Left breast, stereotactic core biopsy: Hyalinized fibroadenoma with focal calcifications. Focal vascular calcifications. Negative for atypia or malignancy. See comment. MICAELA:poonam 02/12/2023 COMMENT Correlation with clinical, radiologic findings and appropriate follow up are necessary. MICROSCOPIC DESCRIPTION Slides are reviewed. GROSS DESCRIPTION Received in fixative is one container labeled with the patient's name and designated left breast. The specimen consists of multiple elongated fragments of jay-yellow fibroadipose tissue that in aggregate measure 7.5 x 3.0 x 0.3 cm. The entire specimen is submitted in three cassettes. / SJ:poonam 02/12/2023 TC:1 Ischemic Time: 1 minute Fixation Time: 7.5 hours CPT: 89689
--- NOTE | 2023-02-11 12:38 | OP.PCM_ITS ---
Report of Operation Date of Procedure: 02/11/23 Pre-Operative Diagnosis: Left breast microcalcifications Post-Operative Diagnosis: Same Surgery/Procedure Performed:: Stereotactic left breast biopsy Surgeon: Mindy Bullard Type of Anesthesia: Local Specimen's removed: 1. Left breast microcalcifications Estimated Blood Loss (mL): 40 cc Description of Procedure: Procedure: Left stereotactic core biopsy Indications: 77 year-old female with microcalcifications in the lateral aspect of the left breast. Risk benefits were discussed the patient and she elected to proceed with stereotactic core biopsy with clip placement Description of procedure: Patient was brought into the mammography suite and laid prone on the stereotactic table. A timeout was completed verifying correct patient, procedure, site, specially, prior to beginning procedure. The left breast was prepped and draped in usual sterile fashion and using local anesthesia was obtained with 1% lidocaine with epi. Patient's left breast was positioned and placed into compression. Initial film showed calcifications are in the center of the compression paddle. 15? views were then taken. The calcifications were localized. The left breast was prepped draped in usual sterile fashion. An 8-gauge mammotome was set up according to the digital coordinates. The tract of the mammotome was anesthetized with local anesthesia and an incision was made with the 11 blade scalpel at the entry site. The mammotome was advanced to the prefire state. Pre-prior films were checked and verified. The mammotome was fired. Post fire films were also checked and verified. Biopsies were taken from 10:00 to 8:00. The specimen was x-rayed and a good representation of the calcifications were within the specimen. Mammotome clip was placed at the 12 o'clock position. The mammotome was removed from the breast. An additional films were taken which showed some of the calcifications were removed and a clip was in place. Pressure was held for hemostasis for about 15 minutes. Once hemostasis was assured the wound was dressed with Steri- Strips and OpSite. The patient tolerated the procedure well and was discharged from the mammography suite good condition. Complications none
== END | disposition home or self-care (01) ==
LOC: BIRAD 10:50
PROVIDERS: PCP Family Medicine; Referring Provider Surgery; Visit Provider Surgery
DX: R92.0 Mammographic microcalcification found on diagnostic imaging of breast (principal); D24.2 Benign neoplasm of left breast
CPT/HCPCS: 19081; 88305; J7050; A4648

== ENCOUNTER → 2023-02-19 | Outpatient (CLI) | payer MEDICARE, BC, SELFPAY | END | disposition home or self-care (01) | LOC: MTLAB 13:31 | PROVIDERS: PCP Family Medicine; Referring Provider Family Medicine; Visit Provider Family Medicine | DX: N39.0 Urinary tract infection, site not specified (principal) | CPT/HCPCS: 87077; 87086; 87088; 87186 ==

== ENCOUNTER → 2023-03-17 | Outpatient (CLI) | payer MEDICARE, BC, SELFPAY ==
--- NOTE | 2023-03-17 09:28 | MRI_ITS ---
EXAM: MR ABDOMEN AND PELVIS WITH INTRAVENOUS CONTRAST CLINICAL INDICATION: CHRON''S DISEASE OF LARGE INTESTINE TECHNIQUE: Multiplanar and multisequence MR images of the abdomen and pelvis with intravenous contrast. Magnetic field strength 1.5 T. CONTRAST: 15 cc of Clariscan IV. With oral contrast. COMPARISON: MR abdomen 09/27/2019. FINDINGS: LOWER THORAX: Unremarkable. No pleural effusion. ABDOMEN: LIVER: Unremarkable. Normal morphology. No focal mass. GALLBLADDER AND BILE DUCTS: Cholecystectomy. No intra- or extrahepatic biliary ductal dilation. PANCREAS: Unremarkable. No focal cystic or solid mass. SPLEEN: Unremarkable. Normal size without focal cystic or solid mass. ADRENALS: Unremarkable. No nodules. KIDNEYS AND URETERS: Unremarkable. Normal renal size and position. No hydronephrosis. STOMACH AND BOWEL: Status post total colectomy with right-sided ileostomy. Remaining small bowel appears normal. PELVIS: APPENDIX: See above. BLADDER: Unremarkable. OVARIES: Unremarkable as visualized. No mass or complex cyst. UTERUS/CERVIX: Unremarkable. No mass. Endometrial stripe is normal in thickness and appearance. ABDOMEN and PELVIS: INTRAPERITONEAL SPACE: Unremarkable. No ascites or other fluid collection. VASCULATURE: Unremarkable. Abdominal aorta is non-dilated. LYMPH NODES: No enlarged lymph nodes. MRI/Enterography Abd/Pel IMPRESSION: 1. Status post total colectomy with right-sided ileostomy. 2. Normal remaining small bowel. 3. Cholecystectomy. Electronically Signed: Mendoza Haas MD at 23:42 EST ,
--- OUTSIDE RECORDS SUMMARY | 2023-03-17 10:02 | XMS RPT_ITS | CCD ---
Author Name Unknown Address [address] [place] [address] Organization [facility] Care Team Providers Care Rn Lpn Lvn Name Role Phone DeFinis, Harumi Y Unavailable Unavailable DeFinis, Harumi Y Unavailable Unavailable PHYSICIAN, NONE Primary Care Physician Unavailab Jamie Hahn Primary Care Provider [phone] Jamie Ta Primary Care Provider Allergies Allergy Classification Reported Allergen(s) Allergy Type Date of Onset Reaction(s) Facility (8 sources) [facility]prine Drug Allergy 4 Other (See Comments) [facility] Work Phone: [phone] (12 sources) codeine; Translations: [CODEINE] Drug Allergy 4 GI upset [facility] Work Phone: [phone] (2 sources) Environmental allergy drug allergy 7 Gi upset [facility] Work Phone: [phone] (4 sources) NSAIDs drug allergy 7 GI upset [facility] Work Phone: [phone] (2 sources) ORENCIA, KINERET, CIMZIA, SIMPONI drug allergy 7 Patient can't take because of humira [facility] Work Phone: [phone] (6 sources) Naproxen Drug Allergy 2 Other (See Comments) [facility] Work Phone: Medications Current Medications Medication Drug Class(es) Dates Sig (Normalized) Sig (Original) acetaminophen 325 mg oral tablet (6 sources) Start: 4 acetaminophen (TYLENOL) 325 MG tablet as necessary 0 08/13/2003 Active cholecalciferol 0.05 mg oral capsule (6 sources) Vitamin D Cholecalciferol 50 MCG (1999) CAPS Take by mouth at bedtime Pt taking 0 Active cycloSPORINE 0.5 mg/ml ophthalmic suspension (6 sources) Calcineurin Inhibitor Immunosuppressant take 2 drop(s) into the eye(s) twice daily cycloSPORINE (RESTASIS) 0.05 % ophthalmic emulsion Place 2 drops into both eyes 2 times daily 0 Active FLUTICASONE PROPIONATE, INHAL, IN (6 sources) FLUTICASONE PROPIONATE, INHAL, IN Inhale into the lungs in the morning and at bedtime Pt took today 0 Active hydrOXYzine hydrochloride 25 mg oral tablet (6 sources) Antihistamine Start: 2 hydrOXYzine (ATARAX) 25 MG tablet TAKE 1-2 TABLET BEDTIME FOR SLEEP, RUNNY NOSE, ANXIETY 0 06/30/2021 Active ipratropium bromide 0.021 mg/actuat metered dose nasal spray (14 sources) Anticholinergic Start: 7 ipratropium (ATROVENT) 0.03 % nasal spray 2 sprays Every 6 hours 0 02/23/2017 Active Completed/Discontinued Medications Medication Drug Class(es) Dates Sig (Normalized) Sig (Original) ADALIMUMAB PNKT (2 sources) Tumor Necrosis Factor Chris Start: 7 HUMIRA PEN PNKT as directed ADALIMUMAB PNKT [id number] Leslee Ochoa PA-C budesonide 3 mg delayed release oral capsule (4 sources) Corticosteroid End: 7 take 1 tablet by mouth once daily ENTOCORT EC 3 MG CPEP One tablet by mouth daily BUDESONIDE [id number] Leslee Ochoa PA-C chlorpheniramine maleate 4 mg oral tablet (2 sources) Histamine-1 Receptor Antagonist Start: 7 take 1 tablet by mouth every four hours at bedtime as needed CHLORPHENIRAMINE MALEATE 4 MG TABS One tablet by mouth at bedtime and every 4 hours as needed CHLORPHENIRAMINE MALEATE [id number] Mary Aguirre RN esomeprazole 20 mg delayed release oral capsule (2 sources) Proton Pump Inhibitor take 1 tablet by mouth twice daily NEXIUM 20 MG CPDR One tablet by mouth twice daily ESOMEPRAZOLE MAGNESIUM [id number] Milla Rosario WILDLIFE PHOTOGRAPHER 60 actuat exenatide 0.01 mg/actuat pen injector (4 sources) GLP-1 Receptor Agonist End: 7 BYETTA 10 MCG PEN 10 MCG/0.04ML SOPN Subq injection twice daily EXENATIDE [id number] Mary Aguirre RN fexofenadine (4 sources) Histamine-1 Receptor Antagonist End: 7 HOLLAND ALLERGY 180 MG TABS as needed FEXOFENADINE HCL [id number] Leslee Ochoa PA-C Problems Active Problems Problem Classification Problem Date Documented Da te Episodic/Chronic Diabetes mellitus without complication (2 sources) Diabetes mellitus; Translations: [Type 2 diabetes mellitus with hyperglycemia] Onset: 04-20-2011 04-20-2011 Chronic Essential hypertension (2 sources) Hypertensive disorder; Translations: [Essential (primary) hypertension] Onset: 04-20-2011 04-20-2011 Chronic Heart valve disorders (2 sources) Nonrheumatic aortic (valve) stenosis; Translations: [Nonrheumatic aortic (valve) stenosis] Onset: 12-23-2016 12-23-2016 Chronic Immunity disorders (2 sources) Sarcoidosis; Translations: [Sarcoidosis, unspecified] Onset: 04-20-2011 04-20-2011 Chronic Regional enteritis and ulcerative colitis (7 sources) Crohn's disease; Translations: [Crohn's disease of colon] Onset: 04-20-2011 04-20-2011 Chronic Thyroid disorders (2 sources) Hypothyroidism; Translations: [Hypothyroidism, unspecified] Onset: 04-20-2011 04-20-2011 Chronic Unclassified (2 sources) Body mass index (BMI) 30.0-30.9, adult; Translations: [Body mass index (BMI) 30.0-30.9, adult] Onset: 12-23-2016 12-23-2016 Chronic Past or Other Problems Problem Classification Problem Date Documented Date Episodic/Chronic Mycoses (2 sources) Dermal mycosis; 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, unspecified] Onset: 09-12-2016 09-12-2016 Episodic Nonspecific chest pain (2 sources) Chest pain; Translations: [Chest pain, unspecified] Onset: 12-23-2016 12-23-2016 Episodic Other connective tissue disease (2 sources) Fibromyositis; Translations: [Fibromyalgia] Onset: 04-20-2011 04-20-2011 Episodic Unclassified (2 sources) Electrocardiogram abnormal; Translations: [Abnormal electrocardiogram [ECG] [EKG]] Onset: 12-23-2016 12-23-2016 Episodic Urinary tract infections (2 sources) Urinary tract infectious disease; Translations: [Urinary tract infection, site not specified] Onset: 09-12-2016 09-12-2016 Episodic Results Test Name Value Interpretation Reference Range Facil ity Vital Signs Date Time Vital Sign Value Performing Clinician Faci lity 08-21-2021 14:43-0400 Body height 165.1 cm Evaristo Acuna MD Work Phone: [facility] 08-21-2021 14:43-0400 Body mass index (BMI) [Ratio] 29.39 kg/m2 Evaristo Acuna MD Work Phone: [facility] 08-21-2021 14:43-0400 Body temperature 97.3 [degF] Evaristo Acuna MD Work Phone: [facility] 08-21-2021 14:43-0400 Body weight 80.11 kg Evaristo Acuna MD Work Phone: [facility] 08-21-2021 14:43-0400 Diastolic blood pressure 68 mm[Hg] Evaristo Acuna MD Work Phone: [facility] 08-21-2021 14:43-0400 Heart rate 78 /min Evaristo Acuna MD Work Phone: [facility] 08-21-2021 14:43-0400 Respiratory rate 20 /min Evaristo Acuna MD Work Phone: [facility] 08-21-2021 14:43-0400 SaO2% (BldA) [Mass fraction] 98 % Evaristo Acuna MD Work Phone: [facility] 08-21-2021 14:43-0400 Systolic blood pressure 153 mm[Hg] Evaristo Acuna MD Work Phone: [facility] 12-23-2016 14:01-0400 BMI (Body Mass Index) 30.34 kg/m2 [facility] Work Phone: 12-23-2016 14:01-0400 BP Diastolic 72 mm[Hg] Nelli Orozco [facility] Work Phone: 12-23-2016 14:01-0400 BP Systolic 168 mm[Hg] Nelli DeFinbetito [facility] Work Phone: 12-23-2016 14:01-0400 Height 167.64 cm Harcindi DeFinis [facility] Work Phone: 12-23-2016 14:01-0400 Pulse (Heart Rate) 88 /min Harcindi Scalixis [facility] Work Phone: 12-23-2016 14:01-0400 Respiratory Rate 18 /min Harcindi Scalixis [facility] Work Phone: 12-23-2016 14:01-0400 Weight 85.28 kg Kipocindi Scalixis [facility] Work Phone: 09-12-2016 08:58-0400 Body Temperature 98.1 [degF] Nelli Scalixbetito [facility] Work Phone: Encounters Encounter Date Encounter Type Care Provider Facility Start: 11-12-2021 End: 11-12-2021 Subsequent hospital visit by physician Meera Marie APRN - INTERNAL AUDIT CONSULTANT Work Phone: [facility] Start: 10-22-2021 End: 10-22-2021 Subsequent hospital visit by physician Meera Marie APRN - INTERNAL AUDIT CONSULTANT Work Phone: [facility] Start: 10-08-2021 End: 10-08-2021 Subsequent hospital visit by physician Meera Marie APRN - INTERNAL AUDIT CONSULTANT Work Phone: [facility] Start: 10-01-2021 End: 10-01-2021 Subsequent hospital visit by physician Meera Marie APRN - INTERNAL AUDIT CONSULTANT Work Phone: [facility] Start: 09-24-2021 End: 09-24-2021 Subsequent hospital visit by physician Meera Marie APRN - INTERNAL AUDIT CONSULTANT Work Phone: [facility] Start: 08-21-2021 End: 08-21-2021 Subsequent hospital visit by physician Evaristo Acuna MD Work Phone: [facility] Pre-Admit Testing Procedures Date Procedure Procedure Detail Performing Clinician Start: 08-21-2021 Antibody screen Evaristo Acuna MD Work Phone: Start: 08-21-2021 Blood typing serolog ic abo Tienjoaquim Do CAMBERING MACHINE OPERATOR - INTERNAL AUDIT CONSULTANT Work Phone: Start: 08-21-2021 Ecg routine ecg w/le ast 12 lds w/i&r Tien Hi CAMBERING MACHINE OPERATOR - INTERNAL AUDIT CONSULTANT Work Phone: Start: 12-23-2016 End: 12-29-2016 *Hepatic Function Panel Sal Barker Start: 12-23-2016 End: 12-23-2016 COLOR CONTROL SUPERVISOR Shaun Del Valle MD Start: 12-23-2016 End: 12-23-2016 Follow Up Appt 1 year Shaun Del Valle MD Start: 12-23-2016 End: 12-29-2016 Lipid 1996 panel - Serum or Plasma Shaun Del Valle MD Start: 05-07-2011 End: 05-08-2011 *BMP Charles Solorzano MD Plan of Treatment Date Care Activity Detail Author Start: 02-24-2026 DTaP/Tdap/Td vaccine (2 - Td or Tdap) DTaP/Tdap/Td vaccine (2 - Td or Tdap) [facility] Start: 11-06-2021 Influenza vaccination Flu vaccine (# 1) [facility] Start: 10-15-2021 End: 10-15-2021 Patient encounter procedure 10/15/2021 Office Visit Colon and Rectal Surgery Evaristo Aucna MD [address] [place] [address] [place] [id number] [facility] Start: 02-17-2021 Shingles vaccine (3 of 3) Miller gles vaccine (3 of 3) [facility] Start: 12-29-2017 End: 01-01-2017 *Hepatic Function Panel *Hepatic Function Panel [employer] Work Phone: Start: 12-29-2017 End: 01-01-2017 Lipid panel [AGGREGATE] *Lipid Profile CC PCP [facility] Work Phone: Start: 12-23-2017 End: 12-23-2017 Appointment Appointment [employer] Phone: Start: 12-24-2016 Pneumococcal 65+ yea rs Vaccine (2 - PCV) Pneumococcal 65+ years Vaccine (2 - PCV) [facility] Start: 12-23-2016 End: 12-29-2016 *Hepatic Function Panel *Hepatic Function Panel [employer] Work Phone: Start: 12-23-2016 End: 12-23-2016 COLOR CONTROL SUPERVISOR COLOR CONTROL SUPERVISOR [employer] Work Phone: Start: 12-23-2016 End: 12-23-2016 Follow Up Appt 1 year Follow Up Appt 1 year [employer] Work Phone: Start: 12-23-2016 End: 12-29-2016 Lipid panel [AGGREGATE] *Lipid Profile CC PCP [facility] Work Phone: Start: 05-07-2011 End: 05-08-2011 *BMP *BMP [employer] Work Phone: Start: 09-01-2002 Screening for osteoporosis DEXA (modify frequency per FRAX score) [facility] Start: 09-01-1997 Screening for malign ant neoplasm of breast Breast cancer screen [facility] Start: 09-01-1992 Screening for malign ant neoplasm of colon [facility] Start: 1987 Lipid panel Lipids [facility] Start: 09-01-1965 Hepatitis C screening Hepatitis C sc reen [facility] Start: 1959 Depression Screen Depression Screen [facility] Start: 09-01-1952 COVID-19 Vaccine (1) COVID-19 Vaccin e (1) [facility] Start: 03-03-1948 COVID-19 Vaccine (#1) COVID-19 Vacci ne (#1) [facility] Start: 1947 Annual Wellness Visi t (AWV) Annual Wellness Visit (AWV) [facility] EKG 12 Lead EKG 12 Lead ECG Routine 08/21/2021 3:51 PM EDT [employer] Work Phone: Patient Education URINARY%20TRAC TION%20INF ECTION%20IN%20OLDER%20AD [facility]LSATYA [facility] Work Phone: Payers Date Payer Category Payer Medicare MEDICARE MEDICAR E PART A AND B [id number] 2021-Present [phone] [place] [address] [id number] 2021 Unknown BCBS BCBS OUT OF STATE [id number] 2021-Present [address] [place] [address] [id number] Social History Date Type Detail Facility [facility] Sex Assigned At Female [facility] Start: 08-06-2021 Tobacco smoking stat [facility] Never smoked tobacco [employer] Work Phone: Start: 08-06-2021 Tobacco use and exposure Smokeless tobacco non-user [employer] Work Phone: Start: 08-21-2021 End: 10-15-2021 Alcohol intake Ex-drinker (finding) [employer] Work Phone: Start: 1945 Sex Assigned At Not on file [facility] Work Phone: Start: 08-11-2021 End: 08-28-2021 Exposure to SARS-CoV-2 (event) Not sure [employer] Work Phone: Start: 08-29-2021 History SDOH Alcohol Frequency 1 [employer] Work Phone: Discharge summary note 09-01-2021 Note Date & Type Note Facility 09-01-2021 Note Discharge Summary Francine Davis : 1945 ADMIT DATE: 08/28/2021 DISCHARGE DATE: 09/01/21 ATTENDING PHYSICIAN: Evaristo Acuna MD VISIT STATUS: Admission CODE STATUS: Full Code DISCHARGE DIAGNOSES: Principal Problem: Crohn's colitis, unspecified complication (HCC) Resolved Problems: * No resolved hospital problems. * HOSPITAL COURSE: Francine Davis is a 76 y.o. female who presented to [facility] on 08/28/2021 for scheduled laparoscopic total proctocolectomy and abdominal perineal resection with end ileostomy and ureteral stent placement in the setting of failed medical management of Crohn's disease. She underwent the above procedures per Dr. Acuna and Dr. Armando, respectively, on 08/28 and tolerated the procedures well. At the time of discharge patient's vital signs were within normal limits. Patient was voiding spontaneously, tolerating a diet, ambulating independently and having bowel function. Patient's pain was controlled with PO pain meds. Pt was discharged with instructions as follows. CONSULTANTS: Acute pain service SIGNIFICANT DIAGNOSTIC STUDIES: n/a DISCHARGE MEDICATIONS: Medication List CONTINUE taking these medications BIOFREEZE EX Cholecalciferol 50 MCG (1999) Caps cycloSPORINE 0.05 % ophthalmic emulsion Commonly known as: RESTASIS FLUTICASONE PROPIONATE (INHAL) IN hydrOXYzine HCl 25 MG tablet Commonly known as: ATARAX ipratropium 0.03 % nasal spray Commonly known as: ATROVENT lansoprazole 30 MG delayed release capsule Commonly known as: PREVACID LEVEMIR SC levothyroxine 150 MCG tablet Commonly known as: SYNTHROID losartan 100 MG tablet Commonly known as: COZAAR magnesium oxide 400 (240 Mg) MG tablet Commonly known as: MAG-OX melatonin 1 MG tablet * metFORMIN 500 MG extended release tablet Commonly known as: GLUCOPHAGE-XR * metFORMIN (OSM) 1000 MG extended release tablet Commonly known as: FORTAMET * pioglitazone 15 MG tablet Commonly known as: ACTOS * pioglitazone 30 MG tablet Commonly known as: ACTOS sertraline 50 MG tablet Commonly known as: ZOLOFT Tylenol 325 MG tablet Generic drug: acetaminophen Victoza 18 MG/3ML Sopn SC injection Generic drug: Liraglutide * This list has 4 medication(s) that are the same as other medications prescribed for you. Read the directions carefully, and ask your doctor or other care provider to review them with you. STOP taking these medications meclizine 25 MG tablet Commonly known as: ANTIVERT promethazine 12.5 MG tablet Commonly known as: PHENERGAN DIET: DIET GI SOFT; ACTIVITY: No heavy lifting. WOUND CARE: as directed DISPOSITION: Home FACILITY/HOME CARE AGENCY NAME: n/a Follow up with: Evaristo Acuna MD in 1-2 weeks PCP: JAMIE TA in 1-2 weeks SIGNED: Kojo Cisneros MD 09/01/2021, 7:30 AM [facility] Discharge instructions 08-21-2021 InstructionsAttachments Note Date & Type Note Facility 08-21-2021 Hospital Discharg e instructions Radha Zamora RN - 08/21/2021 You may use the free millinery department manager parking at the main entrance on [address] [place] [address], or the free parking in the [facility] parkin deck Surgery 08/28/21 at 1200 arrive at 10:00 Please bring your CPAP/BiPAP device, mask, and equipment with you on the day of surgery. Do not bring water for your machine, it will be provided. TAKE the following medications the morning of your surgery pt takes all meds at night, may take phenergan , antivert , if needed Do NOT take the following medications on the morning of surgery metformin, actos, victoza Take 19 units of levemir The night before You may take your prescription pain medication. You may take Tylenol for pain. NO Motrin, ibuprofen or Advil for 24 hours prior to surgery or longer if instructed by your surgeon. NO Aleve or Naprosyn for 3 days prior to surgery or longer if instructed by your surgeon. IF YOU TAKE BLOOD THINNERS OR ASPIRIN:pt not on aspirin Follow any instructions given to you by [employer] with an antibacterial soap such as Dial or Safeguard or shower kit provided to you before coming to the hospital. No makeup, lotion, powder, deodorant or body spays. No hair products. Remove all jewelry and leave it at home. Wear loose comfortable clothing to go home in. You may brush your teeth morning of surgery. Do not wear contacts day of surgery. No marijuana (THC), smoking or alcohol for 24 hours prior to surgery. Please arrange for a responsible adult to drive you home after your surgery and that there is a responsible adult with you for 24 hours post discharge. If you have specific questions, please call your surgeon. You will receive a call the day before your surgery to verify your arrival time and date. You will be asked to arrive at least two hours prior to your scheduled surgery time. Please bring your [facility] Surgical folder and medication list with you day of surgery. We encourage you to write down any questions you may have for the surgeon, anesthesiologist, or other members of the surgical team and bring it with you the day of surgery. Please bring photo ID and insurance information. The following attachments cannot be sent through Care Everywhere.Cystoscopy: Post-op (Chilean)Cystoscopy (Chilean)Ureteral Stents: General Info (Chilean)Ileostomy: Post-op (Chilean)Ileostomy: Pre-op (Chilean)documented in this encounter [facility] Work Phone: Evaluation + Plan note Note Date & Type Note Facility Evaluation + Plan note No data available for this section [facility] Hospital Discharge instructions Note Date & Type Note Facility Hospital Discharge instructions No data available for this section [facility] Summary Purpose Family History No Family History Records FoundNo Family History Records FoundNo Family History Records Found Advance Directives Documents on File Type Date Recorded Patient [employer] Marketing Expl anation ACP-Advance Directive 09/12/2021 9:46 AM ACP-Advance Directive 08/21/2021 Latest Code Status on File Code Status Date Activated Date Inactivated Comments Full Code 08/28/2021 9:48 PM 09/01/2021 2:49 PM Full Code 08/28/2021 9:50 AM 08/28/2021 9:46 PM Additional Source Comments INFORMATION SOURCE (unrecogn ized section and content) DATE CREATED AUTHOR AUTHOR'S ORGANIZ ATION 02/08/2021 [facility] ([place]) DATE CREATED AUTHOR AUTHOR'S ORGANIZ ATION 09/11/2021 [facility] Care Teams (unrecognized sec tion and content) Rn Lpn Lvn Relationship Specialty Start Date End Date [address] [place] [address] PCP - General Family Medicine 06/20/21 FOR RECORDS PERTAINING TO PATIENTS WHO ARE OR HAVE BEEN ENROLLED IN A CHEMICAL DEPENDENCY/SUBSTANCEABUSE PROGRAM, SOME INFORMATION MAY BE OMITTED. This clinical summary was aggregated from multiple sources. Caution should be exercised in using it in the provision of clinical care. This summary normalizes information from multiple sources, and as a consequence, information in this document may materially change the coding, format and clinical context of patient data. In addition, data may be omitted in some cases. CLINICAL DECISIONS SHOULD BE BASED ON THE PRIMARY CLINICAL RECORDS. [employer] provides no warranty or guarantee of the accuracy or completeness of information in this document.
[2023-03-17 10:14] LABS: CREATININE FINGERSTICK < 1.0 mg/dL (0.55-1.02); EGFR FINGERSTICK > 60.0000 mL/min (>60)
[2023-03-17 10:30] VITALS: BP 141/58; PULSE 81; RESP 16; O2SAT 100; BMI 27.4
[2023-03-17] MEDS: Glucagon 1 MG/ML Syringe IV (11:12)
[2023-03-17 11:38] VITALS: BP 147/60; PULSE 82; RESP 16; O2SAT 96
== END | disposition home or self-care (01) ==
LOC: MRI 09:20
PROVIDERS: PCP Family Medicine; Referring Provider Internal Medicine; Visit Provider Internal Medicine
DX: K50.10 Crohn's disease of large intestine without complications (principal)
CPT/HCPCS: 74183; 96374; A9575; A4216; J1610

== ENCOUNTER → 2023-04-02 | Outpatient (CLI) | payer MEDICARE, BC, SELFPAY ==
--- OUTSIDE RECORDS SUMMARY | 2023-04-02 15:35 | XMS RPT_ITS | CCD ---
Author Name Unknown Address [address] [place] [address] Organization [facility] Care Team Providers Care Counselor Aide Name Role Phone DeFinis, Harumi Y Unavailable Unavailable DeFinis, Harumi Y Unavailable Unavailable PHYSICIAN, NONE Primary Care Physician Unavailab Jamie Hahn Primary Care Provider Jamie Ta Primary Care Provider Allergies Allergy Classification Reported Allergen(s) Allergy Type Date of Onset Reaction(s) Facility (8 sources) azaTHIOprine Drug Allergy 4 Other (See Comments) [facility] Work Phone: [phone] (12 sources) codeine; Translations: [CODEINE] Drug Allergy 4 GI upset [facility] Work Phone: [phone] (2 sources) Environmental allergy drug allergy 7 Gi upset [facility] Work Phone: [phone] (4 sources) NSAIDs drug allergy 7 GI upset [facility] Work Phone: [phone] (2 sources) ORENCIA, KINERET, CIMZIA, SIMPONI drug allergy 7 Patient can't take because of humira [facility] Work Phone: [phone] (6 sources) Naproxen Drug Allergy 2 [...] HUMIRA PEN PNKT as directed ADALIMUMAB PNKT [id number] Leslee Ochoa PA-C budesonide 3 mg delayed release oral capsule (4 sources) Corticosteroid End: 7 take 1 tablet by mouth once daily ENTOCORT EC 3 MG CPEP One tablet by mouth daily BUDESONIDE [id number] Leslee Ochoa PA-C chlorpheniramine maleate 4 mg oral tablet (2 sources) Histamine-1 Receptor Antagonist Start: 7 take 1 tablet by mouth every four hours at bedtime as needed CHLORPHENIRAMINE MALEATE 4 MG TABS One tablet by mouth at bedtime and every 4 hours as needed CHLORPHENIRAMINE MALEATE [id number] Mary Aguirre RN esomeprazole 20 mg delayed release oral capsule (2 sources) Proton Pump Inhibitor take 1 tablet by mouth twice daily NEXIUM 20 MG CPDR One tablet by mouth twice daily ESOMEPRAZOLE MAGNESIUM [id number] Milla Rosario OCCUP THERAPIST 60 actuat exenatide 0.01 mg/actuat pen injector (4 sources) GLP-1 Receptor Agonist End: 7 BYETTA 10 MCG PEN 10 MCG/0.04ML SOPN Subq injection twice daily EXENATIDE [id number] Mary Aguirre RN fexofenadine (4 sources) Histamine-1 Receptor Antagonist End: 7 HOLLAND ALLERGY 180 MG TABS as needed FEXOFENADINE HCL [id number] Leslee Ochoa PA-C Problems Active Problems Problem [...] 165.1 cm Evaristo Acuna MD Work Phone: [facility] 08-21-2021 14:43-0400 Body mass index (BMI) [Ratio] 29.39 kg/m2 Evaristo Acuna MD Work Phone: [facility] 08-21-2021 14:43-0400 Body temperature 97.3 [degF] Evaristo Acuna MD Work Phone: [facility] 08-21-2021 14:43-0400 Body weight 80.11 kg Evaristo Acuna MD Work Phone: [facility] 08-21-2021 14:43-0400 Diastolic blood pressure 68 mm[Hg] Evaristo Acuna MD Work Phone: [facility] 08-21-2021 14:43-0400 Heart rate 78 /min Evaristo Acuna MD Work Phone: [facility] 08-21-2021 14:43-0400 Respiratory rate 20 /min Evaristo Acuna MD Work Phone: [facility] 08-21-2021 14:43-0400 SaO2% (BldA) [Mass fraction] 98 % Evaristo Acuna MD Work Phone: [facility] 08-21-2021 14:43-0400 Systolic blood pressure 153 mm[Hg] Evaristo Acuna MD Work Phone: [facility] 12-23-2016 14:01-0400 BMI (Body Mass Index) 30.34 kg/m2 [facility] Work Phone: 12-23-2016 14:01-0400 BP Diastolic 72 mm[Hg] Nelli Orozco [facility] Work Phone: 12-23-2016 14:01-0400 BP Systolic 168 mm[Hg] Nelli DeFinbetito [facility] Work Phone: 12-23-2016 14:01-0400 Height 167.64 cm Harcindi DeFinis [facility] Work Phone: 12-23-2016 14:01-0400 Pulse (Heart Rate) 88 /min Harcindi Involviois [facility] Work Phone: 12-23-2016 14:01-0400 Respiratory Rate 18 /min Harcindi Involviois [facility] Work Phone: 12-23-2016 14:01-0400 Weight 85.28 kg [email or web address] Involviois [facility] Work Phone: 09-12-2016 08:58-0400 Body Temperature 98.1 [degF] Nelli Involviobetito [facility] Work Phone: Encounters Encounter Date Encounter Type Care Provider Facility Start: 11-12-2021 End: 11-12-2021 Subsequent hospital visit by physician Meera Marie APRN - APPLICATION SOFTWARE DEVELOPER Work Phone: [facility] Start: 10-22-2021 End: 10-22-2021 Subsequent hospital visit by physician Meera Marie APRN - APPLICATION SOFTWARE DEVELOPER Work Phone: [facility] Start: 10-08-2021 End: 10-08-2021 Subsequent hospital visit by physician Meera Marie APRN - APPLICATION SOFTWARE DEVELOPER Work Phone: [facility] Start: 10-01-2021 End: 10-01-2021 Subsequent hospital visit by physician Meera Marie APRN - APPLICATION SOFTWARE DEVELOPER Work Phone: [facility] Start: 09-24-2021 End: 09-24-2021 Subsequent hospital visit by physician Meera Marie APRN - APPLICATION SOFTWARE DEVELOPER Work Phone: [facility] Start: 08-21-2021 End: 08-21-2021 Subsequent hospital visit by physician Evaristo Acuna MD Work Phone: [facility] Pre-Admit Testing Procedures Date Procedure Procedure Detail Performing Clinician Start: 08-21-2021 Antibody screen Evaristo Acuna MD Work Phone: Start: 08-21-2021 Blood typing serolog ic abo Tienjoaquim Do WELDER RAILCAR MECHANIC - APPLICATION SOFTWARE DEVELOPER Work Phone: Start: 08-21-2021 Ecg routine ecg w/le ast 12 lds w/i&r Tien Hi WELDER RAILCAR MECHANIC - APPLICATION SOFTWARE DEVELOPER Work Phone: Start: 12-23-2016 End: 12-29-2016 *Hepatic Function Panel [facility] Start: 12-23-2016 End: 12-23-2016 JEWELRY SALES Shaun Del Valle MD Start: 12-23-2016 End: [...] Office Visit Colon and Rectal Surgery Evaristo Acuna MD [address] [place] [address] [place] [address] [facility] Start: 02-17-2021 Shingles vaccine (3 of 3) Miller gles vaccine (3 of 3) [facility] Start: 12-29-2017 End: 01-01-2017 *Hepatic Function Panel *Hepatic Function Panel [employer] Work Phone: Start: 12-29-2017 End: 01-01-2017 Lipid panel [AGGREGATE] *Lipid Profile CC PCP [employer] Work Phone: Start: 12-23-2017 End: 12-23-2017 Appointment Appointment [facility] Phone: Start: 12-24-2016 Pneumococcal 65+ yea rs Vaccine (2 - PCV) Pneumococcal 65+ years Vaccine (2 - PCV) [facility] Start: 12-23-2016 End: 12-29-2016 *Hepatic Function Panel *Hepatic Function Panel [employer] Work Phone: Start: 12-23-2016 End: 12-23-2016 JEWELRY SALES JEWELRY SALES [employer] Work Phone: Start: 12-23-2016 End: 12-23-2016 Follow Up Appt 1 year Follow Up Appt 1 year [employer] [facility] Work Phone: Start: 12-23-2016 End: 12-29-2016 Lipid panel [AGGREGATE] *Lipid Profile CC PCP [employer] Work Phone: Start: 05-07-2011 End: 05-08-2011 *BMP *BMP [employer] Work Phone: Start: 09-01-2002 Screening for osteoporosis [...] Lead ECG Routine 08/21/2021 3:51 PM EDT [employer] Work Phone: Patient Education URINARY%20TRAC TION%20INF ECTION%20IN%20OLDER%20AD ULSATYA [facility] Work Phone: Payers Date Payer Category Payer Medicare MEDICARE MEDICAR E PART A AND B [id number] 2021-Present [phone] [place] [address] [id number] 2021 Unknown BCBS BCBS OUT OF STATE [id number] 2021-Present [address] [place] [address] [id number] Social History Date Type Detail Facility [facility] Sex Assigned At Female [facility] Start: 08-06-2021 Tobacco smoking stat [facility] Never smoked tobacco [employer] Work Phone: Start: 08-06-2021 Tobacco use and exposure Smokeless tobacco non-user [employer] Work Phone: Start: 08-21-2021 End: 10-15-2021 Alcohol intake Ex-drinker (finding) [employer] Work Phone: Start: 1945 Sex Assigned At Not on file S [facility] Work Phone: Start: 08-11-2021 End: 08-28-2021 Exposure to SARS-CoV-2 (event) Not sure [employer] Work Phone: Start: 08-29-2021 History SDOH Alcohol Frequency 1 [employer] Work Phone: Discharge summary note 09-01-2021 Note [...] a 76 y.o. female who presented to [facility] on 08/28/2021 for scheduled laparoscopic total proctocolectomy [...] SIGNED: Kojo Cisneros MD 09/01/2021, 7:30 AM [facility] Discharge instructions 08-21-2021 InstructionsAttachments Note Date & Type Note Facility 08-21-2021 Hospital Discharg e instructions Radha Zamora RN - 08/21/2021 You may use the free valet parking attendant parking at the main entrance on [address] [place] [address], or the free parking in the [facility] parkin deck Surgery 08/28/21 at 1200 [...] your scheduled surgery time. Please bring your [facility] Surgical folder and medication list with you day of surgery. We encourage you to write down any questions you may have for the surgeon, anesthesiologist, or other members of the surgical team and bring it with you the day of surgery. Please bring photo ID and insurance information. The following attachments cannot be sent through Care Everywhere.Cystoscopy: Post-op (Dutch)Cystoscopy (Dutch)Ureteral Stents: General Info (Dutch)Ileostomy: Post-op (Dutch)Ileostomy: Pre-op (Dutch)documented in this encounter [facility] Work Phone: Evaluation + Plan note Note Date & Type Note Facility Evaluation + Plan note No data available for this section [facility] Hospital Discharge instructions Note Date & Type Note Facility Hospital Discharge instructions No data available for this section [facility] Summary Purpose Family History No Family History Records FoundNo Family History Records FoundNo Family History Records Found Advance Directives Documents on File Type Date Recorded Patient Crm Marketing Analyst Expl anation ACP-Advance Directive 09/12/2021 9:46 AM ACP-Advance Directive 08/21/2021 Latest Code Status on File Code Status Date Activated Date Inactivated Comments Full Code 08/28/2021 9:48 PM 09/01/2021 2:49 PM Full Code 08/28/2021 9:50 AM 08/28/2021 9:46 PM Additional Source Comments INFORMATION SOURCE (unrecogn ized section and content) DATE CREATED AUTHOR AUTHOR'S ORGANIZ ATION 02/08/2021 [facility] ([place]) DATE CREATED AUTHOR AUTHOR'S ORGANIZ ATION 09/11/2021 [facility] Care Teams (unrecognized sec tion and content) Counselor Aide Relationship Specialty Start Date End Date Jamie [address] [place] [address] PCP - General Family Medicine 06/20/21 FOR [...] BE BASED ON THE PRIMARY CLINICAL RECORDS. [employer] provides no warranty or guarantee of the accuracy or completeness of information in this document.
[2023-04-02 17:45] LABS: Absolute Lymphocyte Count 2.04 X10^3/uL (0.83-4.51); Absolute Neutrophil Count 4.7 X10^3/uL (2.0-7.7); Basophil# 0.04 X10^3/uL; Basophil% 0.5 % (0-1); Eosinophil# 0.24 X10^3/uL; Eosinophils% 3.2 % (0-5); Hemoglobin 10.4 g/dL (12.0-15.0); Lymphocyte # 2.04 X10^3/ul (0.83-4.51); Mean Corp Hgb Conc 31.5 g/dL (32-36); Mean Corpuscular Hgb 28.1 pg (27.0-32.0); Mean Corpuscular Volume 89.2 fL (81-99); Mean Platelet Vol. 12.1 fl (6.2-12.0); Monocyte# 0.49 X10^3/uL; Monocyte% 6.5 % (0-10); NRBC Flagged by Analyzer 0 % (0-5); Neutrophil # 4.71 X10^3/uL (2.7-7.7); Neutrophil % 62.4 % (47-70); Platelet Count 184 K/mm3 (150-450); RBC Distribution Width CV 13.3 % (11.6-14.6); RBC Distribution Width SD 43.5 fl (35.1-43.9); White Blood Count 7.6 K/mm3 (4.4-11.0)
[2023-04-02 18:21] LABS: AST(SGOT) 34 U/L (15-37); Alanine Aminotransfer ALT/SGPT 44 U/L (13-56); Albumin, Serum 3.8 g/dL (3.2-5.0); Alkaline Phosphatase 100 U/L (45-117); Anion Gap 5 (5-15); BUN 26 mg/dL (7-18); BUN/Creat Ratio 18.4 RATIO (10-20); CRP < 2.90 mg/L (0.0-3.0); Calcium,Total 9.1 mg/dL (8.5-10.1); Chloride 110 mmol/L (98-107); Creatinine, Serum 1.41 mg/dL (0.55-1.02); EST Glomerular Filtration Rate 39 mL/min (>60); Est Glom Filt Rate - Afr Amer 47 mL/min (>60); Globulin 3.7 g/dL (2.2-4.2); Glucose 250 mg/dL (74-106); Potassium 4.7 mmol/L (3.5-5.1); Protein, Total 7.5 g/dL (6.4-8.2); Rheumatoid Factor < 10.0 IU/mL (<15); Sodium Level 135 mmol/L (136-145)
[2023-04-05 13:08] LABS: CCP IgG Antibodies 9 units (0-19)
[2023-04-05 14:08] LABS: ANTINUCLEAR ANTIBODIES DIRECT Negative (Negative)
== END | disposition home or self-care (01) ==
LOC: MTLAB 15:16
PROVIDERS: PCP Family Medicine; Referring Provider Family Medicine; Visit Provider Family Medicine
DX: M19.042 Primary osteoarthritis, left hand (principal); I35.0 Nonrheumatic aortic (valve) stenosis
CPT/HCPCS: 36415; 80053; 85025; 86038; 86140; 86200; 86431

== ENCOUNTER → 2023-04-28 | Outpatient (CLI) | payer MEDICARE, BC, SELFPAY ==
--- OUTSIDE RECORDS SUMMARY | 2023-04-28 20:18 | XMS RPT_ITS | CCD ---
Author Name Unknown Address [address] [place] [address] Organization [facility] Care Team Providers Care Physical Metallurgist Name Role Phone DeFinis, Harumi Y Unavailable Unavailable DeFinis, Harumi Y Unavailable Unavailable PHYSICIAN, NONE Primary Care Physician Unavailab Jamie Hahn Primary Care Provider Jamie Ta Primary Care Provider Allergies Allergy Classification Reported Allergen(s) Allergy Type Date of Onset Reaction(s) Facility (8 sources) azaTHIOprine Drug Allergy 4 Other (See Comments) [facility] Work Phone: [phone] (12 sources) codeine; Translations: [CODEINE] Drug Allergy 4 GI upset [facility] Work Phone: [phone] (2 sources) Environmental allergy drug allergy 7 Gi upset [facility] Work Phone: [phone] (4 sources) NSAIDs drug allergy 7 GI upset [facility] Work Phone: [phone] (2 sources) ORENCIA, KINERET, CIMZIA, SIMPONI drug allergy 7 Patient can't take because of humira [facility] Work Phone: [phone] (6 sources) Naproxen Drug Allergy 2 [...] HUMIRA PEN PNKT as directed ADALIMUMAB PNKT [id number] Leslee Ochoa PA-C budesonide 3 mg delayed release oral capsule (4 sources) Corticosteroid End: 7 take 1 tablet by mouth once daily ENTOCORT EC 3 MG CPEP One tablet by mouth daily BUDESONIDE [id number] Leslee Ochoa PA-C chlorpheniramine maleate 4 mg oral tablet (2 sources) Histamine-1 Receptor Antagonist Start: 7 take 1 tablet by mouth every four hours at bedtime as needed CHLORPHENIRAMINE MALEATE 4 MG TABS One tablet by mouth at bedtime and every 4 hours as needed CHLORPHENIRAMINE MALEATE [id number] Mary Aguirre RN esomeprazole 20 mg delayed release oral capsule (2 sources) Proton Pump Inhibitor take 1 tablet by mouth twice daily NEXIUM 20 MG CPDR One tablet by mouth twice daily ESOMEPRAZOLE MAGNESIUM [id number] Milla Rosario STRIPER SPRAY GUN 60 actuat exenatide 0.01 mg/actuat pen injector (4 sources) GLP-1 Receptor Agonist End: 7 BYETTA 10 MCG PEN 10 MCG/0.04ML SOPN Subq injection twice daily EXENATIDE [id number] Mary Aguirre RN fexofenadine (4 sources) Histamine-1 Receptor Antagonist End: 7 HOLLAND ALLERGY 180 MG TABS as needed FEXOFENADINE HCL [id number] Leslee Ochoa PA-C Problems Active Problems Problem [...] 165.1 cm Evaristo Acuna MD Work Phone: [facility] 08-21-2021 14:43-0400 Body mass index (BMI) [Ratio] 29.39 kg/m2 Evaristo Acuna MD Work Phone: [facility] 08-21-2021 14:43-0400 Body temperature 97.3 [degF] Evaristo Acuna MD Work Phone: [facility] 08-21-2021 14:43-0400 Body weight 80.11 kg Evaristo Acuna MD Work Phone: [facility] 08-21-2021 14:43-0400 Diastolic blood pressure 68 mm[Hg] Evaristo Acuna MD Work Phone: [facility] 08-21-2021 14:43-0400 Heart rate 78 /min Evaristo Acuna MD Work Phone: [facility] 08-21-2021 14:43-0400 Respiratory rate 20 /min Evaristo Acuna MD Work Phone: [facility] 08-21-2021 14:43-0400 SaO2% (BldA) [Mass fraction] 98 % Evaristo Acuna MD Work Phone: [facility] 08-21-2021 14:43-0400 Systolic blood pressure 153 mm[Hg] Evaristo Acuna MD Work Phone: [facility] 12-23-2016 14:01-0400 BMI (Body Mass Index) 30.34 kg/m2 [facility] Work Phone: 12-23-2016 14:01-0400 BP Diastolic 72 mm[Hg] Nelli Orozco [facility] Work Phone: 12-23-2016 14:01-0400 BP Systolic 168 mm[Hg] Nelli DeFinbetito [facility] Work Phone: 12-23-2016 14:01-0400 Height 167.64 cm Harcindi DeFinis [facility] Work Phone: 12-23-2016 14:01-0400 Pulse (Heart Rate) 88 /min Harcindi SpunLiveis [facility] Work Phone: 12-23-2016 14:01-0400 Respiratory Rate 18 /min Harcindi SpunLiveis [facility] Work Phone: 12-23-2016 14:01-0400 Weight 85.28 kg Episencialcindi Spun[employer]is [facility] Work Phone: 09-12-2016 08:58-0400 Body Temperature 98.1 [degF] Nelli SpunLivebetito [facility] Work Phone: Encounters Encounter Date Encounter Type Care Provider Facility Start: 11-12-2021 End: 11-12-2021 Subsequent hospital visit by physician Meera Marie APRN - HAND VIOLIN MAKER Work Phone: [facility] Start: 10-22-2021 End: 10-22-2021 Subsequent hospital visit by physician Meera Marie APRN - HAND VIOLIN MAKER Work Phone: [facility] Start: 10-08-2021 End: 10-08-2021 Subsequent hospital visit by physician Meera Marie APRN - HAND VIOLIN MAKER Work Phone: [facility] Start: 10-01-2021 End: 10-01-2021 Subsequent hospital visit by physician Meera Marie APRN - HAND VIOLIN MAKER Work Phone: [facility] Start: 09-24-2021 End: 09-24-2021 Subsequent hospital visit by physician Meera Marie APRN - HAND VIOLIN MAKER Work Phone: [facility] Start: 08-21-2021 End: 08-21-2021 Subsequent hospital visit by physician Evaristo Acuna MD Work Phone: [facility] Pre-Admit Testing Procedures Date Procedure Procedure Detail Performing Clinician Start: 08-21-2021 Antibody screen Evaristo Acuna MD Work Phone: Start: 08-21-2021 Blood typing serolog ic abo Tienjoaquim Do FASHION CONSULTANT SALES - HAND VIOLIN MAKER Work Phone: Start: 08-21-2021 Ecg routine ecg w/le ast 12 lds w/i&r Tien Hi FASHION CONSULTANT SALES - HAND VIOLIN MAKER Work Phone: Start: 12-23-2016 End: 12-29-2016 *Hepatic Function Panel Sal [facility] Start: 12-23-2016 End: 12-23-2016 [employer]NS[employer] Shaun Del Valle MD Start: 12-23-2016 End: [...] Colon and Rectal Surgery Evaristo Acuna MD [address] [place] [address] [place] [address] [facility] Start: 02-17-2021 Shingles vaccine (3 of 3) Miller gles vaccine (3 of 3) [facility] Start: 12-29-2017 End: 01-01-2017 *Hepatic Function Panel *Hepatic Function Panel [employer] Work Phone: Start: 12-29-2017 End: 01-01-2017 Lipid panel [AGGREGATE] *Lipid Profile CC PCP [employer] Work Phone: Start: 12-23-2017 End: 12-23-2017 Appointment Appointment [facility] Phone: Start: 12-24-2016 Pneumococcal 65+ yea rs Vaccine (2 - PCV) Pneumococcal 65+ years Vaccine (2 - PCV) [facility] Start: 12-23-2016 End: 12-29-2016 *Hepatic Function Panel *Hepatic Function Panel [facility] Work Phone: Start: 12-23-2016 End: 12-23-2016 [employer] MERCH[employer]NSH[employer] Work Phone: Start: 12-23-2016 End: 12-23-2016 Follow Up Appt 1 year Follow Up Appt 1 year [employer] [facility] Work Phone: Start: 12-23-2016 End: 12-29-2016 Lipid panel [AGGREGATE] *Lipid Profile CC PCP [facility] Work Phone: Start: 05-07-2011 End: 05-08-2011 *BMP *BMP [facility] Work Phone: Start: 09-01-2002 Screening for osteoporosis [...] Lead ECG Routine 08/21/2021 3:51 PM EDT [employer] Work Phone: Patient Education URINARY%20TRAC TION%20INF ECTION%20IN%20OLDER%20AD ULSATYA [facility] Work Phone: Payers Date Payer Category Payer Medicare MEDICARE MEDICAR E PART A AND B [id number] 2021-Present [phone] [place] [address] [id number] 2021 Unknown BCBS BCBS OUT OF STATE [id number] 2021-Present [address] [place] [address] [id number] Social History Date Type Detail Facility [facility] Sex Assigned At Female [facility] Start: 08-06-2021 Tobacco smoking stat [facility] Never smoked tobacco [employer] Work Phone: Start: 08-06-2021 Tobacco use and exposure Smokeless tobacco non-user [employer] Work Phone: Start: 08-21-2021 End: 10-15-2021 Alcohol intake Ex-drinker (finding) [employer] Work Phone: Start: 1945 Sex Assigned At Not on file S [facility] Work Phone: Start: 08-11-2021 End: 08-28-2021 Exposure to SARS-CoV-2 (event) Not sure [email or web address] Work Phone: Start: 08-29-2021 History SDOH Alcohol Frequency 1 [employer] Work Phone: Discharge summary note 09-01-2021 Note [...] a 76 y.o. female who presented to [facility] on 08/28/2021 for scheduled laparoscopic total [...] - 08/21/2021 You may use the free vehicle maintenance supervisor parking at the main entrance on [address] [place] [address], or the free parking in the [facility] parkin deck Surgery 08/28/21 at 1200 arrive [...] your scheduled surgery time. Please bring your [facility] folder and medication list with you day of surgery. We encourage you to write down any questions you may have for the surgeon, anesthesiologist, or other members of the surgical team and bring it with you the day of surgery. Please bring photo ID and insurance information. The following attachments cannot be sent through Care Everywhere.Cystoscopy: Post-op (Tongan)Cystoscopy (Tongan)Ureteral Stents: General Info (Tongan)Ileostomy: Post-op (Tongan)Ileostomy: Pre-op (Tongan)documented in this encounter [facility] Work Phone: Evaluation + Plan note Note Date & Type Note Facility Evaluation + Plan note No data available for this section [facility] Hospital Discharge instructions Note Date & Type Note Facility Hospital Discharge instructions No data available for this section [facility] Summary Purpose Family History No Family History Records FoundNo Family History Records FoundNo Family History Records Found Advance Directives Documents on File Type Date Recorded Patient Malt House Operator Expl anation ACP-Advance Directive 09/12/2021 9:46 AM ACP-Advance Directive 08/21/2021 Latest Code Status on File Code Status Date Activated Date Inactivated Comments Full Code 08/28/2021 9:48 PM 09/01/2021 2:49 PM Full Code 08/28/2021 9:50 AM 08/28/2021 9:46 PM Additional Source Comments INFORMATION SOURCE (unrecogn ized section and content) DATE CREATED AUTHOR AUTHOR'S ORGANIZ ATION 02/08/2021 [facility] ([place]) DATE CREATED AUTHOR AUTHOR'S ORGANIZ ATION 09/11/2021 [facility] Care Teams (unrecognized sec tion and content) Physical Metallurgist Relationship Specialty Start Date End Date Jamie [address] [place] [address] PCP - General Family Medicine 06/20/21 FOR [...] BE BASED ON THE PRIMARY CLINICAL RECORDS. [employer] provides no warranty or guarantee of the accuracy or completeness of information in this document.
== END | disposition home or self-care (01) ==
LOC: SL 19:49
PROVIDERS: PCP Family Medicine; Visit Provider Nurse Practitioner Acute Care
DX: G47.33 Obstructive sleep apnea (adult) (pediatric) (principal)
CPT/HCPCS: 95810

== ENCOUNTER → 2023-05-12 | Outpatient (CLI) | payer MEDICARE, BC, SELFPAY ==
--- NOTE | 2023-05-12 12:38 | ECHOD_ITS ---
Reason For Study: Procedure This was a 2D Doppler, Color Flow transthoracic echocardiogram. Exam performed in department. Left Ventricle Normal LV size. Moderate concentric left ventricular hypertrophy. Left ventricular systolic function is normal. The estimated ejection fraction is 70 %. Stage 1 diastolic dysfunction. No regional wall motion abnormalities noted. Right Ventricle Normal RV size. Normal systolic function. Atria Normal left atrium. Normal right atrium. Mitral Valve There is moderate mitral annular calcification. Tricuspid Valve Normal tricuspid valve. Mild tricuspid valve insufficiency. Pulmonary artery systolic pressure is 20 mmHg. Aortic Valve Trisinus/trileaflet aortic valve. Moderate focal aortic valve calcification. Peak aortic valve gradient 55 mmHg. Mean aortic valve gradient 36 mmHg. Moderate to severe aortic stenosis is noted. Mild (1+) aortic valve insufficiency. Pulmonic Valve Normal pulmonic valve. Great Vessels Normal aortic root. The pulmonary artery is normal size. Normal inferior vena cava. Pericardium/Pleural No pericardial effusion. MMode/2D Measurements & Calculations LVIDd: 3.7 cm IVSd: 1.3 cm LVOT diam: 2.0 cm LVIDs: 2.3 cm LVPWd: 1.3 cm LVOT area: 3.2 cm2 RVDd: 2.9 cm FS: 36.8 % Ao root diam: 3.2 cm LAV(MOD-bp): 32.7 ml LVAd ap4: 18.1 cm2 LAV(MOD-bp) Indexed: 17.8 ml/m2 LVLd ap4: 7.3 cm LAV(MOD-sp2): 41.8 ml EDV(MOD-sp4): 37.5 ml LAV(MOD-sp4): 25.5 ml EDV(sp4-el): 37.9 ml LVAs ap4: 8.9 cm2 LVLs ap4: 6.4 cm ESV(MOD-sp4): 10.7 ml ESV(sp4-el): 10.5 ml EF(MOD-sp4): 71.5 % EF(sp4-el): 72.2 % SV(MOD-sp4): 26.8 ml SV(sp4-el): 27.4 ml LA A4 area: 12.2 cm2 LA dimension(2D): 3.9 cm RA A4 area: 9.7 cm2 TAPSE: 2.0 cm Time Measurements MV dec time: 0.29 sec Doppler Measurements & Calculations MV E max garret: 81.2 cm/sec Lat Peak E' Garret: 5.6 cm/sec Med Peak E' Garret: 6.0 cm/sec MV A max garret: 120.6 cm/sec E/E' lat: 14.4 E/E' med: 13.5 MV E/A: 0.67 MV V2 max: 136.5 cm/sec Ao V2 max: 370.1 cm/sec MV max P.5 mmHg MV dec slope: 275.8 cm/sec2 Ao max P.8 mmHg MV V2 mean: 82.8 cm/sec Ao V2 mean: 293.5 cm/sec MV mean P.1 mmHg Ao mean P.4 mmHg MV V2 VTI: 30.9 cm Ao V2 VTI: 80.6 cm AV (velocity ratio): 0.33 MVA(VTI): 2.8 cm2 KAMLESH(I,D): 1.1 cm2 KAMLESH(V,D): 0.97 cm2 AI max garret: 315.0 cm/sec LV V1 max: 111.1 cm/sec SV(LVOT): 85.8 ml AI max P.7 mmHg LV V1 max P.0 mmHg LV V1 mean P.4 mmHg AI dec slope: 167.1 cm/sec2 LV V1 mean: 89.0 cm/sec AI P1/2t: 552.2 msec LV V1 VTI: 26.4 cm PA V2 max: 86.4 cm/sec TR max garret: 210.6 cm/sec TR max P.7 mmHg ECHO/Echo Complete Interpretation Summary Normal LV size. Moderate concentric left ventricular hypertrophy. Left ventricular systolic function is normal. The estimated ejection fraction is 70 %. Moderate focal aortic valve calcification. Stage 1 diastolic dysfunction. Mild (1+) aortic valve insufficiency. Mean aortic valve gradient 36 mmHg. Moderate to severe aortic stenosis is noted Compared to the previous echocardiogram the aortic valve gradients have increas ed. Ordering Physician: Hattie Borja Referring Physician: Star Ta Performed By: Karen Galeano, LORRIE, RVT
== END | disposition home or self-care (01) ==
PROVIDERS: PCP Family Medicine; Referring Provider Nurse Practitioner Gerontology; Visit Provider Nurse Practitioner Gerontology
DX: I35.0 Nonrheumatic aortic (valve) stenosis (principal)
CPT/HCPCS: 93306

== ENCOUNTER → 2023-05-21 | Outpatient (CLI) | payer MEDICARE, BC, SELFPAY ==
--- NOTE | 2023-05-21 10:43 | RAD_ITS ---
STUDY: X-RAY CHEST REASON FOR EXAM: Female, 77 years old. Aortic Valve stenosis TECHNIQUE: PA and lateral views of the chest. COMPARISON: 02/26/2013 FINDINGS: Status post anterior cervical discectomy and fusion lower cervical spine. The lungs are clear and expanded. There is no demonstrated pleural abnormality. Normal size heart. Normal mediastinum and elton. Normal visualized pulmonary arteries. Normal visualized aortic arch and descending thoracic aorta. There is a dextroscoliosis of the thoracic spine. Normal visualized ribs, clavicles, and shoulders. There is no demonstrated abnormality of the visualized soft tissue structures of the upper abdomen. RAD/Chest PA and Lateral IMPRESSION: No active disease. Electronically Signed: Andrea Amin MD at 23:27 EDT ,
[2023-05-21 11:19] LABS: Absolute Lymphocyte Count 2.28 X10^3/uL (0.83-4.51); Absolute Neutrophil Count 4.3 X10^3/uL (2.0-7.7); Basophil# 0.03 X10^3/uL; Basophil% 0.4 % (0-1); Eosinophil# 0.25 X10^3/uL; Eosinophils% 3.4 % (0-5); Hemoglobin 10.2 g/dL (12.0-15.0); Lymphocyte # 2.28 X10^3/ul (0.83-4.51); Lymphocyte % 31.1 % (19-41); Mean Corp Hgb Conc 32.9 g/dL (32-36); Mean Corpuscular Hgb 29.4 pg (27.0-32.0); Mean Corpuscular Volume 89.3 fL (81-99); Mean Platelet Vol. 11.1 fl (6.2-12.0); Monocyte# 0.45 X10^3/uL; Monocyte% 6.1 % (0-10); NRBC Flagged by Analyzer 0 % (0-5); Neutrophil # 4.29 X10^3/uL (2.7-7.7); Neutrophil % 58.7 % (47-70); Platelet Count 194 K/mm3 (150-450); RBC Distribution Width CV 13.6 % (11.6-14.6); RBC Distribution Width SD 44.6 fl (35.1-43.9); Red Blood Count 3.47 M/mm3 (4.2-5.4); White Blood Count 7.3 K/mm3 (4.4-11.0)
--- OUTSIDE RECORDS SUMMARY | 2023-05-21 11:38 | XMS RPT_ITS | CCD ---
Author Name Unknown Address [address] [place] [address] Organization [facility] Care Team Providers Care [employer] Name Role Phone DeFinis, Harumi Y Unavailable Unavailable DeFinis, Harumi Y Unavailable Unavailable PHYSICIAN, NONE Primary Care Physician Unavailab Jamie Hahn Primary Care Provider Jamie Ta Primary Care Provider [phone] Allergies Allergy Classification Reported Allergen(s) Allergy Type Date of Onset Reaction(s) Facility (8 sources) azaTHIOprine Drug Allergy 4 Other (See Comments) [facility] Work Phone: [phone] (12 sources) codeine; Translations: [CODEINE] Drug Allergy 4 GI upset [facility] Work Phone: [phone] (2 sources) Environmental allergy drug allergy 7 Gi upset [facility] Work Phone: [phone] (4 sources) NSAIDs drug allergy 7 GI upset [facility] Work Phone: [phone] (2 sources) ORENCIA, KINERET, CIMZIA, SIMPONI drug allergy 7 Patient can't take because of humira [facility] Work Phone: [phone] (6 sources) Naproxen Drug Allergy 2 [...] HUMIRA PEN PNKT as directed ADALIMUMAB PNKT [id number] Leslee Ochoa PA-C budesonide 3 mg delayed release oral capsule (4 sources) Corticosteroid End: 7 take 1 tablet by mouth once daily ENTOCORT EC 3 MG CPEP One tablet by mouth daily BUDESONIDE [id number] Leslee Ochoa PA-C chlorpheniramine maleate 4 mg oral tablet (2 sources) Histamine-1 Receptor Antagonist Start: 7 take 1 tablet by mouth every four hours at bedtime as needed CHLORPHENIRAMINE MALEATE 4 MG TABS One tablet by mouth at bedtime and every 4 hours as needed CHLORPHENIRAMINE MALEATE [id number] Mary Aguirre RN esomeprazole 20 mg delayed release oral capsule (2 sources) Proton Pump Inhibitor take 1 tablet by mouth twice daily NEXIUM 20 MG CPDR One tablet by mouth twice daily ESOMEPRAZOLE MAGNESIUM [id number] Milla Rosario AQUATIC INSTRUCTOR 60 actuat exenatide 0.01 mg/actuat pen injector (4 sources) GLP-1 Receptor Agonist End: 7 BYETTA 10 MCG PEN 10 MCG/0.04ML SOPN Subq injection twice daily EXENATIDE [id number] Mary Aguirre RN fexofenadine (4 sources) Histamine-1 Receptor Antagonist End: 7 HOLLAND ALLERGY 180 MG TABS as needed FEXOFENADINE HCL [id number] Leslee Ochoa PA-C Problems Active Problems Problem [...] 165.1 cm Evaristo Acuna MD Work Phone: [facility] 08-21-2021 14:43-0400 Body mass index (BMI) [Ratio] 29.39 kg/m2 Evaristo Acuna MD Work Phone: [facility] 08-21-2021 14:43-0400 Body temperature 97.3 [degF] Evaristo Acuna MD Work Phone: [facility] 08-21-2021 14:43-0400 Body weight 80.11 kg Evaristo Acuna MD Work Phone: [facility] 08-21-2021 14:43-0400 Diastolic blood pressure 68 mm[Hg] Evaristo Acuna MD Work Phone: [facility] 08-21-2021 14:43-0400 Heart rate 78 /min Evaristo Acuna MD Work Phone: [facility] 08-21-2021 14:43-0400 Respiratory rate 20 /min Evaristo Acuna MD Work Phone: [facility] 08-21-2021 14:43-0400 SaO2% (BldA) [Mass fraction] 98 % Evaristo Acuna MD Work Phone: [facility] 08-21-2021 14:43-0400 Systolic blood pressure 153 mm[Hg] Evaristo Acuna MD Work Phone: [facility] 12-23-2016 14:01-0400 BMI (Body Mass Index) 30.34 kg/m2 [facility] Work Phone: 12-23-2016 14:01-0400 BP Diastolic 72 mm[Hg] Nelli Orozco [facility] Work Phone: 12-23-2016 14:01-0400 BP Systolic 168 mm[Hg] Nelli DeFinbetito [facility] Work Phone: 12-23-2016 14:01-0400 Height 167.64 cm Harcindi DeFinis [facility] Work Phone: 12-23-2016 14:01-0400 Pulse (Heart Rate) 88 /min [employer]arcindi [employer] [facility] Work Phone: 12-23-2016 14:01-0400 Respiratory Rate 18 /min [employer] [facility] Work Phone: 12-23-2016 14:01-0400 Weight 85.28 kg eduplanet KKcindi [employer] [facility] Work Phone: 09-12-2016 08:58-0400 Body Temperature 98.1 [degF] Nelli Dg [employer]betito [facility] Work Phone: Encounters Encounter Date Encounter Type Care Provider Facility Start: 11-12-2021 End: 11-12-2021 Subsequent hospital visit by physician Meera Marie APRN - RECORDER HELPER [employer] Work Phone: [facility] Start: 10-22-2021 End: 10-22-2021 Subsequent hospital visit by physician Meera Marie APRN - RECORDER HELPER [employer] Work Phone: [facility] Start: 10-08-2021 End: 10-08-2021 Subsequent hospital visit by physician Meera Marie APRN - RECORDER HELPER [employer] Work Phone: [facility] Start: 10-01-2021 End: 10-01-2021 Subsequent hospital visit by physician Meera Marie APRN - RECORDER HELPER [employer] Work Phone: [facility] Start: 09-24-2021 End: 09-24-2021 Subsequent hospital visit by physician Meera Marie APRN - RECORDER HELPER [employer] Work Phone: [facility] Start: 08-21-2021 End: 08-21-2021 Subsequent hospital visit by physician Evaristo Acuna MD Work Phone: [facility] Pre-Admit Testing Procedures Date Procedure Procedure Detail Performing Clinician Start: 08-21-2021 Antibody screen Evaristo Aucna MD Work Phone: Start: 08-21-2021 Blood typing serolog ic abo Tienjoaquim Do REIMBURSEMENT SPECIALIST - RECORDER HELPER [employer] Work Phone: Start: 08-21-2021 Ecg routine ecg w/le ast 12 lds w/i&r Tien Hi REIMBURSEMENT SPECIALIST - RECORDER HELPER [employer] Work Phone: Start: 12-23-2016 End: 12-29-2016 *Hepatic Function Panel Sal Barker Start: 12-23-2016 End: 12-23-2016 ESTIMATOR BINDING Shaun Del Valle MD Start: 12-23-2016 End: [...] Colon and Rectal Surgery Evaristo Acuna MD [address] [place] [address] [place] [id number] [facility] Start: 02-17-2021 Shingles vaccine (3 of 3) Miller gles vaccine (3 of 3) [facility] Start: 12-29-2017 End: 01-01-2017 *Hepatic Function Panel *Hepatic Function Panel [facility] Work Phone: Start: 12-29-2017 End: 01-01-2017 Lipid panel [AGGREGATE] *Lipid Profile [facility] Work Phone: Start: 12-23-2017 End: 12-23-2017 Appointment Appointment [facility] Phone: Start: 12-24-2016 Pneumococcal 65+ yea rs Vaccine (2 - PCV) Pneumococcal 65+ years Vaccine (2 - PCV) [facility] Start: 12-23-2016 End: 12-29-2016 *Hepatic Function Panel *Hepatic Function Panel [facility] Work Phone: Start: 12-23-2016 End: 12-23-2016 ESTIMATOR BINDING ESTIMATOR BINDING [facility] Work Phone: Start: 12-23-2016 End: 12-23-2016 Follow Up Appt 1 year Follow Up Appt 1 year [employer] [facility] Work Phone: Start: 12-23-2016 End: 12-29-2016 Lipid panel [AGGREGATE] *Lipid Profile CC [facility] Work Phone: Start: 05-07-2011 End: 05-08-2011 *BMP *BMP [facility] Work Phone: Start: 09-01-2002 Screening for osteoporosis [...] Lead ECG Routine 08/21/2021 3:51 PM EDT [employer] Work Phone: Patient Education URINARY%20TRAC TION%20INF ECTION%20IN%20OLDER%20AD ULSATYA [facility] Work Phone: Payers Date Payer Category Payer Medicare MEDICARE MEDICAR E PART A AND B [id number] 2021-Present [phone] [place] [address] [id number] 2021 Unknown BCBS BCBS OUT OF STATE [id number] 2021-Present [address] [place] [address] [id number] Social History Date Type Detail Facility [facility] Sex Assigned At Female [facility] Start: 08-06-2021 Tobacco smoking stat [facility] Never smoked tobacco [employer] Work Phone: Start: 08-06-2021 Tobacco use and exposure Smokeless tobacco non-user [employer] Work Phone: Start: 08-21-2021 End: 10-15-2021 Alcohol intake Ex-drinker (finding) [employer] Work Phone: Start: 1945 Sex Assigned At Not on file S [facility] Work Phone: Start: 08-11-2021 End: 08-28-2021 Exposure to SARS-CoV-2 (event) Not sure [employer] Work Phone: Start: 08-29-2021 History SDOH Alcohol Frequency 1 [employer] Work Phone: Discharge summary note 09-01-2021 Note [...] a 76 y.o. female who presented to [facility] on 08/28/2021 for scheduled laparoscopic total proctocolectomy [...] SIGNED: Kojo Cisneros MD 09/01/2021, 7:30 AM [facility] Hospital Discharge instructions 08-21-2021 InstructionsAttachments Note Date & Type Note Facility 08-21-2021 Hospital Discharg e instructions Radha Zamora RN - 08/21/2021 You may use the free auditing clerk parking at the main entrance on [address] [place] [address], or the free parking in the [facility] parkin deck Surgery 08/28/21 at [...] your scheduled surgery time. Please bring your [facility] Surgical folder and medication list with you day of surgery. We encourage you to write down any questions you may have for the surgeon, anesthesiologist, or other members of the surgical team and bring it with you the day of surgery. Please bring photo ID and insurance information. The following attachments cannot be sent through Care Everywhere.Cystoscopy: Post-op (Eritrean)Cystoscopy (Eritrean)Ureteral Stents: General Info (Eritrean)Ileostomy: Post-op (Eritrean)Ileostomy: Pre-op (Eritrean)documented in this encounter [facility] Work Phone: Evaluation + Plan note Note Date & Type Note Facility Evaluation + Plan note No data available for this section [facility] Hospital Discharge instructions Note Date & Type Note Facility Hospital Discharge instructions No data available for this section [facility] Summary Purpose Family History No Family History Records FoundNo Family History Records FoundNo Family History Records Found Advance Directives Documents on File Type Date Recorded Patient [employer] 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 Development Manager Expl anation ACP-Advance Directive 09/12/2021 9:46 AM ACP-Advance Directive 08/21/2021 Latest Code Status on File Code Status Date Activated Date Inactivated Comments Full Code 08/28/2021 9:48 PM 09/01/2021 2:49 PM Full Code 08/28/2021 9:50 AM 08/28/2021 9:46 PM Additional Source Comments INFORMATION SOURCE (unrecogn ized section and content) DATE CREATED AUTHOR AUTHOR'S ORGANIZ ATION 02/08/2021 [facility] ([place]) DATE CREATED AUTHOR AUTHOR'S ORGANIZ ATION 09/11/2021 [facility] Care Teams (unrecognized sec tion and content) [employer] Operator Relationship Specialty Start Date End Date [address] [place] [address] PCP - General Family Medicine 06/20/21 FOR [...] BE BASED ON THE PRIMARY CLINICAL RECORDS. [employer] provides no warranty or guarantee of the accuracy or completeness of information in this document.
[2023-05-21 11:54] LABS: Anion Gap 6 (5-15); BUN 24 mg/dL (7-18); BUN/Creat Ratio 16.8 RATIO (10-20); Calcium,Total 9.1 mg/dL (8.5-10.1); Chloride 113 mmol/L (98-107); Creatinine, Serum 1.43 mg/dL (0.55-1.02); EST Glomerular Filtration Rate 38 mL/min (>60); Est Glom Filt Rate - Afr Amer 46 mL/min (>60); Glucose 124 mg/dL (74-106); Potassium 4.8 mmol/L (3.5-5.1); Sodium Level 139 mmol/L (136-145)
== END | disposition home or self-care (01) ==
PROVIDERS: PCP Family Medicine; Referring Provider Nurse Practitioner Gerontology; Visit Provider Nurse Practitioner Gerontology
DX: I35.0 Nonrheumatic aortic (valve) stenosis (principal)
CPT/HCPCS: 36415; 71046; 80048; 85025

== ENCOUNTER 2023-05-28 06:40 | Day surgery (SDC) | payer MEDICARE, BC, SELFPAY ==
[2023-05-27 13:59] VITALS: BMI 28.1
--- NOTE | 2023-05-28 09:02 | CL.D_ITS ---
Patient Name: ISABELLA CHAPMAN Study Date: 05/28/2023 Performing: Shaun Del Valle MD Ht: 65 inches 165.1 cm : 1945 Wt: 169.01 lbs 76.66 kg Age: 77 Gender: female BSA: 1.84 PROCEDURE(S) PERFORMED DC01-(04172)LHC/COR/LV CLINICAL PROFILE AND INDICATIONS Indications: Valvular Disease Heart Failure: None Stress/Imaging Stress/Image Study Performed: No CAD Presentations: Symptom unlikely to be ischemic. CONCLUSIONS Moderate to severe aortic valve stenosis and coronary disease noted in the LAD and diagonal vessel. RECOMMENDATIONS Will recommend evaluation by valve team for decision as to PCI and TAVR or AVR and CABG DESCRIPTION OF PROCEDURE The patient arrived to the procedure lab. The risks and benefits of the procedure as well as a full description of our services here and current unavailability of surgical backup were fully explained to the patient and/or their significant other prior to the catheterization. The Timeout was completed, verifying the correct patient and procedure. The patient's procedural site was prepped and draped in the usual fashion. Local anesthetic was given subcutaneously to right radial region with Lidocaine 2%. Using a modified Seldinger technique, arterial access was obtained via the right radial artery, a 6Fr sheath was inserted. Left Coronary Artery selective angiography was performed in multiple views using a 5 Fr. 4.0 [place] catheter. Right Coronary Artery selective angiography was then performed in multiple views using a 5 Fr. 4.0 [place] catheter.The arterial sheath was pulled and a TR Band was applied for hemostasis CORONARY ANGIOGRAPHY DOMINANCE: Right Dominant LEFT HEART ASSESSMENT Left Ventricular Ejection Fraction: by Echo 65 % Normal LV wall motion Normal Left Ventricular systolic function LEFT MAIN: Mild calcification, Mild luminal irregularities LEFT ANTERIOR DESCENDING ARTERY: Medium size vessel with mid 80% stenotic lesion and first diagonal vessel with 80% stenotic lesion as well. CIRCUMFLEX ARTERY: Mild luminal irregularities less than 30% RIGHT CORONARY ARTERY: Mild luminal irregularities less than 30% VALVE FINDINGS: Aortic Valve Calcification - severe Aortic Valve Stenosis - severe COMPLICATIONS No Complications PROCEDURE MEDICATIONS Fentanyl 50 mcg IV Versed 1 mg IV Versed 1 mg IV Fentanyl 25 mcg IV Versed 1 mg IV Fentanyl 25 mcg IV Oxygen: 2 L/min via nasal cannula Heparin given IA 05/28/2023 08:43:23 Nitro 100 mcg IC 05/28/2023 08:41:30 SUMMARY OF HEMODYNAMIC DATA Time AIR REST ECG 07:00:01 Signed By Shaun Del Valle MD On 05/28/2023 09:01:40 Shaun Del Valle MD
== END 2023-05-28 10:45 | disposition home or self-care (01) ==
LOC: CLSP 06:42
PROVIDERS: PCP Family Medicine; Referring Provider Family Medicine; Visit Provider Internal Medicine Cardiovascular Disease
DX: I35.0 Nonrheumatic aortic (valve) stenosis (principal); E11.9 Type 2 diabetes mellitus without complications; I25.10 Atherosclerotic heart disease of native coronary artery without angina pectoris; I10 Essential (primary) hypertension; Z79.82 Long term (current) use of aspirin; G47.33 Obstructive sleep apnea (adult) (pediatric); E03.9 Hypothyroidism, unspecified; Z85.038 Personal history of other malignant neoplasm of large intestine; Z82.49 Family history of ischemic heart disease and other diseases of the circulatory system
CPT/HCPCS: 93454; 99152; 99153; J7040; Q9967; C1769; C1894

== ENCOUNTER → 2023-07-30 | Outpatient (CLI) | payer MEDICARE, BC, SELFPAY ==
[2023-07-30 14:30] LABS: Hematocrit 30.8 % (37-47); Hemoglobin 10.1 g/dL (12.0-15.0); Mean Corp Hgb Conc 32.8 g/dL (32-36); Mean Corpuscular Hgb 28.9 pg (27.0-32.0); Mean Platelet Vol. 11.4 fl (6.2-12.0); Platelet Count 188 K/mm3 (150-450); RBC Distribution Width CV 13.2 % (11.6-14.6); RBC Distribution Width SD 42.6 fl (35.1-43.9); White Blood Count 6.7 K/mm3 (4.4-11.0)
[2023-07-30 15:00] LABS: Anion Gap 9 (5-15); BUN 34 mg/dL (7-18); BUN/Creat Ratio 23.8 RATIO (10-20); Calcium,Total 9.3 mg/dL (8.5-10.1); Chloride 110 mmol/L (98-107); Creatinine, Serum 1.43 mg/dL (0.55-1.02); EST Glomerular Filtration Rate 38 mL/min (>60); Est Glom Filt Rate - Afr Amer 46 mL/min (>60); Glucose 294 mg/dL (74-106); Potassium 5.1 mmol/L (3.5-5.1); Sodium Level 135 mmol/L (136-145); Thyroid Stim Hormone (TSH) 2.99 uIU/mL (0.358-3.74)
[2023-07-30 15:01] LABS: BNP,B-Type NATRIURETIC PEPTIDE 22.2 pg/mL (0-100)
== END | disposition home or self-care (01) ==
LOC: LAB 14:05
PROVIDERS: PCP Family Medicine; Referring Provider Physician Assistant Medical; Visit Provider Physician Assistant Medical
DX: R06.02 Shortness of breath (principal); R53.83 Other fatigue; I35.0 Nonrheumatic aortic (valve) stenosis; Z95.5 Presence of coronary angioplasty implant and graft
CPT/HCPCS: 36415; 80048; 83880; 84443; 85027

== ENCOUNTER → 2023-08-16 | Outpatient (CLI) | payer MEDICARE, BC, SELFPAY ==
[2023-08-16 12:31] LABS: Absolute Lymphocyte Count 2.25 X10^3/uL (0.83-4.51); Absolute Neutrophil Count 9.7 X10^3/uL (2.0-7.7); Basophil# 0.05 X10^3/uL; Basophil% 0.4 % (0-1); Eosinophil# 0.24 X10^3/uL; Eosinophils% 1.8 % (0-5); Hematocrit 31.3 % (37-47); Hemoglobin 10.1 g/dL (12.0-15.0); Lymphocyte # 2.25 X10^3/ul (0.83-4.51); Lymphocyte % 17.2 % (19-41); Mean Corp Hgb Conc 32.3 g/dL (32-36); Mean Corpuscular Hgb 28.9 pg (27.0-32.0); Mean Corpuscular Volume 89.4 fL (81-99); Mean Platelet Vol. 11.2 fl (6.2-12.0); Monocyte# 0.76 X10^3/uL; Monocyte% 5.8 % (0-10); NRBC Flagged by Analyzer 0 % (0-5); Neutrophil # 9.72 X10^3/uL (2.7-7.7); Neutrophil % 74.4 % (47-70); Platelet Count 225 K/mm3 (150-450); RBC Distribution Width CV 13.7 % (11.6-14.6); RBC Distribution Width SD 44.7 fl (35.1-43.9); White Blood Count 13.1 K/mm3 (4.4-11.0)
[2023-08-16 12:58] LABS: BNP,B-Type NATRIURETIC PEPTIDE 17.2 pg/mL (0-100)
[2023-08-16 13:00] LABS: Anion Gap 8 (5-15); BUN 32 mg/dL (7-18); BUN/Creat Ratio 24.4 RATIO (10-20); Calcium,Total 9.3 mg/dL (8.5-10.1); Chloride 112 mmol/L (98-107); Creatinine, Serum 1.31 mg/dL (0.55-1.02); EST Glomerular Filtration Rate 42 mL/min (>60); Est Glom Filt Rate - Afr Amer 51 mL/min (>60); Glucose 134 mg/dL (74-106); Sodium Level 136 mmol/L (136-145)
== END | disposition home or self-care (01) ==
LOC: LAB 11:49
PROVIDERS: PCP Family Medicine; Referring Provider Nurse Practitioner Gerontology; Visit Provider Nurse Practitioner Gerontology
DX: R06.09 Other forms of dyspnea (principal)
CPT/HCPCS: 36415; 80048; 83880; 85025

== ENCOUNTER → 2023-08-18 | Outpatient (CLI) | payer MEDICARE, BC, SELFPAY ==
--- NOTE | 2023-08-18 09:58 | CR.HP_ITS ---
CR - History & Physical General Arrival date:: 08/18/23 Arrival time:: 09:58 Date of Referral:: 07/26/23 Date of CR Evaluation:: 08/18/23 Referring Physician: Dr. Conner Primary Diagnosis: PCI with stenting History of Present Cardiac Event Onset Date PTCA or coronary stenting:: Yes Medications Ambulatory Orders ?Medication ?Instructions ?Recorded cholecalciferol (vitamin D3) 50 1 tab PO QHS SUPPLEMENT 02/26/13 mcg (2,000 unit) tablet liraglutide 0.6 mg/0.1 mL (18 mg/3 1.2 mg SQ DAILY DIABETES 03/04/15 mL) subcutaneous pen injector hydroxyzine HCl 25 mg tablet 25 mg PO QHS PRN anxiety 08/07/21 acetaminophen 500 mg tablet 325 mg PO Q8 PRN Pain Or Fever 10/20/21 cyclosporine 0.05 % eye drops in a 2 drp ophthalmic (eye) BID 10/20/21 dropperette (Restasis) menthol 4 % topical gel (Biofreeze 1 applic topical .prn PRN pain 10/20/21 (menthol)) levothyroxine 112 mcg tablet 112 mcg PO DAILY 04/14/22 ascorbate calcium (vitamin C) 500 500 mg PO DAILY 08/07/22 mg tablet betamethasone dipropionate 0.05 % 1 applic topical DAILY PRN skin 08/07/22 topical cream irritation fluticasone propionate 50 2 spray intranasal DAILY 08/07/22 mcg/actuation nasal spray,suspension ipratropium bromide 21 mcg (0.03 2 spray intranasal BID 08/07/22 %) nasal spray losartan 100 mg tablet 75 mg PO DAILY 08/07/22 metformin 500 mg tablet,extended 500 mg PO DAILY 08/07/22 release 24 hr aspirin 81 mg tablet,delayed 81 mg PO DAILY #10 tabs 05/21/23 release mecobalamin (vitamin B12) 1,000 1,000 mcg PO DAILY 05/21/23 mcg chewable tablet atorvastatin 40 mg tablet 40 mg PO DAILY 08/16/23 clopidogrel 75 mg tablet (Plavix) 75 mg PO DAILY #94 tabs 08/16/23 d-mannose 500 mg capsule (AZO 2,000 mg PO 08/16/23 D-Mannose) insulin glargine 100 unit/mL (3 20 unit subcut QAM 08/16/23 mL) subcutaneous pen lansoprazole 30 mg capsule,delayed 30 mg PO DAILY GERD 08/16/23 release magnesium oxide 400 mg (241.3 mg 500 mg PO QHS SUPPLEMENT 08/16/23 magnesium) tablet Allergies Allergies azathioprine (From Azasan) Allergy (Verified 08/16/23 11:10) Anaphylaxis codeine Adverse Reaction (Verified 08/16/23 11:10) Vomiting naproxen (From Naprosyn) Adverse Reaction (Verified 08/16/23 11:10) Upset Stomach Sleep Disorder Evaluation Hx of Sleep Apnea: Yes Do you snore loudly (louder than talking or can be heard through closed doors)?: No Do you often feel tired/ fatigued/ sleepy during daytime?: No Has anyone observed you stop breathing during sleep?: No History of Hypertension (for STOP score): Yes STOP Results: Negative Advanced Directives Advanced Directives Power of Superintendent Marine: Yes Living Will: Yes Advance Directives Information Provided: Yes Advance Directives on File: Yes DNR Order?:: No Past Medical History Covid-19 Screening Physicial Symptoms Other Clinical Concerns Exposure Risk Pertinent Comorbidities 65 years or older:: Yes Has a serious heart condition:: Yes Diabetic:: Yes Past Medical Illness Medical History (Reviewed 08/16/23 @ 11:10 by Hattie Borja ORACLE APPLICATIONS ANALYST, ORACLE APPLICATIONS ANALYST-C) Atherosclerotic heart disease of samish coronary artery without angina pectoris Colon cancer Crohn's disease Essential (primary) hypertension PND (post-nasal drip) NAVDEEP (obstructive sleep apnea) Sarcoidosis GI bleed (03/10/17) Anxiety and depression Hypothyroidism Osteoarthritis Anemia Non-rheumatic aortic stenosis Obesity (BMI 30.0-34.9) Diabetes mellitus, type II Past Surgical History Surgical History Stented coronary artery (07/26/23) H/O cervical spine surgery H/O ileostomy History of cataract surgery History of knee replacement, total Hx of cholecystectomy History of hysterectomy Surgical History: - Family History Summary Family History Mother CAD (coronary artery disease) Heart disease Father CAD (coronary artery disease) Hypertension Cancer Heart disease Sister Colon cancer Brother Heart disease Parkinson disease Social History Smoking History Smoking Status: Never smoker Alcohol Use Alcohol Usage: No Occupation Occupation (List type of work in comments):: Retired Hobbies, Recreation, Social Activities Hobbies: Reading Recreational Activities: I am able to engage in all my recreational activities Social Environment Status Marital Status: Current Living Arrangements Living Environment:: Spouse Children How many children do you have?: 2 Do any of your children live nearby?: Yes Safety Do you feel safe in your surroundings?: Yes Assistance Do you need any assistance at home?: no Review of Systems Review of Systems Hints Review of Present Symptoms: Reports Shortness of Breath at Rest, Shortness of Breath with Exertion, Operative Discomfort, Angina, Dizziness/Lightheadedness, Fatigue, Heart Arrhythmia/Irregularities, Appetite - Special Diet and Sleep - Normal; Denies PVD, Wound Healing, Appetite - Normal or Sexual Changes Pain Is Patient Pain Free?: Yes Pain Location: neck, back and upper extremity Pain Level: 10/15 Risk Factor Assessment Chief Complaint Chief Complaint: PCI with stenting Vital Signs Pulse Ox: 99 Blood Pressure: 124/72 Pulse Pulse Rate: 76 Diabetes Diabetic History: Type II Nutrition Referral for Diabetes: Yes Obesity Height: 5 ft 5 in Weight:: 169 lb Weight in Pounds: 169.0 lbs Body Mass Index (BMI): 28.1 Nutritional Referral for Obesity: No Physical Inactivity Physical Inactivity: None Risk Stratification Risk Guidelines: Moderate Risk: Risk Factor for Smoking, Risk Factor for Dyslipidemia and Risk Factor for Sedentary Lifestyle and Highest Risk: Risk Factor for Diabetes, Risk Factor for Obesity, Risk Factor for Hypertension and Risk Factor for Depression For Smoking Smoking Risk Guidelines For Dyslipidemia Dyslipidemia Risk Guidelines For Diabetes Mellitus Diabetes Risk Guidelines For Obesity/Overweight Obesity/Overweight Risk Guidelines For Hypertension Hypertension Risk Guidelines For Sedentary Lifestyle Sedentary Lifestyle Risk Guidelines For Depression Depression Risk Guidelines Family History Family History Mother CAD (coronary artery disease) Heart disease Father CAD (coronary artery disease) Hypertension Cancer Heart disease Sister Colon cancer Brother Heart disease Parkinson disease Motivation Motivation to Participate What do you see as barriers to successfully being able to complete the program?: nothing Are there issues you are dealing with that will interfere with completing the program?: no Do you have a spouse or signficant other, family or friends who will help support you to complete the program?: yes
[2023-08-18 10:06] VITALS: BP 124/72; PULSE 76; O2SAT 99
--- NOTE | 2023-08-18 10:06 | CR.ITP_ITS ---
Diagnosis General Information Admitting Diagnosis: PCI with stenting Personal Learning Style:: Audio/Visual Barriers to Learning: No Barriers Stage of change r/t lifestyle modifications:: Contemplation Gave educational material for:: Treating Heart Disease, How The Heart Works, What it means to have Heart Disease, How Coronary Artery Disease is Diagnosed, Heart Procedures, What Heart Medications Do, Risk Factors & Modifications, Living an Active Life, Nutrition, Emotions & Heart Disease, Stress Management & Relaxation and Sleep Disorders & Heart Disease Education/Goals Cardiac Rehabilitation Goals Personal Goals: Initial Assessment: Improve energy level, Get back to work, or to resume activities faster and Improve muscle strength and endurance Scale for measuring improvement of personal goals Diagnosis & Disease Process Outcomes/Goals: Pt IDs own risk factors & lifestyle modifications by Session 10, Verbalizes symptoms of angina & response by session 3., Pt independently manages and Other Additional Outcomes/Goals: Plan/Interventions: Assist Pt to ID & engage in lifestyle modification to reduce CVD risk, Instruct on individual risk factors, Review symptoms of angina & emergency actions, Review secondary diagnosis & identify educational needs. and Other see comment 30 day Reassessments:: Not Met 30 day Reassessments:: Not Met 30 day Reassessments:: Not Met 30 day Reassessments:: Not Met Final Reassessments:: Not Met Safety Referral to Physical Therapy: No Referral to [facility] Case Management: No Fall Risk Assessed:: Yes Assistive Devices:: None Exercise - Initial Assessment Visit Date of Eval: 08/18/23 (initial eval ) Mets: Pre-: >3 METS for 30 minutes by discharge, >5 METS for 30 minutes by d ischarge, >7 METS for 30 minutes by discharge and Unable to meet goal due to: (see comment below) Physician Prescribed Exercise Modalities: Treadmill, Rower, Schwinn Airdyne AD-7, SciFit Stepper, SciFit Pro- II Ergometer and SciFit 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 Frequency: 2x/week for 18 weeks [36 sessions] and 3x/week for 12 weeks [36 sessi ons] Intensity: 60-80% of age predicted maximum heart rate reserve Duration: 30 - 45 minutes Current METSs:: 3 Target RPE 12-16:: 79-109 Resting Blood Pressure: 124/72 EKG Type: SR Outcomes & Goals Goals:: Verbalizes understanding of THR, RPE & goal METS by session 6, Documents in home exercise log/reports 30 min aerobic 5 day/wk by DC, Demonstrates accurate pulse taking by DC and Other additional outcome/goals: see below Intervention & Plan Exercise Program Goals: Instruct on personal THR & RPE, Instruct on MET level & personal MET goal, Show patient to take own pulse /validate performance until accurate, Instruct on home exercise and Other additional plan/int Physical Activity Home Exercise Physical Activity - Home Exercise: Safe Exercise, Warm-up, Self-monitoring, Cool-Down, Home Exercise > 30 min Daily and Sitting Time <3 hours/daily Outcomes & Goals Outcomes/Goals: Demonstrates correct Warm-up/exercise Cool-Down (S3) if = 2.5 METs, Verbalizes symptoms of exercise intolerance by Session 3 (S3), Demonstrate safe equipment use (S3) & follows exercise prescrition (6) and Other: See below Intervention & Plan Plan/Intervention: Instruct warm-up & cool-down if exercising at > 2 METs, Instruct on symptoms of exercise intolerance & actions to take, Instruct & monitor on saf, Assess intial functional capacity & safety risk and Other See below Nutrition - Initial Assessment Program Goals Nutrition Program Goals Patient has diagnosis of Hyperlipidemia (ICD E78)?: No Visit Date of Eval: 08/18/23 (initial eval ) Cholesterol/Lipids (Other Core Measures) Determine presence & major risk factors that modify LDL goal: Cigarette smoking, Hypertension or hypertensive medication, Low HDL cholesterol <40 mg/dL*, Family history of premature CHD in Male < 55 years: female <65 yearsFa and Age men > 45 years; women >/= 55 years Outcomes/Goals: Pt IDs own risk factors & lifestyle modifications by Session 10, Verbalizes symptoms of angina & response by session 3., Pt independently manages and Other Additional Outcomes/Goals: Intervention/Plan: Advocate for lipid panel cholesterol medication if applicable, Instruct on personal lipid levels & lipid goals/NCEP guidelines, Instruct on cholesterol and Other additional plan/int Referral to dietitian:: No Diabetes (Other Core Measures) Diabetes Type: Diagnosis Type II ICD-10 E11 Insulin dependent injection/pump?: Yes Non-Insulin Dependent?: Yes Do you monitor your blood sugar at home?: Yes Referral to Diabetic Clinic:: No Outcomes/Goals:: Able to state symptoms of, Able to state, Able to state and Other additional Intervention/Plan:: Instruct on, Refer to, Instruct on and Other Weight Mgt (Other Care) Height: 5 ft 5 in Weight:: 169 lb BMI: 28.1 Diagnosis Overweight/Obesity BMI> 30% ICD-10 E66: No Diagnosis High BMI/Morbid Obesity BMI> 35% ICD-10 Z68: No Outcomes/Goals: Pt sets, maintains & shows weight loss goal & trend during rehab and Other additional outcomes/goals Intervention/Plan: Instruct on ideal BMI & set weight loss goal w/patient, Assist pt to ID & incorporate diet changes for weight loss by S9, Refer to Structured Weight Loss program as appropriate, Encourage goal of using 250- 300dcal per session for weight loss and Other additional plan/interventions Healthy Eating Habits Will attend diet classes:: Yes Outcomes/Goals:: Consume diet rich in vegs,fruits,whole grain/high fiber,fish,lean meat, Limit sat/trans fats,cholesterol & added salts & sugars and Other additional outcome/goals: Intervention/Plan:: Assess current eating habits and Other Additional plan/interventions Education Gave educational materials for:: Signs & symptoms of hypoglycemia, Signs & symptoms of hyperglycemia, Relate diabetes to coronary artery disease and Healthy eating Core - Initial Assessment Visit Date of Eval: 08/18/23 (initial eval ) Medication Compliance Preventative Medication(s):: Aspirin, Statin/lipid and ARB (Angiotensi Rcap) H/O mental health issues: depression, anxiety, or addiction?: Yes Doesn?t believe in the benefits of treatment?: No Believes medications are unnecessary or harmful?: No Has a concern about medication side effects?: No Expresses concern over the cost of medications?: No Outcomes/Goals: Verbalizes medications,desired effect & common side effects @ DC, Pt self-reports following medication regimen, Keeps card in wallet w/medications listed by DC and Other additional outcome/goals: Interventions/plans: Instruct on medication effects & side effects, Review medication list w/patient every two weeks, Instruct importance of taking meds as ordered & assist problem solving and Other additional Tobacco Use Tobacco Use: Non-smoker Do you use smokeless tobacco?: No Hypertension Hypertension Diagnosis:: Hypertension ICD-10 I10 Resting Blood Pressure:: 124/72 [place] [employer] Hypertension Guidelines Outcomes/Goals: Able to verbalize/achieve optimal blood pressure <130/80, Incorporates diet changes & exercise for blood pressure control by DC and Other additional outcomes/goals Interventions/plan: Instruct on optimal blood pressure, hypertension & medications, Instruct on effects of sodium, alcohol, stress, exercise &hypertension and Other additional plan/interventions Tobacco Cessation Referral Smoking Cessation Referral:: No Individual Education/Counseling:: Yes Education Schedule Given:: Yes Psychosocial - Initial Assess VIsit Date of Eval: 08/18/23 (initial eval) History of previous Mental disease:: Yes History of Emotional Disorders: Anxious and Depression Target Goals Target Goals Psychosocial Test Tool Used:: Mysterio QOL Cardiac phq-9 Severity Outcomes/Goals: See list Psychosocial Outcomes/Goals:: ID's personal stressors & 2 strategies to manage stress by discharge and Other Additional outcome/goals: Intervention/Plan: See List Interventions/Plan:: Assess stressors,coping strategies & signs of derpression on admission, Instruct/assist pt to develop coping & personal stress Mgt strategies, Refer to Behavioral Health if appropriate, Refer to Physician if appropriate, Instruct patient to recognize signs & symptoms of depression, Instruct patient to recog and Other additional plan/intervention Patient Health Questionnaire PHQ-9 Screening Initial Assessment: 1. Little interest or pleasure in doing things: Several days 3. Trouble falling or staying asleep, or sleeping too much: More than half the days 4. Feeling tired or having little energy: Nearly every day 5. Poor appetite or overeating: More than half the days 6. Feeling bad about yourself -- or that you are a failure or have let yourself or your family down: More than half the days 7. Trouble concentrating on things, such as reading the newspaper or watching television: Not at all 8. Moving or speaking so slowly that other people could have noticed. Or the opposite - being so fidgety or restless that you have been moving around a lot more than usual: Several days 9. Thoughts that you would be better off , or of hurting yourself in some way: Not at all How difficult have these problems made it for you to do your work, take care of things at home, or get along with other people?: Somewhat difficult Total Score: 11 THONY-Q SV Test Statements CAD is a disease of the arteries in the heart: False Examples of risk factors for heart disease: I Don't Know Angina is chest pain or discomfort: True The benefits of resistance training include: True Eating more meat and dairy products: False Anti-platelet medications such as aspirin are important: True The only effective way to manage stress: I Don't Know An exercise warm-up slowly increases heart rate: True Prepared, processed foods usually have high sodium: True Depression is common after a heart attack: True The statin medications lower cholesterol: False To control blood pressure, lower the amount of sodium: True If someone gets chest discomfort during walking: False Transfats are partially hydrogenated vegetable oils: True Sleep apnea that is not treated increases the risk: True To control cholesterol, one should become a vegetarian: False Someone knows if he/she is exercising at the right level: True Diabetes cannot be prevented with exercise & health eating: True Stress is a large risk for heart attack: True A diet that can help lower blood pressure is rich in: True Total Score Total Correct Responses: 15 Self-Efficacy 6-Item Scale Initial Assessment: We would like to know how confident you are in doing certain activities. Please select your confidence level for: Fatigue Select Number: 4 Physical Discomfort or Pain Select Number: 5 Emotional Distress Select Number: 4 Other Symptoms or Health Problems Select Number: 4 Different Tasks and Activities Select Number: 5 Medication Select Number: 6 Total Score:: 4 Nutrition Survey Nutrition Survey Instructions Scoring Instructions Nutrition Survey Initial: Have you lost >10 lbs over the past 2 months without trying?: No Are you following a special diet at home for diabetes, low fat, or low salt?: Yes Are you interested in meeting with a dietitian for help understanding your diet?: No Do you eat less than 3 meals a day?: Yes Do you eat fatty meats (echeverria, sausage, ribs, etc), fried foods, desserts, large amounts of salad dressings, margarine, butter, or cheese most days?: No Do you have food allergies? [Enter types in comment field]: No Do you eat in restaurants more than 3 times a week?: No Do you season food with salt, seasoning salt, or garlic salt?: No Do you used canned, boxed, frozen meals, or soups, seasoning packets?: No Total Score:: 2 Exercise - 30-day Assessment Physician Prescribed Exercise Modalities: Treadmill, Rower, Julianne Casasne AD-7, SciFit Stepper, SciFit Pro- II Ergometer and SciFit Lateral [place] Exercise - 60-day Assessment Physician Prescribed Exercise Modalities: Treadmill, Rower, Schwinn Airdyne AD-7, SciFit Stepper, SciFit Pro- II Ergometer and SciFit Lateral [place] Exercise - 90-day Assessment Physician Prescribed Exercise Modalities: Treadmill, Rower, Schwinn Airdyne AD-7, SciFit Stepper, SciFit Pro- II Ergometer and SciFit Lateral 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 Exercise - Final/Discharge Physician Prescribed Exercise Modalities: Treadmill, Rower, Schwinn Airdyne AD-7, SciFit Stepper, SciFit Pro- II Ergometer and SciFit Lateral [place] Frequency: 2x/week for 18 weeks [36 sessions] and 3x/week for 12 weeks [36 sessions] Intensity: 60-80% of age predicted maximum heart rate reserve Current METSs:: 3 Nutrition - 30-Day Assessment Weight Mgt (Other Care) Height: 5 ft 5 in Weight:: 169 lb BMI: 28.1 Nutrition - 60-Day Assessment Weight Mgt (Other Care) Height: 5 ft 5 in Weight:: 169 lb BMI: 28.1 Core - Final Assessment Hypertension Resting Blood Pressure:: 124/72 [place] [employer] Hypertension Guidelines Core - 60-Day Assessment Hypertension Resting Blood Pressure:: 124/72 [place] [employer] Hypertension Guidelines Psychosocial - 30-Day Assess Target Goals Target Goals Psychosocial - 60-Day Assess Target Goals Target Goals Psychosocial - 90-Day Assess Target Goals Target Goals Psychosocial - Final Assessmen Target Goals Target Goals Nutrition - 90-Day Assessment Weight Mgt (Other Care) Height: 5 ft 5 in Weight:: 169 lb BMI: 28.1 Nutrition - Final Assessment Program Goals Patient has diagnosis of Hyperlipidemia (ICD E78)?: No Weight Mgt (Other Care) Height: 5 ft 5 in Weight:: 169 lb BMI: 28.1
[2023-08-18 10:16] VITALS: BP 124/72
[2023-08-18 10:59] VITALS: BMI 28.1
[2023-08-18 11:00] VITALS: BMI 28.1
== END | disposition home or self-care (01) ==
LOC: CR 09:51
PROVIDERS: PCP Family Medicine; Referring Provider Internal Medicine Cardiovascular Disease; Visit Provider Internal Medicine Cardiovascular Disease
DX: Z00.00 Encounter for general adult medical examination without abnormal findings (principal)

== ENCOUNTER 2023-09-03 13:00 | Outpatient (RCR) | payer MEDICARE, BC, SELFPAY ==
[2023-08-18 10:59] VITALS: BMI 28.1
== END 2023-09-05 23:59 ==
LOC: CR 13:00
PROVIDERS: PCP Family Medicine
DX: Z95.9 Presence of cardiac and vascular implant and graft, unspecified (principal)
CPT/HCPCS: 93798

== ENCOUNTER 2023-09-06 10:44 | Outpatient (RCR) | payer MEDICARE, BC, SELFPAY ==
[2023-08-18 10:59] VITALS: BMI 28.1
--- NOTE | 2023-09-17 07:22 | PCM.CR.ITP ---
Exercise - Initial Assessment Visit Comments:: Patient scheduled for TAVR 09/06/2023, will need updated ITP upon her resuming Cardiac Rehab Psychosocial - Initial Assess Target Goals Target Goals Nutrition Survey Nutrition Survey Instructions Scoring Instructions Exercise - 30-day Assessment Visit Date of Eval: 09/17/23 Session #:: 4 Comments:: Patient scheduled for TAVR 09/06/2023, will need updated ITP upon her resuming Cardiac Rehab Psychosocial - 30-Day Assess Target Goals Target Goals Psychosocial - 60-Day Assess Target Goals Target Goals Psychosocial - 90-Day Assess Target Goals Target Goals Psychosocial - Final Assessmen Target Goals Target Goals
== END 2023-10-06 23:59 ==
LOC: CR 10:44
PROVIDERS: PCP Family Medicine
DX: I25.10 Atherosclerotic heart disease of native coronary artery without angina pectoris (principal); Z95.5 Presence of coronary angioplasty implant and graft; I35.0 Nonrheumatic aortic (valve) stenosis; D86.9 Sarcoidosis, unspecified; G47.33 Obstructive sleep apnea (adult) (pediatric)
CPT/HCPCS: 93798

== ENCOUNTER → 2023-09-13 | Outpatient (CLI) | payer MEDICARE, BC, SELFPAY ==
[2023-08-18 10:59] VITALS: BMI 28.1
[2023-09-13 15:04] LABS: Absolute Lymphocyte Count 2.47 X10^3/uL (0.83-4.51); Absolute Neutrophil Count 6.1 X10^3/uL (2.0-7.7); Basophil# 0.06 X10^3/uL; Basophil% 0.6 % (0-1); Eosinophil# 0.34 X10^3/uL; Eosinophils% 3.5 % (0-5); Hemoglobin 9.4 g/dL (12.0-15.0); Lymphocyte # 2.47 X10^3/ul (0.83-4.51); Lymphocyte % 25.6 % (19-41); Mean Corp Hgb Conc 31.3 g/dL (32-36); Mean Corpuscular Hgb 28.8 pg (27.0-32.0); Mean Platelet Vol. 11.7 fl (6.2-12.0); Monocyte# 0.67 X10^3/uL; Monocyte% 6.9 % (0-10); NRBC Flagged by Analyzer 0 % (0-5); Neutrophil # 6.09 X10^3/uL (2.7-7.7); Neutrophil % 63.1 % (47-70); Platelet Count 207 K/mm3 (150-450); RBC Distribution Width CV 13.9 % (11.6-14.6); RBC Distribution Width SD 46.8 fl (35.1-43.9); RET-HE 29.9 pg (30-35); Red Blood Count 3.26 M/mm3 (4.2-5.4); Reticulocyte Count 2.35 % (0.5-1.5); White Blood Count 9.7 K/mm3 (4.4-11.0)
[2023-09-13 15:38] LABS: ALB/GLOB Ratio 0.9 RATIO (0.9-2.4); AST(SGOT) 33 U/L (15-37); Alanine Aminotransfer ALT/SGPT 39 U/L (13-56); Albumin, Serum 3.6 g/dL (3.2-5.0); Alkaline Phosphatase 94 U/L (45-117); Anion Gap 7 (5-15); BUN 29 mg/dL (7-18); BUN/Creat Ratio 17.3 RATIO (10-20); Calcium,Total 8.9 mg/dL (8.5-10.1); Chloride 106 mmol/L (98-107); Creatinine, Serum 1.68 mg/dL (0.55-1.02); EST Glomerular Filtration Rate 32 mL/min (>60); Est Glom Filt Rate - Afr Amer 38 mL/min (>60); Ferritin 94 ng/mL (8-252); Globulin 3.8 g/dL (2.2-4.2); Glucose 145 mg/dL (74-106); Iron Binding Capacity,Total 336 ug/dL (250-450); Potassium 5.7 mmol/L (3.5-5.1); Protein, Total 7.4 g/dL (6.4-8.2); Sodium Level 133 mmol/L (136-145)
== END | disposition home or self-care (01) ==
LOC: MFPLAB 11:13
PROVIDERS: PCP Family Medicine; Visit Provider Family Medicine
DX: D50.9 Iron deficiency anemia, unspecified (principal); E11.42 Type 2 diabetes mellitus with diabetic polyneuropathy
CPT/HCPCS: 36415; 80053; 82728; 82746; 83550; 85025; 85045

== ENCOUNTER → 2023-09-27 | Outpatient (CLI) | payer MEDICARE, BC, SELFPAY ==
[2023-08-18 10:59] VITALS: BMI 28.1
[2023-09-27 15:28] LABS: Anion Gap 9 (5-15); BUN 16 mg/dL (7-18); BUN/Creat Ratio 14.3 RATIO (10-20); Calcium,Total 9.3 mg/dL (8.5-10.1); Chloride 106 mmol/L (98-107); Creatinine, Serum 1.12 mg/dL (0.55-1.02); EST Glomerular Filtration Rate 50 mL/min (>60); Est Glom Filt Rate - Afr Amer 61 mL/min (>60); Glucose 126 mg/dL (74-106); Magnesium 2.2 mg/dL (1.6-2.6); Potassium 5.1 mmol/L (3.5-5.1); Sodium Level 135 mmol/L (136-145)
== END | disposition home or self-care (01) ==
LOC: MFPLAB 11:18
PROVIDERS: PCP Family Medicine; Visit Provider Family Medicine
DX: E87.5 Hyperkalemia (principal)
CPT/HCPCS: 36415; 80048; 83735

== ENCOUNTER 2023-11-05 13:00 | Outpatient (RCR) | payer MEDICARE, BC, SELFPAY ==
[2023-08-18 10:59] VITALS: BMI 28.1
--- NOTE | 2023-10-15 09:57 | PCM.CR.ITP ---
Exercise - Initial Assessment Visit Session #:: 4 Comments:: Pt was on med hold. Pt had TAVR procedure and is going to resume her CR 10/18/23 Physician Prescribed Exercise Modalities: Treadmill, SciFit Stepper and SciFit Pro-II Ergometer Nutrition - Initial Assessment Weight Mgt (Other Care) Height: 5 ft 5 in Weight:: 164 lb BMI: 27.3 Psychosocial - Initial Assess Target Goals Target Goals Patient Health Questionnaire PHQ-9 Screening 30-Day Re-eval Assessment: 1. Little interest or pleasure in doing things: Several days 2. Feeling down, depressed, or hopeless: More than half the days 3. Trouble falling or staying asleep, or sleeping too much: Nearly every day 4. Feeling tired or having little energy: More than half the days 5. Poor appetite or overeating: More than half the days 6. Feeling bad about yourself -- or that you are a failure or have let yourself or your family down: More than half the days 7. Trouble concentrating on things, such as reading the newspaper or watching television: Not at all 8. Moving or speaking so slowly that other people could have noticed. Or the opposite - being so fidgety or restless that you have been moving around a lot more than usual: Several days 9. Thoughts that you would be better off , or of hurting yourself in some way: Not at all How difficult have these problems made it for you to do your work, take care of things at home, or get along with other people?: Somewhat difficult Total Score: 13 Self-Efficacy 6-Item Scale 30-Day Re-eval Assessment: We would like to know how confident you are in doing certain activities. Please select your confidence level for: Fatigue Select Number: 4 Physical Discomfort or Pain Select Number: 5 Emotional Distress Select Number: 4 Other Symptoms or Health Problems Select Number: 4 Different Tasks and Activities Select Number: 5 Medication Select Number: 6 Total Score:: 4 Nutrition Survey Nutrition Survey Instructions Scoring Instructions Exercise - 30-day Assessment Visit Date of Eval: 10/15/23 Session #:: 4 Comments:: Pt was on med hold. Pt had TAVR procedure and is going to resume her CR 10/18/23 Physician Prescribed Exercise Modalities: Treadmill, SciFit Stepper and SciFit Pro-II Ergometer Frequency: 3x/week for 12 weeks [36 sessions] Intensity: 60-80% of age predicted maximum heart rate reserve Duration: 30 - 45 minutes Current METSs:: 3 Target Heart Rate:: 95-123 Current RPE:: 9-10 Maximum Excercise HR:: 103 Resting Blood Pressure: 130/76 Maximum Exercise Blood Pressure: 130/50 EKG Type: NSR to ST with rare PAC's Outcomes & Goals Goals:: Verbalizes understanding of THR, RPE & goal METS by session 6, Documents in home exercise log/reports 30 min aerobic 5 day/wk by DC, Demonstrates accurate pulse taking by DC and Other additional outcome/goals: see below Intervention & Plan Exercise Program Goals: Instruct on personal THR & RPE, Instruct on MET level & personal MET goal, Show patient to take own pulse /validate performance until accurate, Instruct on home exercise and Other additional plan/int 30-day Reassessments 30 day Reassessments:: Progressing Physical Activity Home Exercise Physical Activity - Home Exercise: Safe Exercise, Warm-up, Self-monitoring, Cool-Down, Home Exercise > 30 min Daily and Sitting Time <3 hours/daily Outcomes & Goals Outcomes/Goals: Demonstrates correct Warm-up/exercise Cool-Down (S3) if = 2.5 METs, Verbalizes symptoms of exercise intolerance by Session 3 (S3), Demonstrate safe equipment use (S3) & follows exercise prescrition (6) and Other: See below Intervention & Plan Plan/Intervention: Instruct warm-up & cool-down if exercising at > 2 METs, Instruct on symptoms of exercise intolerance & actions to take, Instruct & monitor on saf, Assess intial functional capacity & safety risk and Other See below 30-day Reassessments 30 day Reassessments:: Progressing Exercise - 60-day Assessment Physician Prescribed Exercise Modalities: Treadmill, SciFit Stepper and SciFit Pro-II Ergometer Exercise - 90-day Assessment Physician Prescribed Exercise Modalities: Treadmill, SciFit Stepper and SciFit Pro-II Ergometer Exercise - Final/Discharge Physician Prescribed Exercise Modalities: Treadmill, SciFit Stepper and SciFit Pro-II Ergometer Nutrition - 30-Day Assessment Program Goals Nutrition Program Goals Patient has diagnosis of Hyperlipidemia (ICD E78)?: No Visit Date of Eval: 10/15/23 Session #:: 4 Cholesterol/Lipids (Other Core Measures) Determine presence & major risk factors that modify LDL goal: Cigarette smoking, Hypertension or hypertensive medication, Low HDL cholesterol <40 mg/dL*, Family history of premature CHD in Male < 55 years: female <65 yearsFa and Age men > 45 years; women >/= 55 years Outcomes/Goals: Pt IDs own risk factors & lifestyle modifications by Session 10, Verbalizes symptoms of angina & response by session 3., Pt independently manages and Other Additional Outcomes/Goals: Intervention/Plan: Advocate for lipid panel cholesterol medication if applicable, Instruct on personal lipid levels & lipid goals/NCEP guidelines, Instruct on cholesterol and Other additional plan/int Referral to dietitian:: No 30-day Reassessments:: Progressing Diabetes (Other Core Measures) Diabetes Type: Diagnosis Type II ICD-10 E11 Insulin dependent injection/pump?: Yes Non-Insulin Dependent?: Yes Do you monitor your blood sugar at home?: Yes Referral to Diabetic Clinic:: No Outcomes/Goals:: Able to state symptoms of, Able to state, Able to state and Other additional Intervention/Plan:: Instruct on, Refer to, Instruct on and Other 30-day Reassessments:: Progressing Weight Mgt (Other Care) Height: 5 ft 5 in Weight:: 164 lb BMI: 27.3 Diagnosis Overweight/Obesity BMI> 30% ICD-10 E66: No Diagnosis High BMI/Morbid Obesity BMI> 35% ICD-10 Z68: No Outcomes/Goals: Pt sets, maintains & shows weight loss goal & trend during rehab and Other additional outcomes/goals Intervention/Plan: Instruct on ideal BMI & set weight loss goal w/patient, Assist pt to ID & incorporate diet changes for weight loss by S9, Refer to Structured Weight Loss program as appropriate, Encourage goal of using 250-300dcal per session for weight loss and Other additional plan/interventions 30 day Reassessments:: Progressing Healthy Eating Habits Will attend diet classes:: Yes Outcomes/Goals:: Consume diet rich in vegs,fruits,whole grain/high fiber,fish,lean meat, Limit sat/trans fats,cholesterol & added salts & sugars and Other additional outcome/goals: Intervention/Plan:: Assess current eating habits and Other Additional plan/interventions 30-day Reassessments:: Progressing Education Gave educational materials for:: Signs & symptoms of hypoglycemia, Signs & symptoms of hyperglycemia, Relate diabetes to coronary artery disease and Healthy eating Nutrition - 60-Day Assessment Weight Mgt (Other Care) Height: 5 ft 5 in Weight:: 164 lb BMI: 27.3 Core - 30-Day Assessment Visit Date of Eval: 10/15/23 Session #:: 4 Medication Compliance Preventative Medication(s):: Aspirin, Statin/lipid and ARB (Angiotensi Rcap) H/O mental health issues: depression, anxiety, or addiction?: Yes Doesn?t believe in the benefits of treatment?: No Believes medications are unnecessary or harmful?: No Has a concern about medication side effects?: No Expresses concern over the cost of medications?: No Outcomes/Goals: Verbalizes medications,desired effect & common side effects @ DC, Pt self-reports following medication regimen, Keeps card in wallet w/medications listed by DC and Other additional outcome/goals: Interventions/plans: Instruct on medication effects & side effects, Review medication list w/patient every two weeks, Instruct importance of taking meds as ordered & assist problem solving and Other additional 30-day Reassessments:: Progressing Tobacco Use Tobacco Use: Non-smoker 30-day Reassessments:: Met Hypertension Hypertension Diagnosis:: Hypertension ICD-10 I10 Resting Blood Pressure:: 130/76 [place] [employer] Hypertension Guidelines Peak Exercise Blood Pressure:: 130/50 Outcomes/Goals: Able to verbalize/achieve optimal blood pressure <130/80, Incorporates diet changes & exercise for blood pressure control by DC and Other additional outcomes/goals Interventions/plan: Instruct on optimal blood pressure, hypertension & medications, Instruct on effects of sodium, alcohol, stress, exercise &hypertension and Other additional plan/interventions 30 day Reassessments:: Progressing Tobacco Cessation Referral Smoking Cessation Referral:: No Individual Education/Counseling:: No Education Schedule Given:: Yes Psychosocial - 30-Day Assess VIsit Date of Eval: 10/15/23 Session #:: 4 History of previous Mental disease:: Yes History of Emotional Disorders: Anxious and Depression Target Goals Target Goals Outcomes/Goals: See list Psychosocial Outcomes/Goals:: ID's personal stressors & 2 strategies to manage stress by discharge and Other Additional outcome/goals: Intervention/Plan: See List Interventions/Plan:: Assess stressors,coping strategies & signs of derpression on admission, Instruct/assist pt to develop coping & personal stress Mgt strategies, Refer to Behavioral Health if appropriate, Refer to Physician if appropriate, Instruct patient to recognize signs & symptoms of depression, Instruct patient to recog and Other additional plan/intervention 30-day Reassessments: 30 day Reassessments:: Progressing Psychosocial - 60-Day Assess Target Goals Target Goals Outcomes/Goals: See list Psychosocial Outcomes/Goals:: ID's personal stressors & 2 strategies to manage stress by discharge and Other Additional outcome/goals: Psychosocial - 90-Day Assess Target Goals Target Goals Psychosocial - Final Assessmen Target Goals Target Goals Nutrition - 90-Day Assessment Weight Mgt (Other Care) Height: 5 ft 5 in Weight:: 164 lb BMI: 27.3 Nutrition - Final Assessment Weight Mgt (Other Care) Height: 5 ft 5 in Weight:: 164 lb BMI: 27.3
[2023-10-15 10:09] VITALS: BP 130/76; BMI 27.3
== END 2023-11-06 23:59 ==
LOC: CR 13:00
PROVIDERS: PCP Family Medicine
DX: I25.10 Atherosclerotic heart disease of native coronary artery without angina pectoris (principal); Z95.5 Presence of coronary angioplasty implant and graft; I35.0 Nonrheumatic aortic (valve) stenosis; D86.9 Sarcoidosis, unspecified; G47.33 Obstructive sleep apnea (adult) (pediatric)
CPT/HCPCS: 93798

== ENCOUNTER → 2023-12-02 | Outpatient (CLI) | payer MEDICARE, BC, SELFPAY ==
[2023-11-15 09:35] VITALS: BMI 27.9
--- NOTE | 2023-12-02 08:44 | BI_ITS ---
MAMMOGRAPHY - BILATERAL DIAGNOSTIC REASON FOR EXAM: Female, 78 years old. Annual monitoring of calcifications. Prior left stereotactic breast biopsy. PERTINENT HISTORY: Non-contributory. TECHNIQUE: Digital bilateral breast joslyn (3D mammographic acquisition) in the CC and MLO projections. 2-D mediolateral oblique (MLO) and craniocaudad (CC) views of both breasts were obtained. CAD: Full Field Digital Mammography with Computer Added Detection was performed. COMPARISON: Comparison is made with prior study dated January 27, 2023 and February 04, 2023. FINDINGS: Breast Composition: The breasts are heterogeneously dense, which may obscure small masses. A tissue clip marker is seen within a small focus of calcifications in the upper outer quadrant of the left breast. The number of calcifications of decreased as compared to prior study. Stable benign-appearing bilateral axillary lymph nodes. No other significant abnormalities are identified. Status post left stereotactic breast biopsy. BI/DIAG MAMM W/CAD, BILAT IMPRESSION: Stable bilateral diagnostic mammogram. One year follow-up recommended. (A) ASSESSMENT CATEGORY: BIRADS Category 2: Benign. A letter regarding these results will be sent to the patient by the facility within 30 days. Approximately 10% of breast cancers are not detected by mammography. A normal mammogram should not delay biopsy of a clinically suspicious abnormality. Electronically Signed: Rohit Bryant MD at 9:49 EDT ,
== END | disposition home or self-care (01) ==
LOC: OPBI 08:42
PROVIDERS: PCP Family Medicine; Referring Provider Family Medicine; Visit Provider Family Medicine
DX: R92.0 Mammographic microcalcification found on diagnostic imaging of breast (principal)
CPT/HCPCS: 77062; 77066; G0279

== ENCOUNTER 2023-12-06 13:00 | Outpatient (RCR) | payer MEDICARE, BC, SELFPAY ==
[2023-10-15 10:09] VITALS: BMI 27.3
[2023-11-07 00:19] VITALS: BP 130/76
--- NOTE | 2023-11-15 09:10 | PCM.CR.ITP ---
Exercise - Initial Assessment Physician Prescribed Exercise Modalities: Treadmill (limited due to carpal tunnel surgery) and SciFit Stepper (limited due to carpal tunnel surgery) Nutrition - Initial Assessment Weight Mgt (Other Care) Height: 5 ft 5 in Weight:: 168 lb BMI: 27.9 BMI (Report if calculated above): 27 Core - Initial Assessment Hypertension Resting Blood Pressure:: 118/44 [place] [employer] Hypertension Guidelines Psychosocial - Initial Assess Target Goals Target Goals Patient Health Questionnaire PHQ-9 Screening 60-Day Re-eval Assessment: 1. Little interest or pleasure in doing things: Several days 2. Feeling down, depressed, or hopeless: Several days 3. Trouble falling or staying asleep, or sleeping too much: Nearly every day 4. Feeling tired or having little energy: Nearly every day 5. Poor appetite or overeating: More than half the days 6. Feeling bad about yourself -- or that you are a failure or have let yourself or your family down: More than half the days 7. Trouble concentrating on things, such as reading the newspaper or watching television: Not at all 8. Moving or speaking so slowly that other people could have noticed. Or the opposite - being so fidgety or restless that you have been moving around a lot more than usual: Several days 9. Thoughts that you would be better off , or of hurting yourself in some way: Not at all How difficult have these problems made it for you to do your work, take care of things at home, or get along with other people?: Somewhat difficult Total Score: 13 Self-Efficacy 6-Item Scale 60-Day Re-eval Assessment: We would like to know how confident you are in doing certain activities. Please select your confidence level for: Fatigue Select Number: 4 Physical Discomfort or Pain Select Number: 5 Emotional Distress Select Number: 4 Other Symptoms or Health Problems Select Number: 4 Different Tasks and Activities Select Number: 5 Medication Select Number: 6 Total Score:: 4 Nutrition Survey Nutrition Survey Instructions Scoring Instructions Exercise - 30-day Assessment Physician Prescribed Exercise Modalities: Treadmill (limited due to carpal tunnel surgery) and SciFit Stepper (limited due to carpal tunnel surgery) Exercise - 60-day Assessment Visit Date of Eval: 11/15/23 Session #:: 14 Physician Prescribed Exercise Modalities: Treadmill (limited due to carpal tunnel surgery) and SciFit Stepper (limited due to carpal tunnel surgery) Frequency: 3x/week for 12 weeks [36 sessions] Intensity: 60-80% of age predicted maximum heart rate reserve Duration: 30 - 45 minutes Current METSs:: 3 Target Heart Rate:: 95-123 Current RPE:: 11 Maximum Excercise HR:: 104 Resting Blood Pressure: 138/72 Maximum Exercise Blood Pressure: 168/50 EKG Type: NSR with rare PAC Current Physical Activity or Exercising minutes: 31 Outcomes & Goals Goals:: Verbalizes understanding of THR, RPE & goal METS by session 6, Documents in home exercise log/reports 30 min aerobic 5 day/wk by DC and Demonstrates accurate pulse taking by DC Intervention & Plan Exercise Program Goals: Instruct on personal THR & RPE, Instruct on MET level & personal MET goal, Show patient to take own pulse /validate performance until accurate and Instruct on home exercise 30-day Reassessments 30 day Reassessments:: Progressing Reassessment Notes & Comments:: Pt able to utilize RPE scale correctly & attending class teaching pulse taking Physical Activity Home Exercise Physical Activity - Home Exercise: Safe Exercise, Warm-up, Self-monitoring, Cool-Down, Home Exercise > 30 min Daily and Sitting Time <3 hours/daily Outcomes & Goals Outcomes/Goals: Demonstrates correct Warm-up/exercise Cool-Down (S3) if = 2.5 METs, Verbalizes symptoms of exercise intolerance by Session 3 (S3) and Demonstrate safe equipment use (S3) & follows exercise prescrition (6) Intervention & Plan Plan/Intervention: Instruct warm-up & cool-down if exercising at > 2 METs, Instruct on symptoms of exercise intolerance & actions to take, Instruct & monitor on saf and Assess intial functional capacity & safety risk 30-day Reassessments 30 day Reassessments:: Progressing Reassessment Notes & Comments:: Pt verbalizes and completes warm up and cool down & can verbalize s/s of exercise intolerance Exercise - 90-day Assessment Physician Prescribed Exercise Modalities: Treadmill (limited due to carpal tunnel surgery) and SciFit Stepper (limited due to carpal tunnel surgery) Exercise - Final/Discharge Physician Prescribed Exercise Modalities: Treadmill (limited due to carpal tunnel surgery) and SciFit Stepper (limited due to carpal tunnel surgery) Nutrition - 30-Day Assessment Weight Mgt (Other Care) Height: 5 ft 5 in Weight:: 168 lb BMI: 27.9 BMI (Report if calculated above): 27 Nutrition - 60-Day Assessment Visit Date of Eval: 11/15/23 Session #:: 14 Cholesterol/Lipids (Other Core Measures) Lipid Medication: lipitor Determine presence & major risk factors that modify LDL goal: Hypertension or hypertensive medication and Low HDL cholesterol <40 mg/dL* Outcomes/Goals: Pt IDs own risk factors & lifestyle modifications by Session 10 and Verbalizes symptoms of angina & response by session 3. Intervention/Plan: Advocate for lipid panel cholesterol medication if applicable and Instruct on personal lipid levels & lipid goals/NCEP guidelines Referral to dietitian:: No 30-day Reassessments:: Progressing Reassessment Notes & Comments:: Pt currently taking cholesterol medication as prescribed, pt will need lipid panel drawn for this year Diabetes (Other Core Measures) Diabetes Type: Diagnosis Type II ICD-10 E11 Hgb A1C (4.2 -6.3): 6.8 Insulin dependent injection/pump?: No Non-Insulin Dependent?: Yes Do you monitor your blood sugar at home?: Yes Referral to Diabetic Clinic:: No Outcomes/Goals:: Able to state symptoms of (hypoglycemia), Able to state (how to take medications as prescribed) and Able to state (signs and symptoms of hypoglycemia and how to take medications as prescribed, how to take blood sugar) Intervention/Plan:: Instruct on (importance of blood sugar monitoring and carb controlled diet) 30-day Reassessments:: Progressing Reassessment Notes & Comments:: Pt takes blood sugars at home, pt attending nutrition classes, pt able to state signs and symptoms of low blood sugar Weight Mgt (Other Care) Not Applicable: No Height: 5 ft 5 in Weight:: 168 lb BMI: 27.9 BMI (Report if calculated above): 27 Diagnosis Overweight/Obesity BMI> 30% ICD-10 E66: No Diagnosis High BMI/Morbid Obesity BMI> 35% ICD-10 Z68: No Outcomes/Goals: Pt sets, maintains & shows weight loss goal & trend during rehab Intervention/Plan: Instruct on ideal BMI & set weight loss goal w/patient, Assist pt to ID & incorporate diet changes for weight loss by S9, Refer to Structured Weight Loss program as appropriate and Encourage goal of using 250-300dcal per session for weight loss 30 day Reassessments:: Met Reassessment Notes & Comments:: Pt attending nutrition and healthy habits classes, pt exercising as tolerated at home to maintain healthy weight Healthy Eating Habits Will attend diet classes:: Yes Outcomes/Goals:: Consume diet rich in vegs,fruits,whole grain/high fiber,fish,lean meat and Limit sat/trans fats,cholesterol & added salts & sugars Intervention/Plan:: Assess current eating habits and Other Additional plan/interventions 30-day Reassessments:: Progressing Reassessment Notes & Comments:: Pt attending nutrition classes Education Gave educational materials for:: Signs & symptoms of hypoglycemia, Signs & symptoms of hyperglycemia, Relate diabetes to coronary artery disease and Healthy eating Core - Final Assessment Hypertension Resting Blood Pressure:: 118/44 [place] [employer] Hypertension Guidelines Core - 60-Day Assessment Visit Date of Eval: 11/15/23 Session #:: 14 Medication Compliance Preventative Medication(s):: Aspirin, Clopidogrel/P2Y12 inhibit, Statin/lipid and ARB (Angiotensi Rcap) H/O mental health issues: depression, anxiety, or addiction?: Yes Doesn?t believe in the benefits of treatment?: No Believes medications are unnecessary or harmful?: No Has a concern about medication side effects?: No Expresses concern over the cost of medications?: No Outcomes/Goals: Verbalizes medications,desired effect & common side effects @ DC, Pt self-reports following medication regimen and Keeps card in wallet w/medications listed by DC Interventions/plans: Instruct on medication effects & side effects, Review medication list w/patient every two weeks and Instruct importance of taking meds as ordered & assist problem solving 30-day Reassessments:: Met Reassessment Notes & Comments:: Pt taking medications as prescribed, pt has a support group in place Tobacco Use Tobacco Use: Non-smoker Do you use smokeless tobacco?: No Hypertension Hypertension Diagnosis:: Hypertension ICD-10 I10 Resting Blood Pressure:: 138/72 Resting Blood Pressure:: 118/44 [place] [employer] Hypertension Guidelines Peak Exercise Blood Pressure:: 168/50 Outcomes/Goals: Able to verbalize/achieve optimal blood pressure <130/80 and Incorporates diet changes & exercise for blood pressure control by DC Interventions/plan: Instruct on optimal blood pressure, hypertension & medications and Instruct on effects of sodium, alcohol, stress, exercise &hypertension 30 day Reassessments:: Progressing Reassessment Notes & Comments:: Pt taking medications as prescribed, pt understands effects of sodium and stress to blood pressure and coping mechanisms to deal with stress, understands need for low sodium diet Tobacco Cessation Referral Smoking Cessation Referral:: No Individual Education/Counseling:: No Education Schedule Given:: No Psychosocial - 30-Day Assess Target Goals Target Goals Outcomes/Goals: See list Psychosocial Outcomes/Goals:: ID's personal stressors & 2 strategies to manage stress by discharge and Other Additional outcome/goals: Psychosocial - 60-Day Assess VIsit Date of Eval: 11/15/23 Session #:: 15 History of previous Mental disease:: Yes History of Emotional Disorders: Anxious and Depression Target Goals Target Goals Psychosocial Test Tool Used:: [employer] QOL Cardiac and PHQ-9 Questionnaire phq-9 Severity Outcomes/Goals: See list Psychosocial Outcomes/Goals:: ID's personal stressors & 2 strategies to manage stress by discharge and Other Additional outcome/goals: Intervention/Plan: See List Interventions/Plan:: Assess stressors,coping strategies & signs of derpression on admission, Instruct/assist pt to develop coping & personal stress Mgt strategies, Refer to Behavioral Health if appropriate, Refer to Physician if appropriate, Instruct patient to recognize signs & symptoms of depression and Instruct patient to recog 30-day Reassessments: 30 day Reassessments:: Met Reassessment Notes & Comments:: Pt with adequate stress management strategies, pt recognizes signs and symptoms of depression, pt taking medications as prescribed Psychosocial - 90-Day Assess Target Goals Target Goals Psychosocial - Final Assessmen Target Goals Target Goals Nutrition - 90-Day Assessment Weight Mgt (Other Care) Height: 5 ft 5 in Weight:: 168 lb BMI: 27.9 BMI (Report if calculated above): 27 Nutrition - Final Assessment Weight Mgt (Other Care) Height: 5 ft 5 in Weight:: 168 lb BMI: 27.9 BMI (Report if calculated above): 27
[2023-11-15 09:35] VITALS: BP 118/44; BP 138/72; BMI 27.0; BMI 27.9
== END 2023-12-06 23:59 ==
LOC: CR 13:00
PROVIDERS: PCP Family Medicine
DX: I25.10 Atherosclerotic heart disease of native coronary artery without angina pectoris (principal); Z95.5 Presence of coronary angioplasty implant and graft; I35.0 Nonrheumatic aortic (valve) stenosis; D86.9 Sarcoidosis, unspecified; G47.33 Obstructive sleep apnea (adult) (pediatric)
CPT/HCPCS: 93798

== ENCOUNTER 2023-12-22 13:00 | Outpatient (RCR) | payer MEDICARE, BC, SELFPAY ==
[2023-11-15 09:35] VITALS: BMI 27.9
[2023-12-07 00:11] VITALS: BP 118/44; BP 130/76; BP 138/72
--- NOTE | 2023-12-15 08:29 | CR.ITP_ITS ---
Exercise - Initial Assessment Physician Prescribed Exercise Modalities: Treadmill and SciFit Stepper Nutrition - Initial Assessment Weight Mgt (Other Care) Height: 5 ft 5 in Weight:: 166 lb BMI: 27.6 Psychosocial - Initial Assess Target Goals Target Goals Referral to Behavioral Health PS - Interventions: Yes: Attend Stress Management Classes Patient Health Questionnaire PHQ-9 Screening 90-Day Re-eval Assessment: 1. Little interest or pleasure in doing things: Several days 2. Feeling down, depressed, or hopeless: Several days 3. Trouble falling or staying asleep, or sleeping too much: Nearly every day 4. Feeling tired or having little energy: Nearly every day 5. Poor appetite or overeating: More than half the days 6. Feeling bad about yourself -- or that you are a failure or have let yourself or your family down: More than half the days 7. Trouble concentrating on things, such as reading the newspaper or watching television: Not at all 8. Moving or speaking so slowly that other people could have noticed. Or the opposite - being so fidgety or restless that you have been moving around a l ot more than usual: Several days 9. Thoughts that you would be better off , or of hurting yourself in some way: Not at all How difficult have these problems made it for you to do your work, take care of things at home, or get along with other people?: Somewhat difficult Total Score: 13 Self-Efficacy 6-Item Scale 90-Day Re-eval Assessment: We would like to know how confident you are in doing certain activities. Please select your confidence level for: Fatigue Select Number: 4 Physical Discomfort or Pain Select Number: 5 Emotional Distress Select Number: 4 Other Symptoms or Health Problems Select Number: 4 Different Tasks and Activities Select Number: 6 Medication Select Number: 6 Total Score:: 4 Nutrition Survey Nutrition Survey Instructions Scoring Instructions Exercise - 30-day Assessment Physician Prescribed Exercise Modalities: Treadmill and SciFit Stepper Exercise - 60-day Assessment Physician Prescribed Exercise Modalities: Treadmill and SciFit Stepper Exercise - 90-day Assessment Visit Date of Eval: 12/15/23 Session #:: 24 Physician Prescribed Exercise Modalities: Treadmill and SciFit Stepper Frequency: 3x/week for 12 weeks [36 sessions] Intensity: 60-80% of age predicted maximum heart rate reserve Duration: 30 - 45 minutes Current METSs:: 3.3 Target Heart Rate:: 95-123 Current RPE:: 11-12 Maximum Excercise HR:: 109 Resting Blood Pressure: 148/70 Maximum Exercise Blood Pressure: 144/54 EKG Type: SR to ST with rare PAC Outcomes & Goals Goals:: Verbalizes understanding of THR, RPE & goal METS by session 6, Documents in home exercise log/reports 30 min aerobic 5 day/wk by DC, Demonstrates accurate pulse taking by DC and Other additional outcome/goals: see below Intervention & Plan Exercise Program Goals: Instruct on personal THR & RPE, Instruct on MET level & personal MET goal, Show patient to take own pulse /validate performance until accurate, Instruct on home exercise and Other additional plan/int 30-day Reassessments 30 day Reassessments:: Met Physical Activity Home Exercise Physical Activity - Home Exercise: Safe Exercise, Warm-up, Self-monitoring, Cool-Down, Home Exercise > 30 min Daily and Sitting Time <3 hours/daily Outcomes & Goals Outcomes/Goals: Demonstrates correct Warm-up/exercise Cool-Down (S3) if = 2.5 METs, Verbalizes symptoms of exercise intolerance by Session 3 (S3), Demonstrate safe equipment use (S3) & follows exercise prescrition (6) and Other: See below Intervention & Plan Plan/Intervention: Instruct warm-up & cool-down if exercising at > 2 METs, Instruct on symptoms of exercise intolerance & actions to take, Instruct & monitor on saf, Assess intial functional capacity & safety risk and Other See below 30-day Reassessments 30 day Reassessments:: Met Exercise - Final/Discharge Physician Prescribed Exercise Modalities: Treadmill and SciFit Stepper Nutrition - 30-Day Assessment Weight Mgt (Other Care) Height: 5 ft 5 in Weight:: 166 lb BMI: 27.6 Nutrition - 60-Day Assessment Weight Mgt (Other Care) Height: 5 ft 5 in Weight:: 166 lb BMI: 27.6 Core - 30-Day Assessment Hypertension [place] [employer] Hypertension Guidelines Reassessment Notes & Comments:: 12/08/23 losartan decreased to 50 mg QD and amlodipine 5 mg QD added Core - Final Assessment Hypertension [place] [employer] Hypertension Guidelines Reassessment Notes & Comments:: 12/08/23 losartan decreased to 50 mg QD and amlodipine 5 mg QD added Core - 90 Day Assessment Visit Date of Eval: 12/15/23 Session #:: 24 Medication Compliance Preventative Medication(s):: Aspirin, Clopidogrel/P2Y12 inhibit, Statin/lipid and ARB (Angiotensi Rcap) H/O mental health issues: depression, anxiety, or addiction?: Yes Doesn?t believe in the benefits of treatment?: No Believes medications are unnecessary or harmful?: No Has a concern about medication side effects?: No Expresses concern over the cost of medications?: No Outcomes/Goals: Verbalizes medications,desired effect & common side effects @ DC, Pt self-reports following medication regimen, Keeps card in wallet w/medications listed by DC and Other additional outcome/goals: Interventions/plans: Instruct on medication effects & side effects, Review medication list w/patient every two weeks, Instruct importance of taking meds as ordered & assist problem solving and Other additional 30-day Reassessments:: Met Tobacco Use Tobacco Use: Non-smoker Do you use smokeless tobacco?: No 30-day Reassessments:: Met Hypertension Hypertension Diagnosis:: Hypertension ICD-10 I10 Resting Blood Pressure:: 148/70 [place] [employer] Hypertension Guidelines Peak Exercise Blood Pressure:: 144/54 Outcomes/Goals: Able to verbalize/achieve optimal blood pressure <130/80, Incorporates diet changes & exercise for blood pressure control by DC and Other additional outcomes/goals Interventions/plan: Instruct on optimal blood pressure, hypertension & medications, Instruct on effects of sodium, alcohol, stress, exercise &hypertension and Other additional plan/interventions 30 day Reassessments:: Progressing Reassessment Notes & Comments:: 12/08/23 losartan decreased to 50 mg QD and amlodipine 5 mg QD added Tobacco Cessation Referral Smoking Cessation Referral:: No Individual Education/Counseling:: No Education Schedule Given:: Yes Psychosocial - 30-Day Assess Target Goals Target Goals Referral to Behavioral Health PS - Interventions: Yes: Attend Stress Management Classes Psychosocial - 60-Day Assess Target Goals Target Goals Referral to Behavioral Health PS - Interventions: Yes: Attend Stress Management Classes Psychosocial - 90-Day Assess VIsit Date of Eval: 12/15/23 Session #:: 24 Not Applicable: Yes History of Emotional Disorders: Anxious and Depression Target Goals Target Goals Psychosocial Test Tool Used:: [employer] QOL Cardiac and PHQ-9 Questionnaire phq-9 Severity Referral to Behavioral Health PS - Interventions: Yes: Attend Stress Management Classes Outcomes/Goals: See list Psychosocial Outcomes/Goals:: ID's personal stressors & 2 strategies to manage stress by discharge and Other Additional outcome/goals: Intervention/Plan: See List Interventions/Plan:: Assess stressors,coping strategies & signs of derpression on admission, Instruct/assist pt to develop coping & personal stress Mgt strategies, Refer to Behavioral Health if appropriate, Refer to Physician if appropriate, Instruct patient to recognize signs & symptoms of depression, Instruct patient to recog and Other additional plan/intervention 30-day Reassessments: 30 day Reassessments:: Met Reassessment Notes & Comments:: pt has support group and is doing well Psychosocial - Final Assessmen Target Goals Target Goals Referral to Behavioral Health PS - Interventions: Yes: Attend Stress Management Classes Nutrition - 90-Day Assessment Visit Date of Eval: 12/15/23 Session #:: 24 Cholesterol/Lipids (Other Core Measures) Determine presence & major risk factors that modify LDL goal: Hypertension or hypertensive medication, Low HDL cholesterol <40 mg/dL*, Family history of premature CHD in Male < 55 years: female <65 yearsFa and Age men > 45 years; women >/= 55 years Outcomes/Goals: Pt IDs own risk factors & lifestyle modifications by Session 10, Verbalizes symptoms of angina & response by session 3., Pt independently manages and Other Additional Outcomes/Goals: Intervention/Plan: Advocate for lipid panel cholesterol medication if applicable, Instruct on personal lipid levels & lipid goals/NCEP guidelines, Instruct on cholesterol and Other additional plan/int 30-day Reassessments:: Met Diabetes (Other Core Measures) Diabetes Type: Diagnosis Type II ICD-10 E11 Hgb A1C (4.2 -6.3): 6.8 Insulin dependent injection/pump?: No Non-Insulin Dependent?: Yes Do you monitor your blood sugar at home?: Yes Referral to Diabetic Clinic:: No Outcomes/Goals:: Able to state symptoms of, Able to state, Able to state and Other additional Intervention/Plan:: Instruct on, Refer to, Instruct on and Other 30-day Reassessments:: Met Weight Mgt (Other Care) Height: 5 ft 5 in Weight:: 166 lb BMI: 27.6 Diagnosis Overweight/Obesity BMI> 30% ICD-10 E66: No Diagnosis High BMI/Morbid Obesity BMI> 35% ICD-10 Z68: No Outcomes/Goals: Pt sets, maintains & shows weight loss goal & trend during rehab and Other additional outcomes/goals Intervention/Plan: Instruct on ideal BMI & set weight loss goal w/patient, Assist pt to ID & incorporate diet changes for weight loss by S9, Refer to Structured Weight Loss program as appropriate, Encourage goal of using 250- 300dcal per session for weight loss and Other additional plan/interventions 30 day Reassessments:: Met Healthy Eating Habits Will attend diet classes:: Yes Outcomes/Goals:: Consume diet rich in vegs,fruits,whole grain/high fiber,fish,lean meat, Limit sat/trans fats,cholesterol & added salts & sugars and Other additional outcome/goals: Intervention/Plan:: Assess current eating habits and Other Additional plan/interventions 30-day Reassessments:: Met Education Gave educational materials for:: Signs & symptoms of hypoglycemia, Signs & symptoms of hyperglycemia, Relate diabetes to coronary artery disease and Healthy eating Nutrition - Final Assessment Weight Mgt (Other Care) Height: 5 ft 5 in Weight:: 166 lb BMI: 27.6
[2023-12-15 08:36] VITALS: BP 148/70
[2023-12-15 08:46] VITALS: BP 148/70; BMI 27.6
== END 2024-01-06 23:59 ==
LOC: CR 13:00
PROVIDERS: PCP Family Medicine
DX: I25.10 Atherosclerotic heart disease of native coronary artery without angina pectoris (principal); I35.0 Nonrheumatic aortic (valve) stenosis; D86.9 Sarcoidosis, unspecified; G47.33 Obstructive sleep apnea (adult) (pediatric); Z95.5 Presence of coronary angioplasty implant and graft

== ENCOUNTER → 2024-02-18 | Outpatient (CLI) | payer MEDICARE, BC, SELFPAY ==
[2024-02-18 09:06] VITALS: BMI 27.6
[2024-02-18 10:17] LABS: AST(SGOT) 39 U/L (15-37); Alanine Aminotransfer ALT/SGPT 30 U/L (13-56); Albumin, Serum 3.7 g/dL (3.2-5.0); Alkaline Phosphatase 97 U/L (45-117); Bilirubin, Direct 0.12 mg/dL (0.00-0.30); Cholesterol 114 mg/dL (200); Globulin 3.6 g/dL (2.2-4.2); High Density Lipoprotein 31 mg/dL; Protein, Total 7.3 g/dL (6.4-8.2); Triglycerides 278 mg/dL; Very Low Density Lipoprotein 56 mg/dL (5-40)
== END | disposition home or self-care (01) ==
PROVIDERS: PCP Family Medicine; Referring Provider Nurse Practitioner Gerontology; Visit Provider Nurse Practitioner Gerontology
DX: I25.10 Atherosclerotic heart disease of native coronary artery without angina pectoris (principal)
CPT/HCPCS: 36415; 80061; 80076

== ENCOUNTER → 2024-02-24 | Outpatient (CLI) | payer MEDICARE, BC, SELFPAY ==
[2024-02-18 09:06] VITALS: BMI 27.6
[2024-02-24 11:22] LABS: Absolute Lymphocyte Count 1.68 X10^3/uL (0.83-4.51); Absolute Neutrophil Count 5.1 X10^3/uL (2.0-7.7); Basophil# 0.03 X10^3/uL; Basophil% 0.4 % (0-1); Eosinophil# 0.29 X10^3/uL; Eosinophils% 3.8 % (0-5); Hematocrit 31.9 % (37-47); Hemoglobin 10.2 g/dL (12.0-15.0); Lymphocyte # 1.68 X10^3/ul (0.83-4.51); Mean Corpuscular Hgb 28.2 pg (27.0-32.0); Mean Corpuscular Volume 88.1 fL (81-99); Mean Platelet Vol. 11.2 fl (6.2-12.0); Monocyte# 0.55 X10^3/uL; Monocyte% 7.2 % (0-10); NRBC Flagged by Analyzer 0 % (0-5); Neutrophil # 5.06 X10^3/uL (2.7-7.7); Neutrophil % 66.3 % (47-70); Platelet Count 163 K/mm3 (150-450); RBC Distribution Width CV 13.6 % (11.6-14.6); RBC Distribution Width SD 44.1 fl (35.1-43.9); Red Blood Count 3.62 M/mm3 (4.2-5.4); White Blood Count 7.6 K/mm3 (4.4-11.0)
[2024-02-24 11:56] LABS: Anion Gap 5 (5-15); BUN 25 mg/dL (7-18); BUN/Creat Ratio 22.5 RATIO (10-20); Calcium,Total 9.2 mg/dL (8.5-10.1); Chloride 114 mmol/L (98-107); Creatinine, Serum 1.11 mg/dL (0.55-1.02); EST Glomerular Filtration Rate 51 mL/min (>60); Est Glom Filt Rate - Afr Amer 61 mL/min (>60); Ferritin 51 ng/mL (8-252); Glucose 176 mg/dL (74-106); Iron 60 ug/dL (50-170); Iron Binding Capacity,Total 393 ug/dL (250-450); Magnesium 2.6 mg/dL (1.6-2.6); Potassium 4.4 mmol/L (3.5-5.1); Sodium Level 139 mmol/L (136-145); T4 Free Direct 1.15 ng/dL (0.76-1.46)
== END | disposition home or self-care (01) ==
LOC: LAB 10:59
PROVIDERS: PCP Family Medicine; Referring Provider Nurse Practitioner Family; Visit Provider Nurse Practitioner Family
DX: R00.2 Palpitations (principal); Z95.2 Presence of prosthetic heart valve; I10 Essential (primary) hypertension; Z95.5 Presence of coronary angioplasty implant and graft; D64.9 Anemia, unspecified
CPT/HCPCS: 36415; 80048; 82728; 83540; 83550; 83735; 84439; 84443; 85025

== ENCOUNTER → 2024-03-13 | Outpatient (CLI) | payer MEDICARE, BC, SELFPAY ==
[2024-02-18 09:06] VITALS: BMI 27.6
--- NOTE | 2024-03-13 14:52 | STRESSREP ---
Stress Test Report Pharmacologic myocardial perfusion stress test. 78-year-old lady with a history of chest pain Resting EKG demonstrates sinus rhythm with a rate of 74 bpm. Resting blood pressure is 122/60 mmHg. 0.4 mg of regadenoson was infused per usual protocol followed by rapid intravenous saline flush injection. Continuous EKG monitoring was performed. The maximum heart rate was 76 bpm which was 52% of max impacted heart rate the maximum workload was 1 metabolic equivalent. At rest there were no ST or T wave changes noted to suggest ischemia and at peak infusion nonspecific ST changes were noted which did not meet the criteria for ischemia. No clinical angina is noted. The final blood pressure was 112/54 mmHg. Myocardial perfusion protocol. 11.5 mCi of technetium 99m sestamibi was injected at rest. 0.4 mg of regadenoson was infused per usual protocol. At peak infusion 34.2 mCi of technetium 99m sestamibi was injected stress images were obtained stress and rest images were reconstructed and compared in the short axis vertical long and horizontal long axis. Gated images were also obtained. Perfusion SPECT analysis: Review of the stress images demonstrate normal uptake of tracer noted in all areas of the myocardium. The resting images similar demonstrated normal uptake of tracer noted in all areas of the myocardium. No areas of reversibility are noted to suggest ischemia and no previous infarct is noted. Gated SPECT analysis: The gated ejection fraction is 79%. Conclusion: Normal pharmacologic myocardial perfusion stress test. Preserved ejection fraction.
== END | disposition home or self-care (01) ==
LOC: CVS 07:01
PROVIDERS: PCP Family Medicine; Referring Provider Nurse Practitioner Gerontology; Visit Provider Nurse Practitioner Gerontology
DX: R07.9 Chest pain, unspecified (principal); Z95.5 Presence of coronary angioplasty implant and graft
CPT/HCPCS: 78452; 93017; A9500; A4216; J2785

== ENCOUNTER → 2024-09-12 | Outpatient (CLI) | payer MEDICARE, BC, SELFPAY ==
[2024-02-18 09:06] VITALS: BMI 27.6
--- NOTE | 2024-09-12 09:43 | ART_ITS ---
Reason For Study Reason For Study: PVD Procedure A bilateral lower extremity continuous wave Doppler with analog waveform analysis,segmental pressures,and ankle brachial indexes without exercise. Left Segmental Pressures Left brachial= 136mmHg. Left posterior tibial artery = >254mmHg. Left dorsalis pedis artery = >254mmHg. Left digit = 109 mmHg. The left posterior tibial artery waveforms are biphasic. The left dorsalis pedis waveforms are triphasic. Right Segmental Pressures Right brachial= 137mmHg. Right posterior tibial artery = >254mmHg. Right dorsalis pedis artery = >254mmHg. Right digit = 55 mmHg. The right posterior tibial artery waveforms are biphasic. The right dorsalis pedis waveforms are triphasic. Indices The right ankle brachial index by the posterior tibial artery is N/C. The right ankle brachial index by the dorsalis pedis is N/C. The right digital-brachial index is 0.40. The left ankle brachial index by the posterior tibial artery is N/C. The left ankle brachial index by the dorsalis pedis is N/C. The left digital-brachial index is 0.80. VL/Lower Ext Art Exam w/o Exercis Interpretation Summary Triphasic and biphasic Doppler waveforms are noted at ankle level bilaterally. Pulse-volume recordings appear diminished at digital level on the right, but satisfactory at all other levels bilaterally . Resting ankle-brachial indices could not be determined on either side due to the non-compressibility of the vasculat ure at ankle level bilaterally. The right digital-brachial index is moderately diminished. The left digital-brachial inde x is normal. There is evidence of arterial calcification at ankle level bilaterally. 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 There is no evidence of significant arter ial occlusive disease in the left lower extremity. Ordering Physician: Cruz Iniguez Referring Physician: Star Ta Performed By: Luis Guerrero RVT
== END | disposition home or self-care (01) ==
LOC: CVS 09:41
PROVIDERS: PCP Family Medicine; Referring Provider Podiatrist; Visit Provider Podiatrist
DX: I73.89 Other specified peripheral vascular diseases (principal)
CPT/HCPCS: 93923

== ENCOUNTER → 2024-09-22 | Outpatient (CLI) | payer MEDICARE, BC, SELFPAY ==
[2024-02-18 09:06] VITALS: BMI 27.6
[2024-09-22 15:20] LABS: Hematocrit 31.8 % (37-47); Hemoglobin 10.4 g/dL (12.0-15.0); Immature Granulocytes Count 0.030 X10^3/uL (0.0-0.0); Mean Corp Hgb Conc 32.7 g/dL (32-36); Mean Corpuscular Volume 87.4 fL (81-99); Mean Platelet Vol. 11.7 fl (6.2-12.0); NRBC Flagged by Analyzer 0 % (0-5); Platelet Count 164 K/mm3 (150-450); RBC Distribution Width CV 13.2 % (11.6-14.6); RBC Distribution Width SD 42.5 fl (35.1-43.9); Red Blood Count 3.64 M/mm3 (4.2-5.4); White Blood Count 7.1 K/mm3 (4.4-11.0)
[2024-09-22 16:27] LABS: AST(SGOT) 38 U/L (<=31); Alanine Aminotransfer ALT/SGPT 27 U/L (<=34); Albumin, Serum 4.4 g/dL (3.4-4.8); Alkaline Phosphatase 110 U/L (35-104); Anion Gap 13 (5-15); BUN 18 mg/dL (4-19); BUN/Creat Ratio 15.1 RATIO (10-20); Calcium,Total 9.8 mg/dL (7.6-11.0); Carbon Dioxide 18.4 mmol/L (21.0-32.0); Chloride 102 mmol/L (98-108); Globulin 3.2 g/dL (2.2-4.2); Glucose 130 mg/dL (70-99); Potassium 5.3 mmol/L (3.3-5.1)
[2024-09-22 16:29] LABS: Creatinine, Urine (random) 85.20 mg/dL (28.00-217.00); Microalbumin,Random Urine < 12.0 mg/L (<20 mg/L)
[2024-09-22 16:56] LABS: Ferritin 61 ng/mL (22-378); Vitamin B12 2871 pg/mL (180-914)
[2024-09-22 17:02] LABS: CRP < 3.00 mg/L (0.0-3.0)
[2024-09-25 14:08] LABS: PROEL- A/G Ratio 1.1 (0.7-1.7); PROEL- Albumin 3.8 g/dL (2.9-4.4); PROEL- Alpha-1 Globulin 0.3 g/dL (0.0-0.4); PROEL- Alpha-2 Globulin 0.9 g/dL (0.4-1.0); PROEL- Beta Globulin 1.3 g/dL (0.7-1.3); PROEL- Gamma Globulin 0.9 g/dL (0.4-1.8); PROEL- Globulin, Total 3.4 g/dL (2.2-3.9); PROEL- TOTAL PROTEIN 7.2 g/dL (6.0-8.5); PROEL-M-Spike Not Observed g/dL (Not Observed)
== END | disposition home or self-care (01) ==
LOC: MTLAB 11:16
PROVIDERS: PCP Family Medicine; Referring Provider Family Medicine; Visit Provider Internal Medicine
DX: K50.80 Crohn's disease of both small and large intestine without complications (principal); E11.42 Type 2 diabetes mellitus with diabetic polyneuropathy; R53.83 Other fatigue
CPT/HCPCS: 36415; 80053; 82043; 82570; 82607; 82728; 83036; 84165; 85025; 86140

== ENCOUNTER → 2024-11-20 | Outpatient (CLI) | payer MEDICARE, BC, SELFPAY ==
[2024-02-18 09:06] VITALS: BMI 27.6
[2024-11-20 12:53] LABS: AST(SGOT) 42 U/L (<=31); Alanine Aminotransfer ALT/SGPT 28 U/L (<=34); Albumin, Serum 4.2 g/dL (3.4-4.8); Alkaline Phosphatase 96 U/L (35-104); Bilirubin, Direct 0.16 mg/dL (0.00-0.30); Globulin 3.1 g/dL (2.2-4.2)
== END | disposition home or self-care (01) ==
LOC: MFPLAB 10:48
PROVIDERS: PCP Family Medicine; Visit Provider Internal Medicine
DX: R94.5 Abnormal results of liver function studies (principal)
CPT/HCPCS: 36415; 80076